=== PATIENT | female | born 1955 | race Caucasian/White ===

== ENCOUNTER 2021-07-16 11:20 | Emergency (ER) | payer MEDICARE, SELFPAY ==
[2021-07-16 11:21] VITALS: BP 187/110; PULSE 80; RESP 18; TEMP 36.1; O2SAT 97; BMI 29.8
--- NOTE | 2021-07-16 11:42 | EDS_ITS ---
HPI History of Present Illness Chief Complaint: Fall Narrative Narrative: Mechanical fall right hip pain 8 AM this morning. Visiting from [place] daughter's house, coming down wooden steps slipped falling and bouncing down 6 steps. No head injuries. No neck or back pain. Reports has a bad right hip for the past year. Seen an orthopedist in [place] initially. States since the fall cannot put weight on the hip. She had a wheelchair at home brought in by her daughter and wheelchair to the room. Denies any allergies. History of hypertension COPD hypercholesterolemia. Reports had MRIs in the past. Pain worse with weightbearing. [facility] Medical History COPD (chronic obstructive pulmonary disease) High cholesterol HTN (hypertension) Home Medications Myrbetriq 50 mg PO/SL DAILY 07/16/21 [History Last Taken Unknown] atorvastatin 40 mg PO/SL DAILY 07/16/21 [History Last Taken Unknown] docusate sodium [DOK] 100 mg PO DAILY #20 cap 07/16/21 [Rx Last Taken Unknown] gabapentin 300 mg PO/SL TID 07/16/21 [History Last Taken Unknown] lisinopril 10 mg PO/SL BID 07/16/21 [History Last Taken Unknown] oxycodone-acetaminophen [Percocet] 1 tab PO Q6H PRN 3 Days #12 tab 07/16/21 [Rx Last Taken Unknown] Allergy/AdvReac Type Severity Reaction Status Date / Time No Known Allergies Allergy Verified 07/16/21 11:26 Social History Smoking Status: Current every day smoker tobacco type: cigarettes ROS ROS ED Constitutional Constitutional ED: Denies chills, fever(s) or sweats Eyes Eyes: Denies change in vision ENT ENT ED: Denies dysphagia or sore throat Cardiovascular Cardiovascular: Denies chest pain, leg edema, palpitations or racing heartbeat Respiratory/Chest Respiratory/Chest: Denies cough, dyspnea or dyspnea on exertion Gastrointestinal Gastrointestinal: Denies abdominal pain, diarrhea, nausea or vomiting Genitourinary Genitourinary ED: Denies dysuria, hematuria or urinary frequency Musculoskeletal Musculoskeletal: Reports other Details: Right hip pain ; Denies back pain, extremity pain or neck pain Integumentary Denies rash or wounds Neurologic Neurologic: Denies headache(s), paresthesias or weakness EXAM Physical Exam Const Vital Signs: 07/16/21 11:21 07/16/21 11:29 07/16/21 13:32 Temperature 97 F L Temperature Source Temporal Pulse Rate 80 65 Respiratory Rate 18 16 Respiratory Effort Normal Respiratory Depth Normal Respiratory Pattern Normal Blood Pressure 187/110 H 159/98 H Blood Pressure Mean 135 118 Pulse Ox 97 98 Oxygen Delivery Method Room Air Room Air Room Air 07/16/21 15:14 Temperature Temperature Source Pulse Rate 86 Respiratory Rate 16 Respiratory Effort Respiratory Depth Respiratory Pattern Blood Pressure Blood Pressure Mean Pulse Ox 96 Oxygen Delivery Method Room Air Positive well nourished and well developed Constitutional Narrative: GCS 15. General Appearance ED: well developed and NAD HEENT Reports moist mucous membranes normocephalic and atraumatic Eyes PERRL, EOMs intact bilaterally and conjunctivae normal General Eye ED: Yes normal appearance of both eyes Neck no lymphadenopathy and supple Neck Narrative: No midline tenderness or step-offs. General: Negative for tenderness Chest Wall Chest: Negative for tenderness Resp normal respiratory effort and normal air movement Effort and Inspection: symmetric chest movement; Negative for respiratory distress Cardio regular rate, regular rhythm and no murmurs Peripheral Pulses: pulses 2+ throughout GI normal to inspection, nondistended, normoactive bowel sounds and non-tender Palpation: Negative for guarding or rebound tenderness present Back/Spine no CVA tenderness and no thoracic nor lumbar tenderness Back/Spine Narrative: No midline thoracic or lumbar tenderness. No step-offs. No ecchymosis. Extremity Extremity Narrative: No pelvic or ischial bone tenderness on exam. Right lower extremity no shortening or rotation, however positive logroll with pain in the groin region. Pulses intact distally. General Extremety ED: Negative for edema or tenderness General Extremity: Negative for edema Neuro oriented x3 and no sensory deficits noted Sensorium / Orientation: awake and alert Skin no rashes or lesions noted and no wounds MDM MDM MDM Narrative Medical decision making narrative: Patient mechanical fall right hip injury pain with logroll there is no shortening or rotation. X-ray reviewed by myself read by radiology no fractures however severe degenerative changes known for the past year per the patient. Patient reports did not attempt to ambulate due to pain, MRI was ordered for definitive rule out however unable to obtain due to the weekend. CT scan was obtained negative for fracture severe changes noted similar to the x-ray. She was ambulated with a walker still had pain however can still ambulate. Patient reported she would like to go home, I discussed with her definitive rule out is the MRI. She understands this. She is given follow-up with orthopedics as an outpatient. She states she does not leave home to in [place] until August 12. Prescription for pain medicines to use along with stool softeners. Return precautions discussed. All questions were answered. Lab Data Attestation: I reviewed the patient's lab results. Radiography X-Ray: Right Hip, Read by ED Physician and Read by Radiologist Diagnostic Testing: Clinical Impression(s) from Imaging Studies Hip/Pelvis X-Ray 07/16/21 12:20 IMPRESSION: No acute injury. Right end-stage hip degeneration. Electronically Signed: Kaleigh Jones MD at 13:19 EDT Tel , Service support , Pelvis CT 07/16/21 13:28 IMPRESSION: No acute injury. Right end-stage hip degeneration. Electronically Signed: Kaleigh Jones MD at 14:44 EDT Tel , Service support , Discharge Plan Triage Chief Complaint: Fall ED Provider: Wilfredo Vasques Dx/Rx/DC Orders Clinical Impression: Contusion of hip, right, Fall Instructions: ED Hip Contusion Prescriptions: New oxycodone-acetaminophen [Percocet] 5-325 mg tablet 1 tab PO Q6H PRN (Reason: pain) 3 Days Qty: 12 RF: 0 docusate sodium [DOK] 100 MG capsule 100 mg PO DAILY Qty: 20 RF: 0 No Action Myrbetriq 50 mg PO/SL DAILY RF: 0 atorvastatin 40 mg PO/SL DAILY RF: 0 gabapentin 300 mg PO/SL TID RF: 0 lisinopril 10 mg PO/SL BID RF: 0 Referrals: DAILY,MARIE [Other] Dhruv Cordova MD [STAFF PHYSICIAN] - 1 Week Activity Restrictions/Additional Instructions: X-ray and CT negative for fracture. 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 Use your walker. Pain continues will need further imaging. Follow-up with orthopedics. Return if any worsening symptoms. Disposition Disposition: Home, Self Care
[2021-07-16] MEDS: fentaNYL 100 MCG/2 ML Ampul 50 MCG IM (11:52)
--- NOTE | 2021-07-16 12:20 | RAD_ITS ---
STUDY: X-RAY - PELVIS AND RIGHT HIP REASON FOR EXAM: Female, 65 years old. injury fall this morning pain in the entire right hip TECHNIQUE: 3 views of the pelvis and hip. COMPARISON: None. FINDINGS: The bones of the pelvis are intact and the hips are located. There is end-stage degeneration of the right hip with femoral head AVN and partial collapse and extensive subchondral cystic change. Left hip is mildly degenerated. RAD/HIP, UNI W/ Pelvis 2-3 Views IMPRESSION: No acute injury. Right end-stage hip degeneration. Electronically Signed: Kaleigh Jones MD at 13:19 EDT Tel , Service support ,
--- NOTE | 2021-07-16 13:28 | CT_ITS ---
STUDY: CT PELVIS WITHOUT CONTRAST REASON FOR EXAM: Female, 65 years old. right hip injury RADIATION DOSAGE (If Supplied By Facility): CTDIvol = ( 26.19 ) mGy, DLP = ( 810.82 ) mGycm TECHNIQUE: Transaxial imaging of the pelvis was performed with oral contrast, and without intravenous administration of contrast material. Individualized dose optimization techniques were used for this CT. COMPARISON: None. FINDINGS: The bones of the pelvis are intact and the hips are located. There is end-stage degeneration of the right hip with femoral head AVN and partial collapse and extensive subchondral cystic change. Left hip is mildly degenerated. CT/Pelvis without IV Contrast IMPRESSION: No acute injury. Right end-stage hip degeneration. Electronically Signed: Kaleigh Jones MD at 14:44 EDT Tel , Service support ,
[2021-07-16 13:32] VITALS: BP 159/98; PULSE 65; RESP 16; O2SAT 98
[2021-07-16] MEDS: oxyCODONE 5 MG Tablet PO (14:46)
[2021-07-16 15:14] VITALS: PULSE 86; RESP 16; O2SAT 96
[2021-07-16 15:20] VITALS: BP 138/98; PULSE 83; RESP 18; O2SAT 94
== END 2021-07-16 15:32 | disposition home or self-care (01) ==
PROVIDERS: Emergency Provider Emergency Medicine
DX: S70.01XA Contusion of right hip, initial encounter (principal); F17.210 Nicotine dependence, cigarettes, uncomplicated; I10 Essential (primary) hypertension; E78.00 Pure hypercholesterolemia, unspecified; Z79.899 Other long term (current) drug therapy; W10.9XXA Fall (on) (from) unspecified stairs and steps, initial encounter
CPT/HCPCS: 72192; 73502; 96372; 99284; A4216

== ENCOUNTER 2021-07-27 04:44 | Observation (INO) | payer MEDICARE, SELFPAY ==
[2021-07-27] VITALS (8 sets, daily range): BP systolic 122–159; BP diastolic 89–101; PULSE 80–94; RESP 18–29; TEMP 36.4–36.7; O2SAT 93–97; BMI 29.9; BMI 29.5
--- NOTE | 2021-07-27 05:06 | EKG12_ITS ---
Test Reason : CP Blood Pressure : / mmHG Vent. Rate : 085 BPM Atrial Rate : 085 BPM P-R Int : 116 ms QRS Dur : 084 ms QT Int : 376 ms P-R-T Axes : 081 084 051 degrees QTc Int : 447 ms Normal sinus rhythm Normal ECG Confirmed by MAYUR BROWN, JUSTINO ([id number]), editorial cartoonist ZIYAD RIVERA ([id number]) on 07/28/2021 9:35:19 AM Referred By: PL Confirmed By:JUSTINO MERCHANT MD
--- NOTE | 2021-07-27 05:06 | RAD_ITS ---
STUDY: X-RAY CHEST REASON FOR EXAM: Female, 65 years old. chest pain TECHNIQUE: Single AP portable view of the chest. COMPARISON: None. FINDINGS: The lungs are clear and expanded. There is no demonstrated pleural abnormality. Normal size heart. Normal mediastinum and soumya. Normal visualized pulmonary arteries. There is atherosclerotic calcification of the aortic arch with tortuosity. There are diffuse degenerative changes of the visualized thoracic spine. Normal visualized ribs, clavicles, and shoulders. There is no demonstrated abnormality of the visualized soft tissue structures of the upper abdomen. RAD/Chest 1 View (Portable) IMPRESSION: Degenerative changes, as described above. No demonstrated acute cardiopulmonary process. Electronically Signed: Marty Felix MD at 5:32 EDT Tel , Service support ,
--- NOTE | 2021-07-27 05:08 | EDS_ITS ---
HPI History of Present Illness Chief Complaint: Chest Pain Informant: patient Narrative Narrative: Patient complains of chest pain. When I first see the patient is extremely difficult to get details from her. Is hard to get the character nature onset and duration of the pain. I have talked with the patient now 4 times to get the total story. She now describes as a pressure on the right side of her chest. It is also in the midsternal area. It radiates up to the neck when it was bad. It has been associated with nausea but no vomiting. She had diaphoresis and dyspnea. Its not clear if she was diaphoretic or not. This sounds like it woke her up or she was awake and then she developed it at about 2 AM today. It is waxed and waned but never gone away. She does have a history of cholesterol and blood pressure. She is a lifelong smoker. She has family history of heart disease with her father having heart disease starting in his 40s. She has no recent travel, surgery, immobilization, personal or family history of DVT or PE. She initially denied any lung disease or recent problems until this. Then she states she has been using her breathing treatments more the last few days. If I find out she does actually have a chronic lung disease in the form of COPD. She has been coughing more the last few days but bringing up just white sputum. No fevers or chills. She has never had pleuritic pain. No hemoptysis. Nothing specifically makes her symptoms better or worse this morning. She has had Covid immunizations. [facility] Medical History Arthritis COPD (chronic obstructive pulmonary disease) High cholesterol HTN (hypertension) Home Medications atorvastatin 40 mg PO DAILY 07/27/21 [History Last Taken Unknown] fluticasone furoate-vilanterol [Breo Ellipta] 1 inh INHALATION DAILY 07/27/21 [History Last Taken Unknown] lisinopril 10 mg PO DAILY 07/27/21 [History Last Taken Unknown] mirabegron [Myrbetriq] 50 mg PO DAILY 07/27/21 [History Last Taken Unknown] Allergy/AdvReac Type Severity Reaction Status Date / Time No Known Allergies Allergy Verified 07/27/21 04:48 Social History Smoking Status: Current every day smoker tobacco type: cigarettes ROS ROS ED Constitutional Constitutional ED: Reports sweats; Denies chills or fever(s) Eyes Eyes: Reports other Details: When this first occurred patient felt lightheaded with slight blurry vision but that was very transient and has resolved. ENT ENT ED: Denies ear pain or rhinorrhea Cardiovascular Cardiovascular: Reports as per HPI and chest pain Respiratory/Chest Respiratory/Chest: Reports cough, dyspnea and sputum Gastrointestinal Gastrointestinal: Reports nausea; Denies abdominal pain, diarrhea or vomiting Genitourinary Genitourinary ED: Denies dysuria or hematuria Musculoskeletal Musculoskeletal: Reports neck pain; Denies arthralgias, back pain or myalgias Integumentary Denies rash Neurologic Neurologic: Denies headache(s), paresthesias or weakness Endocrine Endocrinology: Denies polydipsia or polyuria Hematologic/Lymphatic Hematologic/Lymphatic: Denies easy bleeding or easy bruising Allergic/Immunologic Allergic/Immunologic ED: Denies mouth swelling or urticaria EXAM Physical Exam Const Vital Signs: 07/27/21 04:45 07/27/21 04:54 07/27/21 05:23 Temperature 97.9 F Temperature Source Oral Pulse Rate 88 80 Respiratory Rate 29 H Respiratory Pattern Normal Blood Pressure 154/101 H 159/94 H Blood Pressure Mean 118 Pulse Ox 94 Oxygen Delivery Method Room Air Oxygen Flow Rate (L/min) 07/27/21 05:27 07/27/21 05:28 07/27/21 06:10 Temperature Temperature Source Pulse Rate 84 82 Respiratory Rate 20 H Respiratory Pattern Blood Pressure 139/91 H 122/91 H Blood Pressure Mean 101 Pulse Ox 97 Oxygen Delivery Method Nasal Cannula Nasal Cannula Oxygen Flow Rate (L/min) 3 3 Patient looks a bit uncomfortable. She is not diaphoretic or pale. She carries on a normal conversation. Positive well nourished and well developed General Appearance ED: well developed; Negative for pallor HEENT Reports moist mucous membranes Eyes General Eye ED: Negative for pale conjunctiva or scleral icterus Neck no JVD Chest Wall inspection of chest normal and palpation of chest normal Chest Narrative: Palpation does not reproduce her symptoms. Resp normal respiratory effort Effort and Inspection: Negative for respiratory distress Auscultation: Negative for rales, rhonchi or wheezes Cardio regular rate, regular rhythm and no murmurs GI normal to inspection, nondistended, normoactive bowel sounds, soft to palpation, non-tender, non-distended and no masses Back/Spine no CVA tenderness Extremity normal to inspection General Extremety ED: Negative for edema, pulses abnormal or tenderness General Extremity: Negative for edema or pulses abnormal Neuro oriented x3 Sensorium / Orientation: awake and alert Psych mental status grossly normal Skin no rashes or lesions noted General Skin Exam: Negative for pallor Heart Score History: Moderately Suspicious ECG: Normal Age: >/= 65 years Risk Factors: >/= 3 Risk Factors or History of CAD Troponin: </= Normal Limit Score: 5 MDM MDM MDM Narrative Medical decision making narrative: It was very difficult to get the details of the story from the patient. She had initially denied any lung disease and then she talked about using her inhalers more for few days. I now find out she is on at least for her may be more inhalers but she does not recall the names. She is also on home oxygen at 2 L. She has a minimal white count elevation 11.1. Electrolytes show no marked abnormalities. Troponin so far is negative. D-dimer is elevated 0.83. We will get a scan of her chest. Chest x-ray did not show any acute process. We continue to get more information from the patient. She is on multiple in halers. She uses oxygen mostly at night. Although she denied any recent travel or trips, I read a recent note and she came up here from [facility] recently. I went and talked to her again. She states she did come up from [facility]. She drove. She thinks it was 1 or 2 months ago. On this repeat exam, her pain is completely gone after nitro. Her's D-dimer is positive. However this was ordered when we could not get any real details about her symptoms. We now have more details. Her symptoms sound like angina. She had pressure radiating to the neck with shortness of breath and nausea. No symptoms were relieved with nitro. I discussed case with hospitalist and the patient will be placed in PCU. Patient is also now complaining of anxiety. She has a long history of this now. She takes something at home but she does not remember what it is. But she feels anxious now but she is not having the pain or breathing problems. I will give her a small dose of Ativan. Lab Data Labs: Laboratory Results - last 24 hr 07/27/21 07/27/21 07/27/21 05:14 05:14 05:14 WBC 11.1 H RBC 4.81 Hgb 14.1 Hct 46.9 MCV 97.5 MCH 29.3 MCHC 30.1 L RDW Std Deviation 50.0 H RDW Coeff of Ricardo 13.8 Plt Count 220 MPV 10.0 Immature Gran % (Auto) 0.300 Neut % (Auto) 76.0 H Lymph % (Auto) 15.1 L [place] % (Auto) 7.3 Eos % (Auto) 0.9 Baso % (Auto) 0.4 Absolute Neuts (auto) 8.5 H Absolute Lymphs (auto) 1.68 Nucleated RBC % 0 Differential Comment SCANNED Platelet Estimate ADEQUATE D-Dimer Quant (PE/DVT) 0.83 H* Sodium 137 Potassium 4.2 Chloride 104 Carbon Dioxide 26.0 Anion Gap 7 BUN 15 Creatinine 1.03 H Estim Creat Clear Calc 45.77 Est GFR (MDRD) Af Amer 69 Est GFR (MDRD) Non-Af 57 L BUN/Creatinine Ratio 14.6 Glucose 111 H Calcium 8.7 Troponin I High Sens 18 Radiography Diagnostic Testing: Clinical Impression(s) from Imaging Studies Chest X-Ray 07/27/21 05:06 IMPRESSION: Degenerative changes, as described above. No demonstrated acute cardiopulmonary process. Electronically Signed: Marty Felix MD at 5:32 EDT Tel , Service support , EKG Initial EKG: Comments: EKG done for chest pain read by me shows normal sinus rhythm with a rate of 85. There is some baseline and motion artifact but no sign of acute ST elevation or depression. No ectopy. VT interval, QRS duration and QTc normal. No prior found. Discharge Plan Triage Chief Complaint: Chest Pain ED Provider: Kirk Garg Dx/Rx/DC Orders Clinical Impression: Chest pain Prescriptions: No Action atorvastatin 40 mg tablet 40 mg PO DAILY RF: 0 lisinopril 10 mg tablet 10 mg PO DAILY RF: 0 Myrbetriq 50 mg tablet extended release 24 hr 50 mg PO DAILY RF: 0 Breo Ellipta 100-25 mcg/dose blister with device 1 inh INHALATION DAILY RF: 0 Referrals: DAILY,MARIE [Other] Disposition Disposition: Acute Care Hospital [facility]
[2021-07-27] MEDS: Ondansetron 4 MG/2 ML Vial IV (05:20)
[2021-07-27 05:22] LABS: Absolute Lymphocyte Count 1.68 X10^3/uL (0.83-4.51); Absolute Neutrophil Count 8.5 X10^3/uL (2.0-7.7); Basophil# 0.04 X10^3/uL; Basophil% 0.4 % (0-1); Eosinophils% 0.9 % (0-5); Hematocrit 46.9 % (37-47); Hemoglobin 14.1 g/dL (12.0-15.0); Lymphocyte # 1.68 X10^3/ul (0.83-4.51); Lymphocyte % 15.1 % (19-41); Mean Corp Hgb Conc 30.1 g/dL (32-36); Mean Corpuscular Hgb 29.3 pg (27.0-32.0); Mean Corpuscular Volume 97.5 fL (81-99); Monocyte# 0.81 X10^3/uL; Monocyte% 7.3 % (0-10); NRBC Flagged by Analyzer 0 % (0-5); Neutrophil # 8.46 X10^3/uL (2.7-7.7); POSITIVE COUNT YES; Platelet Count 220 K/mm3 (150-450); RBC Distribution Width CV 13.8 % (11.6-14.6); Red Blood Count 4.81 M/mm3 (4.2-5.4); White Blood Count 11.1 K/mm3 (4.4-11.0)
[2021-07-27] MEDS: Aspirin 81 MG TAB.CHEW 324 MG PO (05:22)
[2021-07-27] MEDS: Nitroglycerin SL (ED/IMG/CATH) 0.4 MG TABLET SL ×2 (05:23→05:28)
[2021-07-27 05:24] LABS: Differential Indicated SCAN CRITERIA MET
[2021-07-27 05:41] LABS: Anion Gap 7 (5-15); BUN 15 mg/dL (7-18); BUN/Creat Ratio 14.6 RATIO (10-20); Calcium,Total 8.7 mg/dL (8.5-10.1); Chloride 104 mmol/L (98-107); Creatinine, Serum 1.03 mg/dL (0.55-1.02); EST Glomerular Filtration Rate 57 mL/min (>60); Est Glom Filt Rate - Afr Amer 69 mL/min (>60); Estimated Creatinine Clearance 45.77 ml/min; Glucose 111 mg/dL (74-106); Potassium 4.2 mmol/L (3.5-5.1); Sodium Level 137 mmol/L (136-145); Troponin-I HS 18 pg/mL (3.0-54.0)
[2021-07-27 05:45] LABS: D-Dimer Quantitative (DVT/PE) 0.83 FEU/ug/m (0.27-0.49)
[2021-07-27 06:21] LABS: Differential Comment SCANNED; Platelet Estimate ADEQUATE (ADEQ)
--- NOTE | 2021-07-27 06:23 | ED.RN ---
attempted by three nurses to access antecubital,unsuccessful
--- NOTE | 2021-07-27 06:38 | HP.PCM.HOS_ITS ---
HPI - General General Date of Admission: 07/27/21 Date of Service: 07/27/21 Chief Complaint: Chest pain HPI Narrative EVA MONTAÑO, is a 65 F with a significant history of hypertension; hyperlipidemia; arthritis; COPD on 4 L nasal cannula at night who presents to emergency department with progressively excruciating right-sided chest pain that radiated to her right neck. She described the pain as pressure. The pain started at midnight. She denies any aggravating factors to the pain. Patient received nitroglycerin sublingual at the emergency department and that made her chest pain to be resolved. Associated with her symptoms with nausea and diaphoresis. Further, she had more shortness of breath above her baseline. At the emergency department D-dimer was elevated. And the plan was to get a CTA chest. However multiple attempts to get a bigger IV line was unsuccessful and patient refused further IV lines. Emergent department report that initially patient was not giving much history but with resolution of her chest pain with nitroglycerin it was considered that her chest pain is likely an angina and not PE. She reported her father from a heart attack when his father was in his 60s. [facility] Medical History Arthritis COPD (chronic obstructive pulmonary disease) High cholesterol HTN (hypertension) Home Medications atorvastatin 40 mg PO DAILY 07/27/21 [History Last Taken Unknown] fluticasone furoate-vilanterol [Breo Ellipta] 1 inh INHALATION DAILY 07/27/21 [History Last Taken Unknown] lisinopril 10 mg PO DAILY 07/27/21 [History Last Taken Unknown] mirabegron [Myrbetriq] 50 mg PO DAILY 07/27/21 [History Last Taken Unknown] Allergy/AdvReac Type Severity Reaction Status Date / Time No Known Allergies Allergy Verified 07/27/21 04:48 Family History Other Heart disease Surgical History History of carpal tunnel surgery Social History Smoking Status: Current every day smoker tobacco type: cigarettes ROS ROS Narrative Constitutional: Denies fever, chills, fatigue, anorexia and change in weight Eyes: Denies blurry vision, change in eye color, change in vision, discharge from eye(s), double vision, erythema, eye pain, loss of vision or other HEENT: Denies abnormal hearing, dysphagia, ear pain, epistaxis, headache(s), hearing loss, nasal congestion, nasal discharge, post nasal drip, sinus pressure, sore throat or other Cardiovascular: Reports chest pain. Denies palpitations. Respiratory/Chest: Reports shortness of breath. Denies cough. Gastrointestinal: Denies abdominal pain, coffee ground emesis, constipation, diarrhea, dyspepsia, hematemesis, hematochezia, loose stools, melena, nausea, vomiting or other Genitourinary: Denies burning urination, difficulty urinating, dysuria, hematuria, nocturia, urinary frequency, urinary hesitancy, urinary incontinence, urinary urgency or other Musculoskeletal: Reports arthralgias. Denies back pain, joint swelling, my algias, neck pain or other Neurologic: Denies abnormal gait, abnormal speech, confusion, disequilibrium, dizziness, focal weakness, headache(s), numbness, paresthesias, seizure-like activity, seizures, syncope, tingling, tremor(s) or other Psychiatric: Denies anxiety, depression, homicidal ideation, suicidal ideation or other Endocrinology: Denies change in body appearance, cold intolerance, excessive sweating, heat intolerance, polydipsia, polyuria or other Hematologic/Lymphatic: Denies anemia, easy bleeding, easy bruising, lymphadenopathy or other Integumentary: Denies rashes Allergic/Immunologic: Denies rhinitis, hives, eczema, asthma or other Vital Signs Vital Signs Vital Signs: 07/27/21 04:45 07/27/21 04:54 07/27/21 05:23 Temperature 97.9 F Temperature Source Oral Pulse Rate 88 80 Respiratory Rate 29 H Respiratory Pattern Normal Blood Pressure 154/101 H 159/94 H Blood Pressure Mean 118 Pulse Ox 94 Oxygen Delivery Method Room Air Oxygen Flow Rate (L/min) 07/27/21 05:27 07/27/21 05:28 07/27/21 06:10 Temperature Temperature Source Pulse Rate 84 82 Respiratory Rate 20 H Respiratory Pattern Blood Pressure 139/91 H 122/91 H Blood Pressure Mean 101 Pulse Ox 97 Oxygen Delivery Method Nasal Cannula Nasal Cannula Oxygen Flow Rate (L/min) 3 3 07/27/21 06:27 Temperature 98.0 F Temperature Source Oral Pulse Rate 82 Respiratory Rate 18 Respiratory Pattern Blood Pressure 122/91 H Blood Pressure Mean 101 Pulse Ox 97 Oxygen Delivery Method Nasal Cannula Oxygen Flow Rate (L/min) 3 Weight Weight: 79.2 kg Body Mass Index (BMI) 29.9 Physical Exam Narrative Physical exam: General: Well-nourished, well-developed. Head: Normocephalic, atraumatic, no tenderness Eyes: PERRLA, EOMI ENT, no trauma, moist mucous membranes, no rhinorrhea Neck: Nontender, full range of motion, no spinal tenderness, deformities, step- off CVS: Regular rate and rhythm. S1-S2 present. No murmur, gallop or rub. Respiratory : Wheezes, chest wall nontender. Abdomen: Soft, nontender, nondistended, normal bowel sounds, no masses : Deferred Back: Nontender, no CVA tenderness, no midline spinal tenderness, deformities, step-offs Extremities: Nontender full range of motion, no trauma Skin: Normal color, no trauma, abrasions Neuro: Alert, oriented, cranial nerves II through XII grossly intact. Psychiatry: Normal mood. Normal affect. Not depressed. Not anxious. Results Lab / Micro Data Result Diagrams: 07/27/21 05:14 07/27/21 05:14 Labs: Laboratory Results - last 24 hr 07/27/21 05:14: WBC 11.1 H, RBC 4.81, Hgb 14.1, Hct 46.9, MCV 97.5, MCH 29.3, MCHC 30.1 L, RDW Std Deviation 50.0 H, RDW Coeff of Ricardo 13.8, Plt Count 220, MPV 10.0, Immature Gran % (Auto) 0.300, Neut % (Auto) 76.0 H, Lymph % (Auto) 15.1 L, [place] % (Auto) 7.3, Eos % (Auto) 0.9, Baso % (Auto) 0.4, Absolute Neuts (auto) 8.5 H, Absolute Lymphs (auto) 1.68, Nucleated RBC % 0, Differential Comment SCANNED, Platelet Estimate ADEQUATE 07/27/21 05:14: D-Dimer Quant (PE/DVT) 0.83 H* 07/27/21 05:14: Sodium 137, Potassium 4.2, Chloride 104, Carbon Dioxide 26.0, Anion Gap 7, BUN 15, Creatinine 1.03 H, Estim Creat Clear Calc 45.77, Est GFR (MDRD) Af Amer 69, Est GFR (MDRD) Non-Af 57 L, BUN/Creatinine Ratio 14.6, Glucose 111 H, Calcium 8.7, Troponin I High Sens 18 Radiology Impression Chest X-Ray 07/27/21 05:06 IMPRESSION: Degenerative changes, as described above. No demonstrated acute cardiopulmonary process. Electronically Signed: Marty Felix MD at 5:32 EDT Tel , Service support , Assessment & Plan Assessment/Plan (1) Chest pain: QUALIFIERS: Ischemic chest pain type: stable angina pectoris Chest pain type: chest pain due to myocardial ischemia Qualified Code(s): I20.8 - Other forms of angina pectoris PLAN: Chest pain Place on a monitored bed at progressive care unit Actual CXR image was independently visualized. No acute cardiopulmonary process was noted. Actual EKG tracing was independently visualized. EKG tracing showed normal sinus rhythm with no ST-T wave abnormality. Received aspirin 324 mg in the emergency department. We will check lipid panel. Initial troponin was negative. Serial cardiac enzymes ordered Stat EKG as needed for chest pain Chemical stress test in the AM if the cardiac enzymes are negative. Of note patient has arthritis and will be able to do a treadmill stress test. COPD Stable ICS?beta agonist continued. As needed albuterol ordered. Hypertension Blood pressure is not within goal Lisinopril continued. Trend blood pressure and adjust blood pressure medications. Hyperlipidemia Lipitor continued Overactive bladder Mirabegron continued DVT prophylaxis SCD ordered Charges/Coding Visit Charges OBSV E&M: 35617 Initial observation care L2
--- NOTE | 2021-07-27 06:58 | EKG12_ITS ---
Test Reason : CP ADMIT Blood Pressure : / mmHG Vent. Rate : 081 BPM Atrial Rate : 081 BPM P-R Int : 154 ms QRS Dur : 080 ms QT Int : 398 ms P-R-T Axes : 068 063 059 degrees QTc Int : 462 ms Normal sinus rhythm Normal ECG Confirmed by MAYUR BROWN, JUSTINO ([id number]), editor producer ZIYAD RIVERA ([id number]) on 08/10/2021 9:03:56 AM Referred By: TYSON Confirmed By:JUSTINO MERCHANT MD
--- NOTE | 2021-07-27 07:05 | PCS.PANDOC ---
PANDEMIC DOCUMENTATION INITIATED: Date: 05/15/2021 Time: 190
[2021-07-27 07:31] LABS: Cholesterol 187 mg/dL (200); High Density Lipoprotein 70 mg/dL; Triglycerides 105 mg/dL; Very Low Density Lipoprotein 21 mg/dL (5-40)
[2021-07-27 08:20] LABS: Troponin-I HS 16 pg/mL (3.0-54.0)
--- NOTE | 2021-07-27 10:20 | NURSING ---
Pt educated on risks of leaving AMA. Pt states understanding of these risks and still plans to leave AMA.
--- NOTE | 2021-07-27 19:08 | DS.PCM_ITS ---
Providers Date of Admission: 07/27/21 Date of Discharge: 07/27/21 Reason For Visit: CHEST PAIN Diagnosis Discharge Diagnosis (1) Chest pain: Status: Acute Code(s): R07.9 - Chest pain, unspecified Qualifiers: Chest pain type: chest pain due to myocardial ischemia Ischemic chest pain type: stable angina pectoris Qualified Code(s): I20.8 - Other forms of angina pectoris Plan: 1. Chest pain-etiology unknown #2 hyperlipidemia #3 chronic obstructive pulmonary disease #4 essential hypertension #5 noncompliance with medical regimen-patient signed out AMA Medications at Discharge Home Medications atorvastatin 40 mg PO DAILY 07/27/21 fluticasone furoate-vilanterol [Breo Ellipta] 1 inh INHALATION DAILY 07/27/21 lisinopril 20 mg PO DAILY 07/27/21 mirabegron [Myrbetriq] 50 mg PO DAILY 07/27/21 Hospital Course Operations None Procedures None Summary of Care Provided Minutes Spent on Discharge: 30 Hospital Course: Patient was seen in the emergency room at [facility] with a chief complaint of chest pain. She described as pressure-like in nature and on the right side with radiation to her neck area. Work-up in the emergency room revealed elevated D-dimer, the plan was to get a CTA of her chest however after multiple attempts and placing a larger IV line, this was unsuccessful and the patient refused any further IV lines. Patient was given a nitroglycerin which resolved her chest pain. Patient had a chest x-ray which showed degenerative changes in her spine but no acute cardiopulmonary process. Her EKG showed a normal sinus rhythm with no ST-T wave abnormality. Patient was placed in observation status on PCU. Patient was examined on 07/27/2021: On examination she appeared in good health and spirits, she does not appear to be in any distress. Vital signs as documented. Skin warm and dry and without overt rashes. Neck without JVD, thyroid appears normal, trachea is midline, neck is supple. Lungs clear, normal air movement was noted. Heart exam notable for regular rhythm, normal sounds and absence of murmurs, rubs or gallops. Abdomen unremarkable and without evidence of organomegaly, masses, or abdominal aortic enlargement, bowel sounds are present in all 4 quadrants, no abdominal tenderness was noted. Extremities noned ematous, no cyanosis was noted, no clubbing was noted. Neuro: Cranial nerves II through XII are grossly intact, no focal motor deficits were noted, sensation to light touch and pinprick is intact, motor exam 5/5 throughout. Psych: Patient is alert and oriented x3, she does not appear anxious or depressed, she does not appear agitated. Patient became insistent on being discharged in the matrix repairer hours of 07/27/2021, she stated she did not want to undergo a stress test, I talked with her briefly and warned her about the possibility of her having undiagnosed coronary disease. She decided to check out AMA anyway and she was discharged AMA. Weight / BMI Weight Weight: 78 kg Body Mass Index (BMI) 29.5 ABG / Lab / Microbiology Data Result Diagrams: 07/27/21 05:14 07/27/21 05:14 Laboratory: Laboratory Results - last 24 hr 07/27/21 05:14: WBC 11.1 H, RBC 4.81, Hgb 14.1, Hct 46.9, MCV 97.5, MCH 29.3, MCHC 30.1 L, RDW Std Deviation 50.0 H, RDW Coeff of Ricardo 13.8, Plt Count 220, MPV 10.0, Immature Gran % (Auto) 0.300, Neut % (Auto) 76.0 H, Lymph % (Auto) 15.1 L , [place] % (Auto) 7.3, Eos % (Auto) 0.9, Baso % (Auto) 0.4, Absolute Neuts (auto) 8.5 H, Absolute Lymphs (auto) 1.68, Nucleated RBC % 0, Differential Comment SCANNED, Platelet Estimate ADEQUATE 07/27/21 05:14: D-Dimer Quant (PE/DVT) 0.83 H* 07/27/21 05:14: Sodium 137, Potassium 4.2, Chloride 104, Carbon Dioxide 26.0, A nion Gap 7, BUN 15, Creatinine 1.03 H, Estim Creat Clear Calc 45.77, Est GFR (MDRD) Af Amer 69, Est GFR (MDRD) Non-Af 57 L, BUN/Creatinine Ratio 14.6, Glucose 111 H, Calcium 8.7, Troponin I High Sens 18 07/27/21 05:14: Triglycerides 105, Cholesterol 187, LDL Cholesterol 96, VLDL Cholesterol 21, HDL Cholesterol 70 07/27/21 07:54: Troponin I High Sens 16 Radiography Diagnostic Testing: Radiology Impression Chest X-Ray 07/27/21 05:06 IMPRESSION: Degenerative changes, as described above. No demonstrated acute cardiopulmonary process. Electronically Signed: Marty Felix MD at 5:32 EDT Tel , Service support , Meaningful Use Info Meaningful Use Diagnoses (Choose all that apply): None applicable Discharge Plan Admission Admit Date/Time: 07/27/21 06:30 Attending Provider: Rell Rowell Instructions Additional Instructions / Restrictions: Patient Problems: Patient Goals: Discharge Orders/Prescriptions Prescriptions: No Action atorvastatin 40 mg tablet 40 mg PO DAILY RF: 0 lisinopril 10 mg tablet 20 mg PO DAILY RF: 0 Myrbetriq 50 mg tablet extended release 24 hr 50 mg PO DAILY RF: 0 Breo Ellipta 100-25 mcg/dose blister with device 1 inh INHALATION DAILY RF: 0 Referrals / Follow Up: DAILY,MARIE [Other] Disposition Discharge Orders: Discharge Patient (Routine); Ordered 07/27/21 Ordered By: Dr. Rell Rowell Charges/Coding Visit Charges OBSV E&M: 87898 Observ/hosp same date L3
== END 2021-07-27 10:53 | disposition left against medical advice (07) ==
LOC: ED 06:38 → PCU 06:49
PROVIDERS: Admitting Provider Hospitalist; Emergency Provider Emergency Medicine; Visit Provider Internal Medicine
DX: I20.8 Other forms of angina pectoris (principal); E78.5 Hyperlipidemia, unspecified; J44.9 Chronic obstructive pulmonary disease, unspecified; I10 Essential (primary) hypertension; F17.210 Nicotine dependence, cigarettes, uncomplicated; M19.90 Unspecified osteoarthritis, unspecified site; Z79.51 Long term (current) use of inhaled steroids; Z91.19 Patient's noncompliance with other medical treatment and regimen; Z79.899 Other long term (current) drug therapy; Z82.49 Family history of ischemic heart disease and other diseases of the circulatory system; Z99.81 Dependence on supplemental oxygen; N32.81 Overactive bladder
CPT/HCPCS: 71045; 80048; 80061; 84484; 85025; 85379; 93005; 96374; 99218; 99285; A4216; G0378; J2405; J2785

== ENCOUNTER 2021-08-23 15:25 | Inpatient (IN) | payer MEDICARE, SELFPAY ==
[2021-08-23 15:26] VITALS: BP 152/102; PULSE 107; RESP 14; TEMP 36.2; O2SAT 95; BMI 29.7
--- NOTE | 2021-08-23 15:48 | EDS_ITS ---
HPI History of Present Illness Chief Complaint: Substance Abuse Narrative Narrative: 66-year-old female with chronic right hip pain presenting for opioid detox. She states she is been taking oxycodone for years. She was previously on [place] with her family but due to difficulties managing her she moved here to stay with family. She has been here for about a month. She states she saw Dr. Cordova who did give her Ultram. She admits to taking the Ultram excessively. She states that after she was given a refill she was told to states the last for her to take it only twice a day but she states she went through it 3 days. She states she is also been getting oxycodone from wherever she can get it from. I asked her how much she is taking a day and she does not know the dosage and milligrams of the oxycodone. Her daughter states she will take a handful of pills at a time. Patient states that she quit cold turkey 2 days ago because she ran out of medications and her daughter will pay for her addiction habit. [facility] Medical History Arthritis COPD (chronic obstructive pulmonary disease) High cholesterol HTN (hypertension) Home Medications atorvastatin 40 mg PO DAILY 07/27/21 [History Last Taken Unknown] fluticasone furoate-vilanterol [Breo Ellipta] 1 inh INHALATION DAILY 07/27/21 [History Last Taken Unknown] lisinopril 20 mg PO DAILY 07/27/21 [History Last Taken Unknown] mirabegron [Myrbetriq] 50 mg PO DAILY 07/27/21 [History Last Taken Unknown] Allergy/AdvReac Type Severity Reaction Status Date / Time No Known Allergies Allergy Verified 07/27/21 04:48 Family History Other Heart disease Surgical History History of carpal tunnel surgery Social History Smoking Status: Current every day smoker tobacco type: cigarettes ROS ROS ED Constitutional Constitutional ED: Denies fever(s) or subjective Eyes Eyes: Denies blurry vision or change in vision ENT ENT ED: Denies rhinorrhea or sore throat Cardiovascular Cardiovascular: Denies chest pain or palpitations Respiratory/Chest Respiratory/Chest: Denies cough or dyspnea Gastrointestinal Gastrointestinal: Denies abdominal pain, nausea or vomiting Musculoskeletal Musculoskeletal: Reports other Details: Right hip pain. Muscle spasms. Integumentary Denies abscess or rash Neurologic Neurologic: Denies headache(s) Psychiatric Psychiatric: Denies suicidal ideation or suicidal thoughts EXAM Physical Exam Const Vital Signs: 08/23/21 15:26 Temperature 97.2 F L Temperature Source Temporal Pulse Rate 107 H Respiratory Rate 14 Blood Pressure 152/102 H Blood Pressure Mean 118 Pulse Ox 95 Oxygen Delivery Method Room Air Positive well nourished General Appearance ED: NAD HEENT Reports moist mucous membranes atraumatic Eyes PERRL and EOMs intact bilaterally Resp normal respiratory effort and clear to auscultation bilaterally GI soft to palpation, non-tender and non-distended Neuro oriented x3 and CN's II-XII intact bilaterally Sensorium / Orientation: alert Psych mental status grossly normal Skin Lesions: no lesions Rashes: no rashes MDM MDM MDM Narrative Medical decision making narrative: 66-year-old female presenting for opioid detox. She states that she is having muscle cramping in her lower extremities and she thinks she is withdrawing. Patient's last use of anything was 2 days ago because she ran out of this. She admits to using multiple medications which include oxycodone and Ultram. Her blood work today is normal. Urine drug screen is negative. EtOH is negative. Patient was given Toradol and Norflex IM for her muscle spasms. Given that the patient's urine drug screen was negative is possible she could've taken something synthetic as she has been getting this for multiple places. I discussed with hospitalist for admission. Impression: 1. Opioid detox Lab Data Attestation: I reviewed the patient's lab results. Labs: Laboratory Results - last 24 hr 08/23/21 08/23/21 08/23/21 16:01 16:10 16:10 WBC 11.0 RBC 5.37 Hgb 15.4 H Hct 47.5 H MCV 88.5 MCH 28.7 MCHC 32.4 RDW Std Deviation 43.3 RDW Coeff of Ricardo 13.3 Plt Count 468 H MPV 9.2 Immature Gran % (Auto) 0.400 Neut % (Auto) 76.1 H Lymph % (Auto) 14.3 L [place] % (Auto) 8.3 Eos % (Auto) 0.4 Baso % (Auto) 0.5 Absolute Neuts (auto) 8.4 H Absolute Lymphs (auto) 1.57 Nucleated RBC % 0 Sodium 132 L Potassium 3.8 Chloride 97 L Carbon Dioxide 26.0 Anion Gap 9 BUN 12 Creatinine 1.15 H Estim Creat Clear Calc 40.43 Est GFR (MDRD) Af Amer 60 Est GFR (MDRD) Non-Af 50 L BUN/Creatinine Ratio 10.4 Glucose 116 H Calcium 9.8 Urine Opiates Screen NEGATIVE Urine Methadone Screen NEGATIVE Ur Barbiturates Screen NEGATIVE Ur Phencyclidine Scrn NEGATIVE Ur Amphetamines Screen NEGATIVE U Methamphetamin-MDMA NEGATIVE U Benzodiazepines Scrn NEGATIVE Urine Cocaine Screen NEGATIVE U Cannabinoids Screen NEGATIVE Ur Drug Screen Comment Ethyl Alcohol 08/23/21 16:10 WBC RBC Hgb Hct MCV MCH MCHC RDW Std Deviation RDW Coeff of Ricardo Plt Count MPV Immature Gran % (Auto) Neut % (Auto) Lymph % (Auto) [place] % (Auto) Eos % (Auto) Baso % (Auto) Absolute Neuts (auto) Absolute Lymphs (auto) Nucleated RBC % Sodium Potassium Chloride Carbon Dioxide Anion Gap BUN Creatinine Estim Creat Clear Calc Est GFR (MDRD) Af Amer Est GFR (MDRD) Non-Af BUN/Creatinine Ratio Glucose Calcium Urine Opiates Screen Urine Methadone Screen Ur Barbiturates Screen Ur Phencyclidine Scrn Ur Amphetamines Screen U Methamphetamin-MDMA U Benzodiazepines Scrn Urine Cocaine Screen U Cannabinoids Screen Ur Drug Screen Comment Ethyl Alcohol < 3.0 Discharge Plan Triage Chief Complaint: Substance Abuse ED Provider: Mickey Diaz Dx/Rx/DC Orders Prescriptions: No Action atorvastatin 40 mg tablet 40 mg PO DAILY RF: 0 lisinopril 10 mg tablet 20 mg PO DAILY RF: 0 Myrbetriq 50 mg tablet extended release 24 hr 50 mg PO DAILY RF: 0 Breo Ellipta 100-25 mcg/dose blister with device 1 inh INHALATION DAILY RF: 0 Primary Care Provider: NOT,DEFINED
[2021-08-23 16:16] LABS: Absolute Lymphocyte Count 1.57 X10^3/uL (0.83-4.51); Absolute Neutrophil Count 8.4 X10^3/uL (2.0-7.7); Basophil# 0.06 X10^3/uL; Basophil% 0.5 % (0-1); Eosinophil# 0.04 X10^3/uL; Eosinophils% 0.4 % (0-5); Hematocrit 47.5 % (37-47); Hemoglobin 15.4 g/dL (12.0-15.0); Lymphocyte # 1.57 X10^3/ul (0.83-4.51); Lymphocyte % 14.3 % (19-41); Mean Corp Hgb Conc 32.4 g/dL (32-36); Mean Corpuscular Hgb 28.7 pg (27.0-32.0); Mean Corpuscular Volume 88.5 fL (81-99); Mean Platelet Vol. 9.2 fl (6.2-12.0); Monocyte# 0.91 X10^3/uL; Monocyte% 8.3 % (0-10); NRBC Flagged by Analyzer 0 % (0-5); Neutrophil # 8.35 X10^3/uL (2.7-7.7); Neutrophil % 76.1 % (47-70); Platelet Count 468 K/mm3 (150-450); RBC Distribution Width CV 13.3 % (11.6-14.6); RBC Distribution Width SD 43.3 fl (35.1-43.9); Red Blood Count 5.37 M/mm3 (4.2-5.4)
[2021-08-23 16:23] LABS: Amphetamine Urine VISTA NEGATIVE (<1000 ng/mL); Barbiturate Urine VISTA NEGATIVE (< 200 ng/mL); Benzodiazepine Urine VISTA NEGATIVE (< 200 ng/mL); Cocaine Urine VISTA NEGATIVE (< 300 ng/mL); Ecstacy Urine VISTA NEGATIVE (< 500 ng/mL); Methadone Urine VISTA NEGATIVE (< 300 ng/mL); PCP Urine VISTA NEGATIVE (< 25 ng/mL); THC Urine VISTA NEGATIVE (< 50 ng/mL); Vista UDS pH Range 6
[2021-08-23] MEDS: Orphenadrine 60 MG/2 ML Ampul IM (16:34)
[2021-08-23] MEDS: Ketorolac 15 MG/ML Vial IM (16:35)
[2021-08-23 16:38] LABS: Anion Gap 9 (5-15); BUN 12 mg/dL (7-18); BUN/Creat Ratio 10.4 RATIO (10-20); Calcium,Total 9.8 mg/dL (8.5-10.1); Chloride 97 mmol/L (98-107); Creatinine, Serum 1.15 mg/dL (0.55-1.02); EST Glomerular Filtration Rate 50 mL/min (>60); Est Glom Filt Rate - Afr Amer 60 mL/min (>60); Estimated Creatinine Clearance 40.43 ml/min; Glucose 116 mg/dL (74-106); Potassium 3.8 mmol/L (3.5-5.1); Sodium Level 132 mmol/L (136-145)
--- NOTE | 2021-08-23 16:46 | ED.RN ---
Pt. having full body spasms. Reported pain in right leg. Dr. Diaz notified. See med order that followed. Will continue to monitor.
[2021-08-23 16:54] LABS: Alcohol, Blood (Medical)-Serum < 3.0 mg/dL
--- NOTE | 2021-08-23 17:03 | NURSING ---
MED SURG WHITE OPIOD DETOX
--- NOTE | 2021-08-23 17:11 | PCM.HP.STD ---
Documented by User: Pavan COHEN 08/23/21 17:31 HPI - General General Date of Admission: 08/23/21 Date of Service: 08/23/21 Chief Complaint: Substance abuse HPI Narrative EVA MONTAÑO is a 66-year-old female who presents to the ED at [facility] on 08/23/2021 with a chief complaint of substance abuse/impending withdrawal. Patient reports that her last time using was 2 days ago, and that she has been trying to get clean since. Patient is unaware of what she last took or and what amounts. Patient has a greater than 10-year history of polysubstance abuse of various prescription and illicit drugs to include opiates, kratom, marijuana, cocaine, gabapentin and anything I can get my hands on. Patient reports that she abuses substances to try and manage her chronic pain, but denies wanting to hurt or kill herself. Patient reports following with Dr. Cordova for her back pain who recently prescribed her Ultram, which her and her daughter admit that she abuses. Patient has a scheduled hip surgery with Dr. Cordova on August,. Vital signs in the ED are temperature of 97.2 ?F, HR of 107, BP of 152/100, RR of 14 and patient is currently satting 95% on room air. CBC does not demonstrate a leukocytosis or anemia and platelets are 470,000. BMP shows sodium is 132, creatinine is 1.1. Urine tox screen is pannegative. Ethyl alcohol is within normal limits. [facility] Medical History Arthritis COPD (chronic obstructive pulmonary disease) High cholesterol HTN (hypertension) Hypercholesterolemia Overactive bladder Home Medications atorvastatin 40 mg PO DAILY 07/27/21 [History Last Taken Unknown] fluticasone furoate-vilanterol [Breo Ellipta] 1 inh INHALATION DAILY 07/27/21 [History Last Taken Unknown] lisinopril 20 mg PO DAILY 07/27/21 [History Last Taken Unknown] mirabegron [Myrbetriq] 50 mg PO DAILY 07/27/21 [History Last Taken Unknown] Allergy/AdvReac Type Severity Reaction Status Date / Time No Known Allergies Allergy Verified 07/27/21 04:48 Family History (Updated 08/23/21 @ 17:20 by Pavan COHEN) Father CAD (coronary artery disease) Heart disease CVA (cerebral vascular accident) Mother Colon cancer Surgical History (Updated 08/23/21 @ 17:21 by Pavan COHEN) H/O: hysterectomy History of carpal tunnel surgery History of mandibular surgery Social History (Updated 08/23/21 @ 17:22 by Pavan COHEN) Smoking Status: Current every day smoker tobacco type: cigarettes Smoking packs per day: 1.5 Smoking cigarettes per day: 30.0 Years smoked: 50 Smoking pack-years: 75.00 Tobacco: How many years used: 50 alcohol intake: former substance use type: marijuana, crack/cocaine, heroin, amphetamines, sedatives, opiates, painkillers, methamphetamine and prescription drug ROS Constitutional Constitutional: Reports weakness; Denies anorexia, change in weight, chills, fatigue, fever(s), malaise, night sweats or other Eyes Eyes: Denies blurry vision, change in eye color, change in vision, discharge from eye(s), double vision, erythema, eye pain, loss of vision or other ENT HEENT: Denies abnormal hearing, dysphagia, ear pain, epistaxis, headache(s), hearing loss, nasal congestion, nasal discharge, post nasal drip, sinus pressure, sore throat or other Cardiovascular Cardiovascular: Denies chest pain, claudication, dyspnea on exertion, edema, lightheadedness, orthopnea, palpitations, paroxysmal nocturnal dyspnea, rapid heart rate, syncope or other Respiratory/Chest Respiratory/Chest: Denies cough, dyspnea, excessive phlegm production, hemoptysis, productive cough, shortness of breath at rest, shortness of breath with exertion, wheezing or other Gastrointestinal Gastrointestinal: Denies abdominal pain, coffee ground emesis, constipation, diarrhea, dyspepsia, hematemesis, hematochezia, loose stools, melena, nausea, vomiting or other Genitourinary Genitourinary: Denies burning urination, difficulty urinating, dysuria, hematuria, nocturia, urinary frequency, urinary hesitancy, urinary incontinence, urinary urgency or other Musculoskeletal Musculoskeletal: Reports arthralgias, back pain and joint pain; Denies joint stiffness, joint swelling, myalgias, neck pain or other Neurologic Neurologic: Denies abnormal gait, abnormal speech, confusion, disequilibrium, dizziness, focal weakness, headache(s), numbness, paresthesias, seizure-like activity, seizures, syncope, tingling, tremor(s) or other Psychiatric Psychiatric: Reports anxiety and depression; Denies homicidal ideation, suicidal ideation or other Endocrine Endocrinology: Denies change in body appearance, cold intolerance, excessive sweating, heat intolerance, polydipsia, polyuria or other Hematologic/Lymphatic Hematologic/Lymphatic: Denies anemia, easy bleeding, easy bruising, lymphadenopathy or other Allergic/Immunologic Allergic/Immunologic: Denies rhinitis, hives, eczemia, asthma or other Vital Signs Vital Signs Vital Signs: 08/23/21 15:26 Temperature 97.2 F L Temperature Source Temporal Pulse Rate 107 H Respiratory Rate 14 Blood Pressure 152/102 H Blood Pressure Mean 118 Pulse Ox 95 Oxygen Delivery Method Room Air Weight Weight: 173 lb Body Mass Index (BMI) 29.7 Physical Exam Const alert and oriented x3 General Appearance: cooperative HEENT normocephalic, head/scalp atraumatic, hearing grossly normal bilaterally and moist oral mucous membranes Eyes PERRL, EOMs intact bilaterally and conjunctivae normal Neck no lymphadenopathy, supple and no JVD Resp normal respiratory effort, no retractions, no use of accessory muscles and clear to auscultation bilaterally Cardio regular rate, regular rhythm, no murmurs and no JVD GI normal to inspection, nondistended, normoactive bowel sounds, soft to palpation, non-tender and non-distended Extremity normal to inspection, full ROM and no clubbing, cyanosis or edema Skin no rashes or lesions noted, no wounds and skin turgor normal Neuro CN's II-XII intact bilaterally Psych Mood & Affect: anxious Results Lab / Micro Data Result Diagrams: 08/23/21 16:10 08/23/21 16:10 Labs: Laboratory Results - last 24 hr 08/23/21 16:01: Urine Opiates Screen NEGATIVE, Urine Methadone Screen NEGATIVE, Ur Barbiturates Screen NEGATIVE, Ur Phencyclidine Scrn NEGATIVE, Ur Amphetamines Screen NEGATIVE, U Methamphetamin-MDMA NEGATIVE, U Benzodiazepines Scrn NEGATIVE, Urine Cocaine Screen NEGATIVE, U Cannabinoids Screen NEGATIVE, Ur Drug Screen Comment 08/23/21 16:10: WBC 11.0, RBC 5.37, Hgb 15.4 H, Hct 47.5 H, MCV 88.5, MCH 28.7, MCHC 32.4, RDW Std Deviation 43.3, RDW Coeff of Ricardo 13.3, Plt Count 468 H, MPV 9.2, Immature Gran % (Auto) 0.400, Neut % (Auto) 76.1 H, Lymph % (Auto) 14.3 L, [place] % (Auto) 8.3, Eos % (Auto) 0.4, Baso % (Auto) 0.5, Absolute Neuts (auto) 8.4 H, Absolute Lymphs (auto) 1.57, Nucleated RBC % 0 08/23/21 16:10: Sodium 132 L, Potassium 3.8, Chloride 97 L, Carbon Dioxide 26.0, Anion Gap 9, BUN 12, Creatinine 1.15 H, Estim Creat Clear Calc 40.43, Est GFR (MDRD) Af Amer 60, Est GFR (MDRD) Non-Af 50 L, BUN/Creatinine Ratio 10.4, Glucose 116 H, Calcium 9.8 08/23/21 16:10: Ethyl Alcohol < 3.0 Assessment & Plan Assessment/Plan (1) Polysubstance abuse: PLAN: Patient is a 66-year-old female who presents to the ED at [facility] on 08/23/2021 for management of polysubstance abuse and impending withdrawal. Patient will be admitted for management of impending withdrawal and medical stabilization. 1) polysubstance abuse Patient reports a greater than 10-year history of polysubstance abuse to include opiates, kratom, marijuana, cocaine, gabapentin and anything I can get my hands on. Patient reports that her last time using was 2 days ago, but is unclear of what she took or how much. Urine tox screen is fox negative and ethyl alcohol is within normal limits. Consider synthetic drugs as reason for negative screen. Plan; admit to MedSurg, initiate buprenorphine taper, Tylenol as needed, albuterol as needed, Dulcolax as needed, clonidine as needed, Bentyl as needed, gabapentin as needed, IV hydralazine as needed, Vistaril as needed, Motrin as needed, Imodium as needed, Mylanta as needed, methocarbamol as needed, Zofran as needed, senna as needed, trazodone as needed, case management consult ordered, when he did meet with patient. 2) hyperlipidemia Continue statin. 3) HTN Continue lisinopril. As needed hydralazine ordered. 4) upcoming hip surgery Patient reports following with Dr. Cordova, and has an upcoming hip surgery on September 08. This may complicate patient's recovery in regards to #1. 5) COPD Not in acute exacerbation, hold home Breo Ellipta and albuterol. As needed albuterol ordered as above. DVT prophylaxis -Lovenox and SCDs. CODE STATUS: Full code Advance care planning: Patient does not have designated healthcare power of employment law attorney. Patient's daughter, Shaniqua, is patient's next of kin. Patient seen by Pavan Fournier PA-C, under the supervision of Dr. Tyson. Documented by User: Dr. Varsha Tyson MD 08/23/21 19:46 HPI - General General Date of Admission: 08/23/21 [facility] Medical History Arthritis COPD (chronic obstructive pulmonary disease) High cholesterol HTN (hypertension) Hypercholesterolemia Overactive bladder Home Medications atorvastatin 40 mg PO DAILY 07/27/21 [History Last Taken Unknown] fluticasone furoate-vilanterol [Breo Ellipta] 1 inh INHALATION DAILY 07/27/21 [History Last Taken Unknown] lisinopril 20 mg PO DAILY 07/27/21 [History Last Taken Unknown] mirabegron [Myrbetriq] 50 mg PO DAILY 07/27/21 [History Last Taken Unknown] Allergy/AdvReac Type Severity Reaction Status Date / Time No Known Allergies Allergy Verified 07/27/21 04:48 Family History (Updated 08/23/21 @ 17:20 by Pavan COHEN) Father CAD (coronary artery disease) Heart disease CVA (cerebral vascular accident) Mother Colon cancer Surgical History (Updated 08/23/21 @ 17:21 by Pavan COHEN) H/O: hysterectomy History of carpal tunnel surgery History of mandibular surgery Social History (Updated 08/23/21 @ 17:22 by Pavan COHEN) Smoking Status: Current every day smoker tobacco type: cigarettes Smoking packs per day: 1.5 Smoking cigarettes per day: 30.0 Years smoked: 50 Smoking pack-years: 75.00 Tobacco: How many years used: 50 alcohol intake: former substance use type: marijuana, crack/cocaine, heroin, amphetamines, sedatives, opiates, painkillers, methamphetamine and prescription drug Results Lab / Micro Data Result Diagrams: 08/23/21 16:10 08/23/21 16:10
[2021-08-23 17:16] LABS: Magnesium 2.1 mg/dL (1.6-2.6); Phosphorus 3.5 mg/dL (2.5-4.9)
[2021-08-23 17:18] VITALS: BP 155/100; PULSE 86; RESP 19; TEMP 36.2; O2SAT 94
[2021-08-23 18:07] VITALS: BMI 29.7
[2021-08-23 18:08] VITALS: BP 139/106; PULSE 89; RESP 18; TEMP 36.8; O2SAT 95
[2021-08-23] MEDS: Lactated Ringers 1,000 ML 125 ML IV (18:45)
[2021-08-23] MEDS: 0.9% Saline Lock 10 ML Syringe IV (18:45)
[2021-08-23] MEDS: Gabapentin 300 MG Capsule PO (18:53)
[2021-08-23] MEDS: hydrOXYzine PAM 25 MG Capsule 50 MG PO (18:53)
[2021-08-23] MEDS: Buprenorphine HCl 2 MG TAB.SUBL SL (18:54)
[2021-08-23] MEDS: Methocarbamol 750 MG Tablet 1500 MG PO (18:54)
[2021-08-23 20:17] VITALS: PULSE 88; RESP 18; O2SAT 94
[2021-08-23] MEDS: Ipratropium/Albuterol Sulfate 3 ML AMPUL.NEB INHALATION (20:17)
--- NOTE | 2021-08-23 20:39 | CM.ED ---
SOCIAL WORK Patient admitted to [facility] for opiate withdrawal management. Treatment NavigatorYuliet updated on patient's admission. Anticipate assessment be completed tomorrow or Saturday due to holiday. Plan: MERVIN Conn, CITY COLLECTOR
[2021-08-23] MEDS: Dicyclomine 10 MG Capsule 20 MG PO (21:32)
[2021-08-23] MEDS: Atorvastatin Calcium 40 MG Tablet PO (21:32)
[2021-08-23] MEDS: traZODone 100 MG Tablet PO (21:33)
[2021-08-23] MEDS: Ibuprofen 600 MG Tablet PO (21:33)
[2021-08-24] VITALS (9 sets, daily range): BP systolic 97–130; BP diastolic 63–77; PULSE 79–104; RESP 17–18; TEMP 36.6–37.1; O2SAT 96–98
[2021-08-24] MEDS: Methocarbamol 750 MG Tablet 1500 MG PO ×3 (03:11→16:28)
[2021-08-24] MEDS: Gabapentin 300 MG Capsule PO ×2 (03:11→14:29)
[2021-08-24] MEDS: Buprenorphine HCl 2 MG TAB.SUBL SL ×3 (03:12→18:54)
--- NOTE | 2021-08-24 06:49 | PCM.PN.HOSP ---
Subjective Subjective Patient overnight with no acute events per self and per nursing report. She notes withdrawal symptoms are significantly improving although she still does have tremors and fasciculations but states she did end up sleeping. She denies any GI symptoms. She notes that the right hip discomfort is mildly improved. Patient denies fevers, chills, nausea, emesis, abdominal pain, chest pain or dyspnea. Objective Data Objective Data Vital Signs: Vital Signs Temp Pulse Resp BP Pulse Ox 98.3 F 83 18 97/63 98 08/24/21 03:15 08/24/21 03:15 08/24/21 03:15 08/24/21 03:15 08/24/21 03:15 Oxygen Flow Rate (L/min) 3 Oxygen Delivery Method Nasal Cannula Weight: 173 lb Body Mass Index (BMI) 29.7 Intake & Output: Intake and Output for Last 24 Hours 08/22/21 08/23/21 08/24/21 23:59 23:59 23:59 Intake Total 1360 / 1360 Balance 1360 / 1360 Lab / Micro Data Result Diagrams: 08/23/21 16:10 08/23/21 16:10 Labs: Laboratory Results - last 24 hr 08/23/21 16:01: Urine Opiates Screen NEGATIVE, Urine Methadone Screen NEGATIVE, Ur Barbiturates Screen NEGATIVE, Ur Phencyclidine Scrn NEGATIVE, Ur Amphetamines Screen NEGATIVE, U Methamphetamin-MDMA NEGATIVE, U Benzodiazepines Scrn NEGATIVE, Urine Cocaine Screen NEGATIVE, U Cannabinoids Screen NEGATIVE, Ur Drug Screen Comment 08/23/21 16:10: WBC 11.0, RBC 5.37, Hgb 15.4 H, Hct 47.5 H, MCV 88.5, MCH 28.7, MCHC 32.4, RDW Std Deviation 43.3, RDW Coeff of Ricardo 13.3, Plt Count 468 H, MPV 9.2, Immature Gran % (Auto) 0.400, Neut % (Auto) 76.1 H, Lymph % (Auto) 14.3 L, Lane % (Auto) 8.3, Eos % (Auto) 0.4, Baso % (Auto) 0.5, Absolute Neuts (auto) 8.4 H, Absolute Lymphs (auto) 1.57, Nucleated RBC % 0 08/23/21 16:10: Sodium 132 L, Potassium 3.8, Chloride 97 L, Carbon Dioxide 26.0, Anion Gap 9, BUN 12, Creatinine 1.15 H, Estim Creat Clear Calc 40.43, Est GFR (MDRD) Af Amer 60, Est GFR (MDRD) Non-Af 50 L, BUN/Creatinine Ratio 10.4, Glucose 116 H, Calcium 9.8 08/23/21 16:10: Ethyl Alcohol < 3.0 08/23/21 16:10: Phosphorus 3.5, Magnesium 2.1 Physical Exam Narrative Physical Examination: General: awake, alert, oriented x 3 and cooperative, laying in the medical surgical bed, improved appearance. Skin: normal color, turgor, no icterus, cyanosis. HEENT: AT/NC, EOMI, PERRLA, improved however still mildly dry MM. Lungs: Diminished, greater bases, appropriate effort, no rales, ronchi or wheezing. Heart: Improved, regular with regular rhythm; no gallop, rub audible. Abdomen: soft, NTTP, nondistended, normalizing distant bowel sounds. Extremities: no cyanosis, clubbing, or edema. Neurological: patient awake, alert, oriented as noted; cognitive function intact; pupils equally reactive to light and accomodation; cranial nerves II-XII grossly normal, moving all 4 extremities, no focal deficits, strength improving, moderately global decrease secondary to acute presentation and complaints Psychiatric: affect appears less restless, more comfortable, no acute evidence of depressive or anxiety feelings. Assessment & Plan Assessment/Plan (1) Polysubstance abuse: PLAN: The patient is a 66 y/o F w/ PMHx: Chronic COPD, Severe OA with chronic R hip pain supposed to have upcoming RTHR per Dr. Cordova 09/19/21, HTN, HLD, Tobacco use, OAB, Polysubstance abuse (Reports no IVDA, takes any oral street narcotic she is able to get including tramadol, gabapentin, kratom, oxycodone/OxyContin and possibly even fentanyl but unclear) who presents to the [facility] ED on 08/23/21 w/ noted acute opiate withdrawal onset starting on day of presentation following last dose 2 days prior. #1. Acute Opiate Withdrawal: Admitted to [place], routine labs including CBC, CMP, urine for drug screen obtained in the ED and pending upon initial evaluation, initiated and continued on protocol with tapering course of Subutex, as needed tylenol, ibuprofen, bowel regimen, gabapentin, Bentyl, Vistaril, methocarbamol, clonidine, PRN nightly trazodone for insomnia, IV fluids, IV antiemetics. Case management consulted for discharge planning. Could benefit from a more structured outpatient plan, potentially residential facility. #2. Chronic COPD: Will maintain on oxygen with wean as tolerated to room air, hold home inhalers, transition in the interim to ATC duonebs, PRN albuterol, HOB, IS parameters. #3. Hypertension: Continue home regimen including lisinopril with adjustments as needed, notably elevated BP likely secondary to withdrawal upon ED presentation, PRN hydralazine. #4. Hyperlipidemia: We will continue home statin regimen. #5. Tobacco Abuse: Encouraged cessation, inpatient consultation per RT, NR if desired. #6. Severe OA: Patient with upcoming 09/19/2021 right total hip replacement per Dr. Cordova, complicates presentation given underlying history and discussed frankly with patient and her daughter that she is high risk for recurrent abuse with narcotic needs likely during this timeline. #7. DVT prophylaxis: Given significant underlying history will place on SCDs, Lovenox therapy. Charges/Coding Visit Charges Inpatient E&M: 11163 Subs Hosp L2
[2021-08-24] MEDS: Ipratropium/Albuterol Sulfate 3 ML AMPUL.NEB INHALATION ×3 (07:03→19:45)
[2021-08-24] MEDS: Dicyclomine 10 MG Capsule 20 MG PO (07:37)
[2021-08-24] MEDS: hydrOXYzine PAM 25 MG Capsule 50 MG PO ×3 (07:37→20:28)
[2021-08-24] MEDS: Ibuprofen 600 MG Tablet PO ×2 (07:37→20:27)
[2021-08-24] MEDS: Enoxaparin 40 MG/0.4 ML Syringe SC (09:18)
[2021-08-24] MEDS: Mirabegron 50 MG TAB.ER.24H PO (09:18)
[2021-08-24] MEDS: Lisinopril 20 MG Tablet PO (09:19)
[2021-08-24] MEDS: Atorvastatin Calcium 40 MG Tablet PO (20:27)
[2021-08-24] MEDS: traZODone 100 MG Tablet PO (20:27)
[2021-08-25] VITALS (10 sets, daily range): BP systolic 97–130; BP diastolic 59–88; PULSE 73–86; RESP 16–20; TEMP 36.5–37.9; O2SAT 93–99
[2021-08-25] MEDS: Gabapentin 300 MG Capsule PO ×2 (01:41→19:47)
[2021-08-25] MEDS: Methocarbamol 750 MG Tablet 1500 MG PO ×2 (01:41→19:48)
[2021-08-25] MEDS: Buprenorphine HCl 2 MG TAB.SUBL SL ×3 (03:09→18:39)
--- NOTE | 2021-08-25 06:38 | PCM.PN.HOSP ---
Subjective Subjective Patient with no acute events overnight per self and per nursing report. She is up at the bedside eating breakfast with no complaints. She notes the agitation and tremulousness she was having has significantly improved. Discussed again need for special circumstantial preparation for upcoming surgical intervention in August given risk for recurrent abuse following discharge to which she is understanding. Patient denies fevers, chills, nausea, emesis, abdominal pain, chest pain or dyspnea. Objective Data Objective Data Vital Signs: Vital Signs Temp Pulse Resp BP Pulse Ox 98.6 F 80 16 97/65 93 08/25/21 02:21 08/25/21 03:00 08/25/21 03:00 08/25/21 02:21 08/25/21 02:21 Oxygen Flow Rate (L/min) 3 Oxygen Delivery Method Nasal Cannula Weight: 173 lb 1.006 oz Body Mass Index (BMI) 29.7 Intake & Output: Intake and Output for Last 24 Hours 08/23/21 08/24/21 08/25/21 23:59 23:59 23:59 Intake Total 3360 / 3360 Balance 3360 / 3360 Lab / Micro Data Result Diagrams: 08/23/21 16:10 08/23/21 16:10 Physical Exam Narrative Physical Examination: General: awake, alert, oriented x 3 and cooperative, seated upright at the bedside, eating breakfast. Skin: normal color, turgor, no icterus, cyanosis. HEENT: AT/NC, EOMI, PERRLA, MMM. Lungs: Diminished, greater bases, appropriate effort, no rales, ronchi or wheezing. Heart: Regular with regular rhythm; no gallop, rub audible. Abdomen: soft, NTTP, ND, normalized distant bowel sounds. Extremities: no cyanosis, clubbing, or edema. Neurological: patient awake, alert, oriented as noted; cognitive function intact; pupils equally reactive to light and accomodation; cranial nerves II-XII grossly normal, moving all 4 extremities, no focal deficits, strength improving, mildly to moderately global decrease secondary to acute presentation and complaints. Psychiatric: affect appears calm, prior restlessness and agitation has subsided, no acute evidence of depressive or anxiety feelings. Assessment & Plan Assessment/Plan (1) Polysubstance abuse: PLAN: The patient is a 66 y/o F w/ PMHx: Chronic COPD, Severe OA with chronic R hip pain supposed to have upcoming RTHR per Dr. Cordova 09/19/21, HTN, HLD, Tobacco use, OAB, Polysubstance abuse (Reports no IVDA, takes any oral street narcotic she is able to get including tramadol, gabapentin, kratom, oxycodone/OxyContin and possibly even fentanyl but unclear) who presents to the [facility] ED on 08/23/21 w/ noted acute opiate withdrawal onset starting on day of presentation following last dose 2 days prior. #1. Acute Opiate Withdrawal: Admitted to [place], routine labs including CBC, CMP, urine for drug screen obtained in the ED, initiated and continued on protocol with tapering course of Subutex, as needed tylenol, ibuprofen, bowel regimen, gabapentin, Bentyl, Vistaril, methocarbamol, clonidine, PRN nightly trazodone for insomnia, IV fluids, IV antiemetics. Case management consulted for discharge planning. Could benefit from a more structured outpatient plan, potentially residential facility which was discussed with the patient at length. Patient does have upcoming surgery as noted and will need a good postoperative plan to assure recurrent abuse risk is less than. #2. Chronic COPD: Will maintain on oxygen with wean as tolerated to room air, hold home inhalers, transition in the interim to ATC duonebs, PRN albuterol, HOB, IS parameters. #3. Hypertension: Continue home regimen including lisinopril with adjustments as needed, notably elevated BP likely secondary to withdrawal upon ED presentation, PRN hydralazine. #4. Hyperlipidemia: We will continue home statin regimen. #5. Tobacco Abuse: Encouraged cessation, inpatient consultation per RT, NR if desired. #6. Severe OA: Patient with upcoming 09/19/2021 right total hip replacement per Dr. Cordova, complicates presentation given underlying history and discussed frankly with patient and her daughter that she is high risk for recurrent abuse with narcotic needs likely during this timeline. #7. DVT prophylaxis: SCDs, Lovenox therapy. Charges/Coding Visit Charges Inpatient E&M: 77404 Subs Hosp L2
--- NOTE | 2021-08-25 10:24 | ADDICTION ---
This commercial underwriter met with PT to conduct ASAM, MSE, AUDIT, DUDIT assessments and to plan for d/c. PT A+Ox4 and participated actively. All assessments completed, faxed to [facility] and placed in PT's chart. PT plans to f/u with residential services at [facility] and follow-up counseling services. PT will d/c to home and follow up with them once a bed opens up. PT did not indicate a need for transportation post d/c from [facility].
[2021-08-25] MEDS: Mirabegron 50 MG TAB.ER.24H PO (10:46)
[2021-08-25] MEDS: Enoxaparin 40 MG/0.4 ML Syringe SC (10:46)
[2021-08-25] MEDS: Lisinopril 20 MG Tablet PO (10:46)
--- NOTE | 2021-08-25 11:45 | ADDICTION ---
TT will need H&P sent home with her for her eventual admission to [facility].
[2021-08-25] MEDS: Ipratropium/Albuterol Sulfate 3 ML AMPUL.NEB INHALATION ×2 (12:33→19:15)
[2021-08-25] MEDS: hydrOXYzine PAM 25 MG Capsule 50 MG PO (15:42)
[2021-08-25] MEDS: Atorvastatin Calcium 40 MG Tablet PO (19:48)
[2021-08-25] MEDS: traZODone 100 MG Tablet PO (19:48)
[2021-08-25] MEDS: Acetaminophen 325 MG Tablet 650 MG PO (19:53)
[2021-08-26 02:40] VITALS: BP 114/76; PULSE 77; RESP 16; TEMP 37.1; O2SAT 98
[2021-08-26] MEDS: Methocarbamol 750 MG Tablet 1500 MG PO (06:21)
[2021-08-26] MEDS: hydrOXYzine PAM 25 MG Capsule 50 MG PO ×2 (06:21→13:09)
[2021-08-26] MEDS: Buprenorphine HCl 2 MG TAB.SUBL SL (06:21)
[2021-08-26] MEDS: Ibuprofen 600 MG Tablet PO (06:21)
--- NOTE | 2021-08-26 06:26 | DCINST_ITS ---
Discharge Instructions Diet Discharge Diet: Low fat / Low cholesterol Activity Discharge Activity: Return to Normal Activity and Use Walker Weight Bearing Status: Weight bearing as tolerated Dressing / Incision Call your doctor if you observe: Uncontrolled pain (Please contact Dr. Cordova office for early evaluation and establish with [facility].) Follow Up Care Test Results: Test results from this visit will be discussed in further detail at your follow-up appointment, if applicable. Discharge Plan Admission Admit Date/Time: 08/23/21 16:52 Primary Reason for Your Visit: Acute Opiate Withdrawal/Abuse Attending Provider: Varsha Tyson Primary Care Provider: NOT,DEFINED Instructions Patient Instructions: Hip Osteoarthritis, ED Drug Abuse, ED Opiate Abuse, ED Opioid Withdrawal Additional Instructions / Restrictions: DISCHARGE INSTRUCTIONS: -Please continue follow-up aggressively with 180 with plan currently to transition to residential [facility] once bed avilable. -Given your severe hip osteoarthritis with chronic pain with planned upcoming 09/19/[address] Cordova you have been discharged with short course of gabapentin, methocarbamol and trazodone to assist with pain control to help avoid recurrent illicit drug abuse. Discharge Orders/Prescriptions Prescriptions: New trazodone 100 mg Tablet 100 mg PO QHS PRN PRN (Reason: Insomnia) 30 Days Qty: 30 RF: 0 methocarbamol 750 mg Tablet 1,500 mg PO Q8H PRN (Reason: Muscle Spasm, pain) 7 Days Qty: 42 RF: 0 gabapentin 100 mg capsule 100 mg PO TID 21 Days Qty: 63 RF: 0 Continued atorvastatin 40 mg tablet 40 mg PO DAILY RF: 0 lisinopril 10 mg tablet 20 mg PO DAILY RF: 0 Myrbetriq 50 mg tablet extended release 24 hr 50 mg PO DAILY RF: 0 Breo Ellipta 100-25 mcg/dose blister with device 1 inh INHALATION DAILY RF: 0 Referrals / Follow Up: Dhruv Cordova MD [STAFF PHYSICIAN] - (Please follow-up in their office in 5-7 days for re-evaluation for potentially moving up OR date given pain.) NOT,DEFINED [Primary Care Provider] - (Please follow-up with [facility] as currently intended within 5-7 days to review admission and establish.) Disposition Disposition (needs filled in before D/C Order can be placed): Home, Self Care
[2021-08-26 09:00] VITALS: BP 112/73; PULSE 84; RESP 18; TEMP 36.9; O2SAT 94
--- NOTE | 2021-08-26 09:21 | NURSING ---
PT RESTING WITH EYES CLOSED, SNORING RESPIRATIONS
[2021-08-26] MEDS: Enoxaparin 40 MG/0.4 ML Syringe SC (11:21)
[2021-08-26] MEDS: Mirabegron 50 MG TAB.ER.24H PO (11:21)
[2021-08-26] MEDS: Lisinopril 20 MG Tablet PO (11:22)
[2021-08-26] MEDS: Acetaminophen 325 MG Tablet 650 MG PO (11:27)
[2021-08-26] MEDS: Gabapentin 300 MG Capsule PO (11:27)
[2021-08-26] MEDS: cloNIDine HCl 0.1 MG Tablet PO (11:27)
--- NOTE | 2021-08-26 11:30 | DS.PCM_ITS ---
Providers Date of Admission: 08/23/21 Primary Care Physician: NOT DEFINED Reason For Visit: ACUTE OPIATE WITHDRAW Diagnosis Discharge Diagnosis (1) Polysubstance abuse: Status: Acute Code(s): F19.10 - Other psychoactive substance abuse, uncomplicated Medications at Discharge Home Medications Breo Ellipta 1 inh INHALATION DAILY 07/27/21 Myrbetriq 50 mg PO DAILY 07/27/21 atorvastatin 40 mg PO DAILY 07/27/21 lisinopril 20 mg PO DAILY 07/27/21 gabapentin 100 mg PO TID 21 Days #63 cap 08/26/21 methocarbamol 1,500 mg PO Q8H PRN 7 Days #42 tab 08/26/21 trazodone 100 mg PO QHS PRN PRN 30 Days #30 tab 08/26/21 Hospital Course Operations None Procedures EKG Summary of Care Provided Minutes Spent on Discharge: 35 Hospital Course: DISCHARGE NOTE: Discharge Diagnoses: #1. Acute Opiate Withdrawal with Polysubstance abuse #2. Chronic COPD #3. Hypertension #4. Hyperlipidemia #5. Tobacco Abuse #6. Severe OA R Hip (upcoming 09/19/2021 right total hip replacement per Dr. Cordova) Discharge Summary: The patient is a 66 y/o F w/ PMHx: Chronic COPD, Severe OA with chronic R hip pain supposed to have upcoming RTHR per Dr. Cordova 09/19/21, HTN, HLD, Tobacco use, OAB, Polysubstance abuse (Reports no IVDA, takes any oral street narcotic she is able to get including tramadol, gabapentin, kratom, oxycodone/OxyContin and possibly even fentanyl but unclear) who presented to the [facility] ED on 08/23/21 w/ noted acute opiate withdrawal onset starting on day of presentation following last dose 2 days prior. Admitted to [place], routine labs including CBC, CMP, urine for drug screen obtained in the ED, initiated and continued on protocol with tapering course of Subutex, as needed tylenol, ibuprofen, bowel regimen, gabapentin, Bentyl, Vistaril, methocarbamol, clonidine, PRN nightly trazodone for insomnia, IV fluids, IV antiemetics. Case management consulted for discharge planning. Could benefit from a more structured outpatient plan, potentially residential facility which was discussed with the patient at length. Patient does have upcoming surgery as noted and will need a good postoperative plan to assure recurrent abuse risk is less than. Given significant severe osteoarthritis of the right hip did discharge patient on short course of methocarbamol, gabapentin lower dose 3 times daily as well as nightly trazodone to assist with sleep in order to attempt to defer recurrent illicit drug usage. Patient is currently on a waiting list for residential admission to [facility]. Did discussed her discharge with her and her daughter per her request prior to her facilitated discharge. Discharge Time: > 35 Minutes DAY OF DISCHARGE PROGRESS NOTE: Subjective: Patient without acute event overnight per self and nursing report. Patient notes withdrawal symptoms have significantly improved. She does still have some right hip discomfort but this is chronic although lessened with recent interventions. Patient denies fever, chills, nausea, emesis, abdominal pain, chest pain or dyspnea. Patient agreeable to discharge to her daughter's home. Patient will be discharged with follow-up with primary care physician within 3-5 days in addition to early follow-up with orthopedic surgery to potentially expedite surgical intervention timeline to decrease risk of recurrent illicit drug usage. Objective: T 98.8, heart rate 77, BP 114/76, respiratory rate 16, 98% on room air. Physical Examination: General: awake, alert, oriented x 3 and cooperative, laying in the bed, no acute distress, already ate breakfast. Skin: normal color, turgor, no icterus, cyanosis. HEENT: AT/NC, EOMI, PERRLA, MMM. Lungs: Diminished, greater bases, appropriate effort, no rales, ronchi or wheezing. Heart: Regular with regular rhythm; no gallop, rub audible. Abdomen: soft, NTTP, ND, normalized distant bowel sounds. Extremities: no cyanosis, clubbing, or edema. Neurological: patient awake, alert, oriented as noted; cognitive function intact; pupils equally reactive to light and accomodation; cranial nerves II-XII grossly normal, moving all 4 extremities, no focal deficits, strength improving, mildly globally decreased primarily secondary to chronic right OA. Psychiatric: affect appears calm, prior restlessness and agitation has completely resolved, no acute evidence of depressive or anxiety feelings. Assessment and Plan: Please see hospital summary above. Weight / BMI Weight Weight: 173 lb 1.006 oz Body Mass Index (BMI) 29.7 ABG / Lab / Microbiology Data Result Diagrams: 08/23/21 16:10 08/23/21 16:10 D/C Instructions Discharge Diet: Low fat / Low cholesterol Weight Bearing Status: Weight bearing as tolerated Call your doctor if you observe: Uncontrolled pain (Please contact Dr. Cordova office for early evaluation and establish with [facility].) Meaningful Use Info Meaningful Use Diagnoses (Choose all that apply): None applicable Discharge Plan Admission Admit Date/Time: 08/23/21 16:52 Primary Reason for Your Visit: Acute Opiate Withdrawal/Abuse Attending Provider: Varsha Tyson Primary Care Provider: NOT,DEFINED Instructions Patient Instructions: Hip Osteoarthritis, ED Drug Abuse, ED Opiate Abuse, ED Opioid Withdrawal Additional Instructions / Restrictions: DISCHARGE INSTRUCTIONS: -Please continue follow-up aggressively with 180 with plan currently to transition to residential [facility] once bed avilable. -Given your severe hip osteoarthritis with chronic pain with planned upcoming 09/19/[address] Cordova you have been discharged with short course of gabapentin, methocarbamol and trazodone to assist with pain control to help avoid recurrent illicit drug abuse. Discharge Orders/Prescriptions Prescriptions: New trazodone 100 mg Tablet 100 mg PO QHS PRN PRN (Reason: Insomnia) 30 Days Qty: 30 RF: 0 methocarbamol 750 mg Tablet 1,500 mg PO Q8H PRN (Reason: Muscle Spasm, pain) 7 Days Qty: 42 RF: 0 gabapentin 100 mg capsule 100 mg PO TID 21 Days Qty: 63 RF: 0 Continued atorvastatin 40 mg tablet 40 mg PO DAILY RF: 0 lisinopril 10 mg tablet 20 mg PO DAILY RF: 0 Myrbetriq 50 mg tablet extended release 24 hr 50 mg PO DAILY RF: 0 Breo Ellipta 100-25 mcg/dose blister with device 1 inh INHALATION DAILY RF: 0 Referrals / Follow Up: Dhruv Cordova MD [STAFF PHYSICIAN] - (Please follow-up in their office in 5-7 days for re-evaluation for potentially moving up OR date given pain.) NOT,DEFINED [Primary Care Provider] - (Please follow-up with [facility] as currently intended within 5-7 days to review admission and establish.) Disposition Disposition (needs filled in before D/C Order can be placed): Home, Self Care Charges/Coding Visit Charges Inpatient E&M: 09895 Disch Hosp
[2021-08-26 13:26] VITALS: PULSE 88; RESP 20
[2021-08-26] MEDS: Ipratropium/Albuterol Sulfate 3 ML AMPUL.NEB INHALATION (13:26)
== END 2021-08-26 13:53 | disposition home or self-care (01) | DRG 897 ==
LOC: ED 15:54 → MS3 17:17
PROVIDERS: Admitting Provider Family Medicine; Emergency Provider Student in an Organized Health Care Education/Training Program; Visit Provider Family Medicine
DX: F11.23 Opioid dependence with withdrawal (principal); J44.9 Chronic obstructive pulmonary disease, unspecified; I10 Essential (primary) hypertension; E78.5 Hyperlipidemia, unspecified; M16.11 Unilateral primary osteoarthritis, right hip; F17.210 Nicotine dependence, cigarettes, uncomplicated; F15.10 Other stimulant abuse, uncomplicated; F13.10 Sedative, hypnotic or anxiolytic abuse, uncomplicated; F12.10 Cannabis abuse, uncomplicated; F14.10 Cocaine abuse, uncomplicated; G89.29 Other chronic pain; N32.81 Overactive bladder; Z79.899 Other long term (current) drug therapy; Z79.51 Long term (current) use of inhaled steroids
CPT/HCPCS: 80048; 80307; 82077; 83735; 84100; 85025; 94640; 97802; 99282; 99406; J7120; A4216

== ENCOUNTER → 2021-09-04 12:08 | Outpatient (CLI) | payer MEDICARE, SELFPAY ==
[2021-09-04 15:06] LABS: Absolute Lymphocyte Count 1.34 X10^3/uL (0.83-4.51); Absolute Neutrophil Count 6.8 X10^3/uL (2.0-7.7); Basophil# 0.04 X10^3/uL; Basophil% 0.4 % (0-1); Eosinophil# 0.08 X10^3/uL; Eosinophils% 0.9 % (0-5); Hematocrit 42.5 % (37-47); Hemoglobin 13.7 g/dL (12.0-15.0); Lymphocyte # 1.34 X10^3/ul (0.83-4.51); Lymphocyte % 14.9 % (19-41); Mean Corp Hgb Conc 32.2 g/dL (32-36); Mean Corpuscular Hgb 29.2 pg (27.0-32.0); Mean Corpuscular Volume 90.6 fL (81-99); Monocyte# 0.72 X10^3/uL; NRBC Flagged by Analyzer 0 % (0-5); Neutrophil # 6.77 X10^3/uL (2.7-7.7); Neutrophil % 75.5 % (47-70); Platelet Count 436 K/mm3 (150-450); RBC Distribution Width CV 13.6 % (11.6-14.6); RBC Distribution Width SD 44.9 fl (35.1-43.9); Red Blood Count 4.69 M/mm3 (4.2-5.4)
[2021-09-04 15:52] LABS: ALB/GLOB Ratio 0.9 RATIO (0.9-2.4); AST(SGOT) 14 U/L (15-37); Alanine Aminotransfer ALT/SGPT 27 U/L (13-56); Albumin, Serum 3.5 g/dL (3.2-5.0); Alkaline Phosphatase 116 U/L (45-117); Anion Gap 7 (5-15); BUN 12 mg/dL (7-18); Calcium,Total 9.1 mg/dL (8.5-10.1); Chloride 101 mmol/L (98-107); Cholesterol 210 mg/dL (200); Creatinine, Serum 0.93 mg/dL (0.55-1.02); EST Glomerular Filtration Rate 64 mL/min (>60); Est Glom Filt Rate - Afr Amer 78 mL/min (>60); Globulin 4.1 g/dL (2.2-4.2); Glucose 102 mg/dL (74-106); High Density Lipoprotein 57 mg/dL; Potassium 4.1 mmol/L (3.5-5.1); Protein, Total 7.6 g/dL (6.4-8.2); Sodium Level 136 mmol/L (136-145); Thyroid Stim Hormone (TSH) 0.98 uIU/mL (0.358-3.74); Triglycerides 96 mg/dL; Very Low Density Lipoprotein 19 mg/dL (5-40)
[2021-09-05 10:47] LABS: Hemoglobin A1c 5.7 % (3.8-5.6)
== END ==
LOC: MFPLAB 12:13
PROVIDERS: PCP Family Medicine; Referring Provider Family Medicine; Visit Provider Family Medicine
DX: I10 Essential (primary) hypertension (principal); R73.09 Other abnormal glucose
CPT/HCPCS: 36415; 80053; 80061; 83036; 83735; 84443; 85025

== ENCOUNTER → 2022-09-07 | Outpatient (CLI) | payer MEDICARE, SELFPAY ==
--- NOTE | 2022-09-07 11:59 | RAD_ITS ---
INDICATION: PNEMONIA EXAMINATION/TECHNIQUE: X-RAY - XR Chest 2 Views COMPARISON: July 27, 2021 FINDINGS: LINES/DEVICES: None. LUNGS: No consolidation, edema or effusion. No pneumothorax. MEDIASTINUM AND CARDIOVASCULAR STRUCTURES: Cardiac silhouette not enlarged. Central airways and mediastinal contour are unremarkable. BONES AND SOFT TISSUES: Dorsal spine and shoulders demonstrate degenerative change Moderate sized hiatal hernia is noted. No significant change since prior study RAD/Chest PA and Lateral IMPRESSION: No radiographic evidence of acute cardiopulmonary disease. Electronically Signed: Edmond Morton MD at 20:08 EST ,
== END | disposition home or self-care (01) ==
PROVIDERS: PCP Family Medicine; Referring Provider Family Medicine; Visit Provider Family Medicine
DX: J18.9 Pneumonia, unspecified organism (principal)
CPT/HCPCS: 71046

== ENCOUNTER → 2022-10-02 | Outpatient (CLI) | payer MEDICARE, SELFPAY ==
--- NOTE | 2022-10-02 17:14 | RAD_ITS ---
INDICATION: COPD EXAMINATION/TECHNIQUE: X-RAY - XR Chest 2 Views COMPARISON: 09/07/2022 FINDINGS: LIFE-SUPPORT AND LINES: 1. None HEART AND VESSELS: The cardiac silhouette, pulmonary vasculature have normal appearance. No evidence of congestive failure. LUNGS AND PLEURAL SPACES: Lungs are clear. No focal infiltrate, consolidation or effusions. No evidence of pneumothorax. Minimal atelectasis at the lung bases greater on the LEFT than RIGHT. MEDIASTINUM AND HILAR REGIONS: No masses adenopathy noted. No areas of calcification. Visualized upper airway is normal in position. BONY ELEMENTS: Diffuse thoracic spondylosis, marginal osteophytes are noted. Findings are stable RAD/Chest PA and Lateral IMPRESSION: 1. No evidence of acute cardiopulmonary process 2. Minimal basilar atelectasis. Electronically Signed: Sesar Sims MD at 17:56 EST ,
== END | disposition home or self-care (01) ==
LOC: MTRAD 17:13
PROVIDERS: PCP Family Medicine; Referring Provider Family Medicine; Visit Provider Family Medicine
DX: J44.9 Chronic obstructive pulmonary disease, unspecified (principal)
CPT/HCPCS: 71046

== ENCOUNTER → 2022-10-03 | Outpatient (CLI) | payer MEDICARE, SELFPAY ==
[2022-10-03 11:43] LABS: Bacteria 0 SEEN /hpf (None Seen); Mucous, Urine 0 SEEN /hpf (<or=2+); Red Blood Cells-Urine 0 SEEN /hpf (0-5); White Blood Cells 0 SEEN /hpf (0-5)
[2022-10-03 15:23] LABS: Absolute Lymphocyte Count 1.73 X10^3/uL (0.83-4.51); Absolute Neutrophil Count 9.4 X10^3/uL (2.0-7.7); Basophil# 0.05 X10^3/uL; Basophil% 0.4 % (0-1); Eosinophil# 0.05 X10^3/uL; Eosinophils% 0.4 % (0-5); Hematocrit 44.3 % (37-47); Hemoglobin 14.3 g/dL (12.0-15.0); Lymphocyte # 1.73 X10^3/ul (0.83-4.51); Lymphocyte % 14.3 % (19-41); Mean Corp Hgb Conc 32.3 g/dL (32-36); Mean Corpuscular Hgb 30.9 pg (27.0-32.0); Mean Corpuscular Volume 95.7 fL (81-99); Mean Platelet Vol. 10.6 fl (6.2-12.0); Monocyte# 0.83 X10^3/uL; Monocyte% 6.8 % (0-10); NRBC Flagged by Analyzer 0 % (0-5); Neutrophil # 9.43 X10^3/uL (2.7-7.7); Neutrophil % 77.9 % (47-70); Platelet Count 378 K/mm3 (150-450); RBC Distribution Width CV 15.1 % (11.6-14.6); RBC Distribution Width SD 53.5 fl (35.1-43.9); Red Blood Count 4.63 M/mm3 (4.2-5.4); White Blood Count 12.1 K/mm3 (4.4-11.0)
[2022-10-03 15:28] LABS: Color, Urine Yellow (Yellow); Glucose, Dipstick Normal (Normal); Ketone-Dipstick Negative (Negative); Leukocyte Esterase-Dipstick 25 /ul (Negative); Nitrite-Dipstick Negative (Negative); Occult Blood-Urine Negative /ul (Negative); Protein-Dipstick 100 mg/dl (Negative); Specific Gravity, Urine 1.015 (1.002-1.030); Urine Bilirubin Dipstick Negative (Negative); Urine Clarity Clear (Clear); Urine Urobilinogen Normal (Normal)
[2022-10-03 15:52] LABS: ALB/GLOB Ratio 1.1 RATIO (0.9-2.4); AST(SGOT) 13 U/L (15-37); Alanine Aminotransfer ALT/SGPT 23 U/L (13-56); Albumin, Serum 3.5 g/dL (3.2-5.0); Alkaline Phosphatase 109 U/L (45-117); Anion Gap 7 (5-15); BUN 19 mg/dL (7-18); BUN/Creat Ratio 18.3 RATIO (10-20); Calcium,Total 9.3 mg/dL (8.5-10.1); Chloride 105 mmol/L (98-107); Cholesterol 260 mg/dL (200); Creatinine, Serum 1.04 mg/dL (0.55-1.02); EST Glomerular Filtration Rate 56 mL/min (>60); Est Glom Filt Rate - Afr Amer 68 mL/min (>60); Globulin 3.2 g/dL (2.2-4.2); Glucose 95 mg/dL (74-106); High Density Lipoprotein 79 mg/dL; Potassium 4.7 mmol/L (3.5-5.1); Protein, Total 6.7 g/dL (6.4-8.2); Sodium Level 138 mmol/L (136-145); Thyroid Stim Hormone (TSH) 1.23 uIU/mL (0.358-3.74); Triglycerides 233 mg/dL; Very Low Density Lipoprotein 47 mg/dL (5-40)
[2022-10-03 16:01] LABS: Squamous Epithelial Cells - UA 0-5 SEEN /hpf (5-10)
[2022-10-03 16:10] LABS: Hemoglobin A1c 5.6 % (3.8-5.6)
== END | disposition home or self-care (01) ==
PROVIDERS: PCP Family Medicine; Referring Provider Family Medicine; Visit Provider Family Medicine
DX: I10 Essential (primary) hypertension (principal); R73.02 Impaired glucose tolerance (oral)
CPT/HCPCS: 36415; 80053; 80061; 81001; 83036; 84443; 85025

== ENCOUNTER → 2022-10-10 | Outpatient (CLI) | payer MEDICARE, SELFPAY ==
--- NOTE | 2022-10-10 16:59 | CT_ITS ---
INDICATION: LUNG NODULE EXAMINATION: CT CHEST WITHOUT CONTRAST - CT Chest W/O Contrast Injection TECHNIQUE: Helically acquired images were obtained of the chest. A radiation dose optimization technique was used for this scan. IV Contrast dosage and agent: None. COMPARISON: None. FINDINGS: LUNGS, PLEURA AND LARGE AIRWAYS: 2 mm subpleural nodule right lower lobe laterally. No infiltrate, consolidation or pleural effusion. No pulmonary mass lesions. No pneumothorax. THYROID: No thyroid lesions. HEART AND PERICARDIUM: Heart size is normal. No pericardial effusion. Coronary artery calcifications. VESSELS: 3.9 cm ectasia ascending thoracic aorta. MEDIASTINUM AND ERUM: No mediastinal or hilar adenopathy. Esophagus is unremarkable. No hiatal hernia. UPPER ABDOMEN: No acute pathology. BONES: No acute or aggressive abnormality. CT/Chest without Contrast IMPRESSION: No acute pulmonary findings. 2 mm right lower lobe nodule. Per Fleischner Society guidelines, no follow-up indicated unless patient at high risk for malignancy where a one-year follow-up chest CT should be considered. Electronically Signed: Dallas Ramirez MD at 20:02 EST ,
== END | disposition home or self-care (01) ==
LOC: CT 16:56
PROVIDERS: PCP Family Medicine; Referring Provider Family Medicine; Visit Provider Family Medicine
DX: R91.1 Solitary pulmonary nodule (principal); R16.0 Hepatomegaly, not elsewhere classified
CPT/HCPCS: 71250

== ENCOUNTER → 2022-11-07 | Outpatient (CLI) | payer MEDICARE, SELFPAY ==
--- NOTE | 2022-11-07 18:10 | MRI_ITS ---
STUDY: MRI ABDOMEN WITH AND WITHOUT CONTRAST REASON FOR EXAM: Female, 67 years old. LIVER MASS, FU TO CT CHEST 10/08/21 TECHNIQUE: Standardized fat and water weighted pulse sequences were obtained in all 3 orthogonal planes post contrast administration. 15 ML IV CLARISCAN was administered for the contrast portion of the examination. COMPARISON: Chest CT 10/10/2022 FINDINGS: Base of the chest is unremarkable, limited on MRI. There are T2 bright nonenhancing cysts of the liver with the largest single cyst in the left hepatic lobe measuring 1.1 cm. No required imaging follow-up needed given high likelihood of benign nature. Contracted gallbladder but unremarkable extrahepatic biliary system. Normal spleen. Normal pancreas. Normal bilateral adrenal glands. Normal right kidney. Normal left kidney. Hollow viscus structures are unremarkable except for a very small hiatal hernia. Normal abdominal aorta. Normal inferior vena cava. Normal retroperitoneum. Normal abdominal wall. No bone marrow edema. MRI/MRI Abd WITH and W/O Contrast IMPRESSION: 1. No suspicious hepatic masses. Electronically Signed: Robin Augustin (Brooks), at 10:33 EST ,
== END | disposition home or self-care (01) ==
LOC: MRI 17:34
PROVIDERS: PCP Family Medicine; Visit Provider Family Medicine
DX: R91.1 Solitary pulmonary nodule (principal); R16.0 Hepatomegaly, not elsewhere classified
CPT/HCPCS: 74183; A9575; A4216

== ENCOUNTER 2022-12-09 12:07 | Inpatient (IN) | payer MEDICARE, SELFPAY ==
[2022-12-09] VITALS (21 sets, daily range): BP systolic 110–151; BP diastolic 59–107; PULSE 84–101; RESP 15–25; TEMP 36.4–37.3; O2SAT 87–97; BMI 31.1; BMI 31.2
--- NOTE | 2022-12-09 12:39 | RAD_ITS ---
EXAM: XR CHEST, 1 VIEW CLINICAL INDICATION: SOB, COPD Hx TECHNIQUE: Frontal view of the chest. This report was created using [employer] report generation technology. COMPARISON: 10/02/2022. FINDINGS: LUNGS AND PLEURAL SPACES: Unremarkable. No consolidation or edema. No pneumothorax. No effusion. HEART: Unremarkable. Cardiac silhouette not enlarged. MEDIASTINUM: Central airways and mediastinal contour are unremarkable. BONES/JOINTS: Unremarkable. SOFT TISSUES: Unremarkable. RAD/Chest 1 View (Portable) IMPRESSION: No acute cardiopulmonary abnormality. Electronically Signed: Chad Lara MD at 13:38 EDT ,
--- NOTE | 2022-12-09 12:41 | ED.VIS.DYS ---
HPI History of Present Illness Chief Complaint: Shortness of Breath Narrative Narrative: Patient presents with about 3 days of worsening breathing. She has COPD. She is still smoking and was counseled to quit. She has been having a lot more wheezing despite using her nebulizer. She has oxygen at home but only for nighttime use. Last steroids was about a month and a half ago. Last admission was back in July. She denies chest pain. She is coughing but not really bringing up sputum. No notable fevers. She has had some myalgias rhinorrhea and generalized malaise. She has had some mild nausea that is worsened with a cough. Multiple family members have all been having this but because of her COPD she has been getting more sick. She states her breathing treatments are just not working. No history of DVT or PE. No leg pain or swelling. No recent travel. No hemoptysis. [facility] Medical History Arthritis COPD (chronic obstructive pulmonary disease) High cholesterol HTN (hypertension) Hypercholesterolemia Overactive bladder Polysubstance abuse Home Medications atorvastatin 40 mg tablet 40 mg PO DAILY 07/27/21 [History Last Taken Unknown] fluticasone furoate 100 mcg-vilanterol 25 mcg/dose inhalation powder (Breo Ellipta) 1 inh inhalation DAILY 07/27/21 [History Last Taken Unknown] lisinopril 10 mg tablet 20 mg PO DAILY 07/27/21 [History Last Taken Unknown] mirabegron 50 mg tablet,extended release 24 hr (Myrbetriq) 50 mg PO DAILY 07/27/21 [History Last Taken Unknown] gabapentin 100 mg capsule 100 mg PO TID 21 days #63 caps 08/26/21 [Rx Last Taken Unknown] methocarbamol 750 mg tablet 1,500 mg PO Q8H PRN Muscle Spasm, pain 7 days #42 tabs 08/26/21 [Rx Last Taken Unknown] trazodone 100 mg tablet 100 mg PO QHS PRN PRN Insomnia 30 days #30 tabs 08/26/21 [Rx Last Taken Unknown] Allergy/AdvReac Type Severity Reaction Status Date / Time No Known Allergies Allergy Verified 07/27/21 04:48 Family History Father CAD (coronary artery disease) Heart disease CVA (cerebral vascular accident) Mother Colon cancer Surgical History H/O: hysterectomy History of carpal tunnel surgery History of mandibular surgery Social History Smoking Status: Current every day smoker tobacco type: cigarettes Tobacco: How many years used: 50 alcohol intake: former substance use type: marijuana, crack/cocaine, heroin, amphetamines, sedatives, opiates, painkillers, methamphetamine and prescription drug ROS ROS ED Constitutional Constitutional ED: Denies chills or fever(s) Eyes Eyes: Denies change in vision ENT ENT ED: Reports rhinorrhea; Denies sore throat Cardiovascular Cardiovascular: Denies chest pain, palpitations or racing heartbeat Respiratory/Chest Respiratory/Chest: Reports cough and dyspnea; Denies sputum Gastrointestinal Gastrointestinal: Reports nausea and other Details: Mild nausea but no vomiting. More nauseated if she coughs a lot. ; Denies abdominal pain or vomiting Genitourinary Genitourinary ED: Denies dysuria Musculoskeletal Musculoskeletal: Reports myalgias Integumentary Denies rash Neurologic Neurologic: Denies headache(s) Psychiatric Psychiatric: Reports anxiety Endocrine Endocrinology: Denies polydipsia or polyuria Hematologic/Lymphatic Hematologic/Lymphatic: Denies easy bleeding or easy bruising Allergic/Immunologic Allergic/Immunologic ED: Denies urticaria EXAM Physical Exam Narrative Exam Narrative: Patient awake alert. No acute distress. She does have a harsh cough. She has audible wheezing as I walk in the room. But she is not toxic. She is awake alert not at all lethargic. HEENT shows moist mucous membranes Eyes show no icterus I do not see signs of JVD on her neck Lungs have coarse wheezing throughout. It is really hard to hear anything else. Air motion is also very poor. I do not feel any subcutaneous air. Heart is regular. Rate is about 90-95. I hear no murmur but really cannot hear much over her breathing. Abdomen is nontender. Extremities show no asymmetry edema or tenderness Neurologically she is awake alert and fully appropriate. Not at all lethargic. No indication of CO2 retention. Const Vital Signs: 12/09/22 12:08 12/09/22 12:10 12/09/22 12:53 Temperature 97.6 F L 97.6 F L 98.4 F Temperature Source Temporal Temporal Temporal Pulse Rate 91 91 93 Respiratory Rate 18 18 24 H Respiratory Effort Respiratory Depth Respiratory Pattern Blood Pressure 139/94 H 139/94 H 151/96 H Blood Pressure Mean 109 109 114 Pulse Ox 94 91 96 Oxygen Delivery Method Room Air Room Air Room Air Oxygen Flow Rate (L/min) 12/09/22 12:48 12/09/22 13:02 12/09/22 13:07 Temperature 97.8 F Temperature Source Temporal Pulse Rate 95 95 Respiratory Rate 24 H 20 H Respiratory Effort Short of Breath Labored Respiratory Depth Normal Respiratory Pattern Tachypnea Tachypnea Blood Pressure 136/84 H Blood Pressure Mean 101 Pulse Ox 95 Oxygen Delivery Method Room Air Room Air Oxygen Flow Rate (L/min) 12/09/22 14:09 12/09/22 14:09 12/09/22 15:04 Temperature 98.1 F Temperature Source Oral Pulse Rate 97 101 H 92 Respiratory Rate 25 H 15 18 Respiratory Effort Respiratory Depth Respiratory Pattern Blood Pressure 124/59 H 124/59 H 149/82 H Blood Pressure Mean 80 80 104 Pulse Ox 93 94 93 Oxygen Delivery Method Room Air Room Air Room Air Oxygen Flow Rate (L/min) 12/09/22 15:06 12/09/22 15:58 12/09/22 15:58 Temperature 98.4 F Temperature Source Oral Pulse Rate 96 Respiratory Rate 22 H Respiratory Effort Respiratory Depth Respiratory Pattern Blood Pressure 134/107 H Blood Pressure Mean 116 Pulse Ox 92 87 91 Oxygen Delivery Method Room Air Room Air Nasal Cannula Oxygen Flow Rate (L/min) 2 MDM MDM MDM Narrative Medical decision making narrative: Patient CBC shows normal white count hemoglobin and platelets. Electrolytes show no marked abnormalities. Glucose was minimally up at 133. My independent interpretation of the patient's single AP chest x-ray shows slightly poor inspiration but no acute infiltrate. No mediastinal or cardiac enlargement on this film. Final read reading by radiology as no acute cardiopulmonary abnormality. Patient was rechecked. She was moving a little bit more air but was still wheezing quite a bit. Have given her another treatment. Her saturations are just about 91% on 2 L. We got her up to walk her and she only had 89% but she really stopped due to significant dyspnea and she did not get far at all. I am sure she would have desaturated more had we been able to walk her more. At this point I think this is COPD exacerbation will quite possibly from a viral illness. COVID and influenza are negative. However, she has multiple family members who have had upper respiratory symptoms like hers. She caught it and it started similarly but has worsened likely due to her history of COPD. She has no hemoptysis. No chest pain. No pleuritic pain. No leg swelling. No history of DVT or PE. Lab Data Labs: Laboratory Results - last 24 hr 12/09/22 12/09/22 12:24 12:24 WBC 8.4 RBC 4.68 Hgb 13.8 Hct 45.6 MCV 97.4 MCH 29.5 MCHC 30.3 L RDW Std Deviation 53.9 H RDW Coeff of Ricardo 15.1 H Plt Count 331 MPV 9.9 Immature Gran % (Auto) 0.600 Neut % (Auto) 82.2 H Lymph % (Auto) 9.2 L [place] % (Auto) 7.5 Eos % (Auto) 0.0 Baso % (Auto) 0.5 Absolute Neuts (auto) 6.9 Absolute Lymphs (auto) 0.77 L Nucleated RBC % 0 Sodium 136 Potassium 4.2 Chloride 101 Carbon Dioxide 25.0 Anion Gap 10 BUN 14 Creatinine 0.90 Estim Creat Clear Calc 50.94 Est GFR (MDRD) Af Amer 80 Est GFR (MDRD) Non-Af 66 BUN/Creatinine Ratio 15.6 Glucose 133 H Calcium 9.0 Radiography Diagnostic Testing: Clinical Impression(s) from Imaging Studies Chest X-Ray 12/09/22 12:39 IMPRESSION: No acute cardiopulmonary abnormality. Electronically Signed: Chad Lara MD at 13:38 EDT , EKG Initial EKG: Comments: My independent interpretation of patient's EKG shows sinus rhythm with frequent PACs. My initial impression was this could be atrial fibrillation but at a closer look I do see P waves with PACs and compensatory pauses. Overall rate is 101. No acute ST elevation or depression. [place] interval, QRS duration and QTc are normal. Discharge Plan Triage Chief Complaint: Shortness of Breath ED Provider: Kirk Garg Dx/Rx/DC Orders Clinical Impression: COPD exacerbation, Hypoxia, Tobacco abuse, PAC (premature atrial contraction) Prescriptions: No Action atorvastatin 40 mg tablet 40 mg PO DAILY lisinopril 10 mg tablet 20 mg PO DAILY Myrbetriq 50 mg tablet extended release 24 hr 50 mg PO DAILY Breo Ellipta 100-25 mcg/dose blister with device 1 inh INHALATION DAILY trazodone 100 mg Tablet 100 mg PO QHS PRN PRN (Reason: Insomnia) 30 Days Qty: 30 0RF methocarbamol 750 mg Tablet 1,500 mg PO Q8H PRN (Reason: Muscle Spasm, pain) 7 Days Qty: 42 0RF gabapentin 100 mg capsule 100 mg PO TID 21 Days Qty: 63 0RF Primary Care Provider: Pavan Vaughn Referrals: Pavan Vaughn MD [Primary Care Provider] - Disposition Disposition: Acute Care Hospital [facility]
[2022-12-09] MEDS: Ipratropium/Albuterol Sulfate 3 ML AMPUL.NEB INHALATION ×3 (12:48→23:46)
[2022-12-09] MEDS: Albuterol 2.5 MG/3 ML VIAL.NEB. INHALATION ×2 (12:48→16:44)
[2022-12-09 12:54] LABS: Absolute Lymphocyte Count 0.77 X10^3/uL (0.83-4.51); Absolute Neutrophil Count 6.9 X10^3/uL (2.0-7.7); Basophil# 0.04 X10^3/uL; Basophil% 0.5 % (0-1); Hematocrit 45.6 % (37-47); Hemoglobin 13.8 g/dL (12.0-15.0); Lymphocyte # 0.77 X10^3/ul (0.83-4.51); Lymphocyte % 9.2 % (19-41); Mean Corp Hgb Conc 30.3 g/dL (32-36); Mean Corpuscular Hgb 29.5 pg (27.0-32.0); Mean Corpuscular Volume 97.4 fL (81-99); Mean Platelet Vol. 9.9 fl (6.2-12.0); Monocyte# 0.63 X10^3/uL; Monocyte% 7.5 % (0-10); NRBC Flagged by Analyzer 0 % (0-5); Neutrophil # 6.92 X10^3/uL (2.7-7.7); Neutrophil % 82.2 % (47-70); Platelet Count 331 K/mm3 (150-450); RBC Distribution Width CV 15.1 % (11.6-14.6); RBC Distribution Width SD 53.9 fl (35.1-43.9); Red Blood Count 4.68 M/mm3 (4.2-5.4); White Blood Count 8.4 K/mm3 (4.4-11.0)
[2022-12-09 13:02] LABS: Anion Gap 10 (5-15); BUN 14 mg/dL (7-18); BUN/Creat Ratio 15.6 RATIO (10-20); Chloride 101 mmol/L (98-107); EST Glomerular Filtration Rate 66 mL/min (>60); Est Glom Filt Rate - Afr Amer 80 mL/min (>60); Estimated Creatinine Clearance 50.94 ml/min; Glucose 133 mg/dL (74-106); Potassium 4.2 mmol/L (3.5-5.1); Sodium Level 136 mmol/L (136-145)
[2022-12-09] MEDS: Acetaminophen 325 MG Tablet 650 MG PO ×2 (13:03→20:04)
[2022-12-09] MEDS: MethylPREDNISolone 125 MG/2 ML Vial IV (13:03)
[2022-12-09] MEDS: Ondansetron 4 MG/2 ML Vial IV (15:58)
--- NOTE | 2022-12-09 16:15 | ED.RN ---
THIS RN CALLED RESPIRATORY AT 1615 TO NOTIFY THEM ABOUT BREATHING TREATMENT.
--- NOTE | 2022-12-09 16:38 | HP.PCM.HOS_ITS ---
HPI - General General Date of Admission: 12/09/22 Date of Service: 12/09/22 Chief Complaint: SOB HPI Narrative EVA MONTAÑO, is a 67 F with a history of COPD, tobacco use, substance use who presented to [facility] 12/09 with general malaise, increased shortness of breath, increased cough with production, sinus drainage, multiple sick contacts and she is not been getting better. Also feels slightly bloated and nauseous. In ED blood pressure 124/59 with a heart rate of 97, respiratory rate initially 25 and she was 93% on room air, WBC 8.4, hemoglobin 13.8, platelets 331, BMP overall unremarkable aside from glucose of 133. Chest x-ray no acute abnormality. She is given DuoNebs, methylprednisone but with minimal movement she decreased to 88% SPO2 on room air and is still having significant generalized weakness and shortness of breath so hospitalist consulted for admission. Patient evaluated bedside and reports continued shortness of breath and cough even with the Solu-Medrol and DuoNebs but does feel better than she did, overall has Quincy's. Unsure if she has had fever but does note the productive cough, sinus drainage, nausea. FORMERLY [facility], [facility] Medical History Arthritis COPD (chronic obstructive pulmonary disease) High cholesterol HTN (hypertension) Hypercholesterolemia Overactive bladder Polysubstance abuse Home Medications atorvastatin 40 mg tablet 40 mg PO DAILY Check with primary doctor 07/27/21 [History Last Taken Unknown] fluticasone furoate 100 mcg-vilanterol 25 mcg/dose inhalation powder (Breo Ellipta) 1 inh inhalation DAILY PRN Shortness Of Breath 07/27/21 [History Last Taken Unknown] lisinopril 10 mg tablet 20 mg PO DAILY Check with primary doctor 07/27/21 [History Last Taken Unknown] bupropion HCl 150 mg tablet,12 hr sustained-release 150 mg PO DAILY Check with primary doctor 12/09/22 [History Last Taken Unknown] gabapentin 600 mg tablet 300 mg PO TID Check with primary doctor 12/09/22 [History Last Taken Unknown] terbinafine HCl 250 mg tablet 250 mg PO DAILY Check with primary doctor 12/09/22 [History Last Taken Unknown] Allergy/AdvReac Type Severity Reaction Status Date / Time No Known Allergies Allergy Verified 07/27/21 04:48 Family History Father CAD (coronary artery disease) Heart disease CVA (cerebral vascular accident) Mother Colon cancer Surgical History H/O: hysterectomy History of carpal tunnel surgery History of mandibular surgery Social History Smoking Status: Current every day smoker tobacco type: cigarettes Tobacco: How many years used: 50 alcohol intake: former substance use type: marijuana, crack/cocaine, heroin, amphetamines, sedatives, opiates, painkillers, methamphetamine and prescription drug ROS ROS Narrative General: Denies fever or chills, general malaise HENT: Nasal congestion EYES: Denies changes in vision Resp: Increased shortness of breath and increased cough with sputum production Cardiac: Denies chest pain GI: Feels somewhat bloated and has some nausea : Denies changes in urination Extremity: Denies swelling MSK: Generalized weakness Neuro: Denies any numbness, denies tingling Heme: Denies any bleeding or bruising Skin: Denies rashes Psychiatric: No complaints voiced Vital Signs Vital Signs Vital Signs: 12/09/22 12:08 12/09/22 12:10 12/09/22 12:53 Temperature 97.6 F L 97.6 F L 98.4 F Temperature Source Temporal Temporal Temporal Pulse Rate 91 91 93 Respiratory Rate 18 18 24 H Respiratory Effort Respiratory Depth Respiratory Pattern Blood Pressure 139/94 H 139/94 H 151/96 H Blood Pressure Mean 109 109 114 Pulse Ox 94 91 96 Oxygen Delivery Method Room Air Room Air Room Air Oxygen Flow Rate (L/min) 12/09/22 12:48 12/09/22 13:02 12/09/22 13:07 Temperature 97.8 F Temperature Source Temporal Pulse Rate 95 95 Respiratory Rate 24 H 20 H Respiratory Effort Short of Breath Labored Respiratory Depth Normal Respiratory Pattern Tachypnea Tachypnea Blood Pressure 136/84 H Blood Pressure Mean 101 Pulse Ox 95 Oxygen Delivery Method Room Air Room Air Oxygen Flow Rate (L/min) 12/09/22 14:09 12/09/22 14:09 12/09/22 15:04 Temperature 98.1 F Temperature Source Oral Pulse Rate 97 101 H 92 Respiratory Rate 25 H 15 18 Respiratory Effort Respiratory Depth Respiratory Pattern Blood Pressure 124/59 H 124/59 H 149/82 H Blood Pressure Mean 80 80 104 Pulse Ox 93 94 93 Oxygen Delivery Method Room Air Room Air Room Air Oxygen Flow Rate (L/min) 12/09/22 15:06 12/09/22 15:58 12/09/22 15:58 Temperature 98.4 F Temperature Source Oral Pulse Rate 96 Respiratory Rate 22 H Respiratory Effort Respiratory Depth Respiratory Pattern Blood Pressure 134/107 H Blood Pressure Mean 116 Pulse Ox 92 87 91 Oxygen Delivery Method Room Air Room Air Nasal Cannula Oxygen Flow Rate (L/min) 2 12/09/22 16:04 12/09/22 16:15 12/09/22 16:27 Temperature 98.4 F 98.7 F Temperature Source Oral Oral Pulse Rate 84 87 84 Respiratory Rate 19 H 19 H 23 H Respiratory Effort Respiratory Depth Respiratory Pattern Blood Pressure 124/69 H 110/68 110/68 Blood Pressure Mean 87 82 82 Pulse Ox 88 96 96 Oxygen Delivery Method Nasal Cannula Nasal Cannula Nasal Cannula Oxygen Flow Rate (L/min) 3 3 3 Weight Weight: 82.6 kg Body Mass Index (BMI) 31.1 Physical Exam Narrative General: Alert, oriented, appears to not feel well HEENT: Atraumatic, normocephalic Eyes: Anicteric, normal conjunctiva, extraocular movements grossly intact Neck: Supple Respiratory: Slight increased respiratory effort, has bilateral wheezes Cardiovascular: Regular rate GI: Soft, nontender, nondistended Extremities: No edema Musculoskeletal: Moving all extremities Neuro: No overt focal neurological deficits Skin: No rashes appreciated Psych: Cooperative Results Lab / Micro Data Result Diagrams: 12/09/22 12:24 12/09/22 12:24 Labs: Laboratory Results - last 24 hr 12/09/22 12:24: WBC 8.4, RBC 4.68, Hgb 13.8, Hct 45.6, MCV 97.4, MCH 29.5, MCHC 30.3 L, RDW Std Deviation 53.9 H, RDW Coeff of Ricardo 15.1 H, Plt Count 331, MPV 9.9, Immature Gran % (Auto) 0.600, Neut % (Auto) 82.2 H, Lymph % (Auto) 9.2 L, [place] % (Auto) 7.5, Eos % (Auto) 0.0, Baso % (Auto) 0.5, Absolute Neuts (auto) 6.9, Absolute Lymphs (auto) 0.77 L, Nucleated RBC % 0 12/09/22 12:24: Sodium 136, Potassium 4.2, Chloride 101, Carbon Dioxide 25.0, Anion Gap 10, BUN 14, Creatinine 0.90, Estim Creat Clear Calc 50.94, Est GFR (MDRD) Af Amer 80, Est GFR (MDRD) Non-Af 66, BUN/Creatinine Ratio 15.6, Glucose 133 H, Calcium 9.0 Micro: Microbiology 12/09/22 12:52 Nasal Secretion SARS-CoV-2 & FLU Antigen (Rapid) - Final Radiology Impression Chest X-Ray 12/09/22 12:39 IMPRESSION: No acute cardiopulmonary abnormality. Electronically Signed: Chad Lara MD at 13:38 EDT , Assessment & Plan Assessment/Plan (1) COPD exacerbation: PLAN: Plan #Acute exacerbation of chronic COPD secondary to human metapneumovirus -Methylpred, DuoNebs, azithromycin -Incentive spirometry -Mucinex -Chest x-ray with no acute infiltrate -COVID and flu negative, respiratory culture pending, respiratory panel was positive for human metapneumovirus #Tobacco abuse -Nicotine patch -Advised cessation #DVT ppx: Vance Hong MD Time spent in the patient's overall evaluation,decision-making process, review of diagnostic data, adjustment of management, discussion with other providers, nursing nursing and ancillary staff involved in patient's care documentation, 51 minutes Charges/Coding Visit Charges Inpatient E&M: 18808 Init Hosp L2
[2022-12-09] MEDS: Azithromycin 250 MG Tablet 500 MG PO (18:12)
[2022-12-09] MEDS: 0.9% Saline Lock 10 ML Syringe IV (20:04)
[2022-12-09] MEDS: Gabapentin 300 MG Capsule PO (20:04)
[2022-12-09] MEDS: guaiFENesin 600 MG Tablet PO (20:04)
[2022-12-09] MEDS: Atorvastatin Calcium 40 MG Tablet PO (20:04)
[2022-12-09] MEDS: MELATONIN 3 MG TABLET PO (20:04)
[2022-12-10] VITALS (10 sets, daily range): BP systolic 92–126; BP diastolic 48–103; PULSE 61–91; RESP 16–20; TEMP 36.5–37.3; O2SAT 86–98
[2022-12-10] MEDS: Ipratropium/Albuterol Sulfate 3 ML AMPUL.NEB INHALATION ×4 (03:03→19:27)
[2022-12-10] MEDS: Gabapentin 300 MG Capsule PO ×2 (05:06→15:00)
[2022-12-10] MEDS: 0.9% Saline Lock 10 ML Syringe IV ×3 (05:07→21:42)
[2022-12-10] MEDS: hydrOXYzine PAM 25 MG Capsule PO (05:14)
[2022-12-10 07:06] LABS: Absolute Lymphocyte Count 0.57 X10^3/uL (0.83-4.51); Absolute Neutrophil Count 8.4 X10^3/uL (2.0-7.7); Basophil# 0.01 X10^3/uL; Basophil% 0.1 % (0-1); Hematocrit 43.8 % (37-47); Hemoglobin 13.1 g/dL (12.0-15.0); Lymphocyte # 0.57 X10^3/ul (0.83-4.51); Lymphocyte % 6.1 % (19-41); Mean Corp Hgb Conc 29.9 g/dL (32-36); Mean Corpuscular Hgb 29.6 pg (27.0-32.0); Mean Corpuscular Volume 99.1 fL (81-99); Monocyte# 0.33 X10^3/uL; Monocyte% 3.5 % (0-10); NRBC Flagged by Analyzer 0 % (0-5); Neutrophil # 8.38 X10^3/uL (2.7-7.7); Neutrophil % 90.1 % (47-70); POSITIVE DIFFERENTIAL YES; Platelet Count 301 K/mm3 (150-450); RBC Distribution Width CV 14.9 % (11.6-14.6); RBC Distribution Width SD 55.1 fl (35.1-43.9); Red Blood Count 4.42 M/mm3 (4.2-5.4); White Blood Count 9.3 K/mm3 (4.4-11.0)
[2022-12-10 07:09] LABS: Differential Indicated SCAN CRITERIA MET
[2022-12-10 07:49] LABS: ALB/GLOB Ratio 0.8 RATIO (0.9-2.4); AST(SGOT) 22 U/L (15-37); Alanine Aminotransfer ALT/SGPT 26 U/L (13-56); Albumin, Serum 3.3 g/dL (3.2-5.0); Alkaline Phosphatase 92 U/L (45-117); Anion Gap 11 (5-15); BUN 24 mg/dL (7-18); BUN/Creat Ratio 18.8 RATIO (10-20); Calcium,Total 8.4 mg/dL (8.5-10.1); Chloride 101 mmol/L (98-107); Creatinine, Serum 1.28 mg/dL (0.55-1.02); EST Glomerular Filtration Rate 44 mL/min (>60); Est Glom Filt Rate - Afr Amer 53 mL/min (>60); Estimated Creatinine Clearance 35.82 ml/min; Globulin 3.9 g/dL (2.2-4.2); Glucose 247 mg/dL (74-106); Potassium 3.7 mmol/L (3.5-5.1); Protein, Total 7.2 g/dL (6.4-8.2); Sodium Level 135 mmol/L (136-145)
[2022-12-10] MEDS: guaiFENesin 600 MG Tablet PO ×2 (08:43→21:42)
[2022-12-10] MEDS: buPROPion (SR) 150 MG Tablet.SA PO (08:43)
[2022-12-10] MEDS: Enoxaparin 40 MG/0.4 ML Syringe SC (08:44)
--- NOTE | 2022-12-10 09:42 | CASEMGMT ---
Addendum entered by Elisabet Raymundo 12/10/22 10:34: TC to pt dtr, she states the oxygen is from [employer] in [place]. She provided a phone number of [phone]. She states she believes her mother was supposed to have returned this. TC to the number provided from tank and call forwarded, left message requesting returned call. Addendum entered by Elisabet Raymundo 12/10/22 10:29: Yolanda espinosa [facility] states note stated pt was active with [facility] when they were given an order. TC to [facility], they state they do not provide pt oxygen. TC to [facility], they do not service pt. Addendum entered by Elisabet Raymundo 12/10/22 10:23: Received notification from Yolanda espinosa [facility] that pt does not get her oxygen there. TC to 's office, they are not showing record of where oxygen is from but states did PFT's. TC to 's office, states pt is not active and they did not prescribe oxygen. Original Note: JOANA FONTENOT Assessment: Face to Face with pt for initial transition planning/care coordination assessment. JOANA FONTENOT introduced self and role at [facility], pt voices understanding and consents to assessment. Pt is A/O x4 and answers all questions appropriately at this time. Pt sitting on edge of bed with oxygen on in no distress. Care providers, pharmacy, and demographics verified/updated. Admitting Dx: AECOPD PCP:Roderick Specialists:Pt denies Preferred Pharmacy:[facility] Insurance: [employer] [facility] Prescription Benefit: yes LNOK: Shaniqua Galvez dtr Living Arrangements: Pt lives with dtr, dtr's boyfriend and 2 grandchildren in a two story home with 5 steps to enter without a rail. Pt reports she is I in ADL's and denies concerns at home. Transportation: Pt drives self and denies concerns with transportation. DME/HHC/SNF: Pt has a nebulizer and oxygen through [employer]. She reports she only wears 3L at HS. Will verify. Pt does not have a pox. Discussed obtaining one and she states it is affordable to her. Pt does not use AD. Pt denies hx of HHC or SNF stays. Pt states no concerns with going home at time of dc. Pt states no further concerns/needs. CM to follow. Advised pt to ask CM if any further question/concerns/needs arise, voices understanding. Pt Goal: Home Plan: Home, follow for increased oxygen need
[2022-12-10 12:56] LABS: Bedside Glucose 126 mg/dL (74-106)
[2022-12-10 17:05] LABS: Bedside Glucose 114 mg/dL (74-106)
--- NOTE | 2022-12-10 17:32 | PN.HOSP_ITS ---
Reason for Visit Reason for Visit: Shortness of breath Subjective Subjective Ms. Barba is a 67-year-old white female who presented to the emergency department [facility] on 12/09/2022 with shortness of breath. She had been suffering from general malaise, increased shortness of breath, cough with production, sinus drainage and multiple sick contacts recently. She had not been getting any better. She also felt bloated and slightly nauseated. The emergency department she was only found to be mildly tachypneic on presentation with a respiratory rate of 25 however she was satting at 93% on room air. Her oxygen saturation unfortunately decreased with movement but movement to less than 88% and she only wears oxygen at night at home at 3 L. Her chest x-ray was unremarkable. She was treated in the emergency department with Solu-Medrol and DuoNebs but that really did not improve her symptoms at all. Her COVID and flu were negative however respiratory viral PCR revealed human metapneumovirus. She was admitted to the medical floor. Patient reports that she still feels poorly. Appetite has improved and she ate 100% of her breakfast. She feels very tired and gets very fatigued with any type of movement. She still is on supplemental oxygen at 3 L. Her oxygen saturation at rest was 90% on room air however with ambulating on room air she desatted to 86% and improved to 92% with 3 L supplemental oxygen. Objective Data Objective Data Vital Signs: Vital Signs Temp Pulse Resp BP Pulse Ox O2 Del Method O2 Flow Rate 98.3 F 75 18 101/63 96 Nasal Cannula 3 12/10/22 14:40 12/10/22 14:40 12/10/22 14:40 12/10/22 14:40 12/10/22 14:40 12/10/22 14:40 12/10/22 14:40 Oxygen Flow Rate (L/min) [ 3 AMBULATING with Oxygen #1] Oxygen Flow Rate (L/min) [At 3 REST with Oxygen] Oxygen Flow Rate (L/min) 3 Oxygen Delivery Method Nasal Cannula Weight: 82.6 kg Body Mass Index (BMI) 31.2 Intake & Output: Intake and Output for Last 24 Hours 12/08/22 12/09/22 12/10/22 22:59 23:59 23:59 Intake Total 720 / 720 Balance 720 / 720 Lab / Micro Data Result Diagrams: 12/10/22 06:30 12/10/22 06:30 Labs: Laboratory Results - last 24 hr 12/10/22 06:30: WBC 9.3, RBC 4.42, Hgb 13.1, Hct 43.8, MCV 99.1 H, MCH 29.6, MCHC 29.9 L, RDW Std Deviation 55.1 H, RDW Coeff of Ricardo 14.9 H, Plt Count 301, MPV 10.0, Immature Gran % (Auto) 0.200, Neut % (Auto) 90.1 H, Lymph % (Auto) 6.1 L, Millard % (Auto) 3.5, Eos % (Auto) 0.0, Baso % (Auto) 0.1, Absolute Neuts (auto) 8.4 H, Absolute Lymphs (auto) 0.57 L, Nucleated RBC % 0 12/10/22 06:30: Sodium 135 L, Potassium 3.7, Chloride 101, Carbon Dioxide 23.0, Anion Gap 11, BUN 24 H, Creatinine 1.28 H, Estim Creat Clear Calc 35.82, Est GFR (MDRD) Af Amer 53 L, Est GFR (MDRD) Non-Af 44 L, BUN/Creatinine Ratio 18.8, Glucose 247 H, Calcium 8.4 L, Total Bilirubin 0.50, AST 22, ALT 26, Alkaline Phosphatase 92, Total Protein 7.2, Albumin 3.3, Globulin 3.9, Albumin/Globulin Ratio 0.8 L 12/10/22 12:38: POC Glucose 126 H 12/10/22 16:44: POC Glucose 114 H Micro: Microbiology 12/09/22 20:00 Sputum, Expectorated/Coughed Gram Stain - Final 12/09/22 20:00 Sputum, Expectorated/Coughed Respiratory Culture - Preliminary Appears to be normal respiratory ivania. Further studies to follow. 12/09/22 16:53 Mucosa - Nasopharyngeal Respiratory Panel (PCR) - Final Human [place] 12/09/22 12:52 Nasal Secretion SARS-CoV-2 & FLU Antigen (Rapid) - Final Physical Exam Const alert, oriented x3, no apparent distress and well nourished Constitutional Narrative: Upper middle-aged white female lying in bed resting, awakens easily, appears ill but not toxic, appears fatigued HEENT head/scalp atraumatic and moist oral mucous membranes Head and Scalp: normocephalic Resp Resp Narrative: Diffuse scattered end expiratory wheeze, no rales or rhonchi, mild tachypnea, no signs of respiratory extremis Cardio regular rate, regular rhythm, S1 normal heart sound, S2 normal heart sound, no murmurs, no rub, no gallops and no clicks GI normal to inspection, nondistended, normoactive bowel sounds, soft to palpation and non-tender Extremity no clubbing, cyanosis or edema Extremity Narrative: 2+ pedal pulses Neuro oriented x3, moves all extremities and no focal motor deficits Speech: speech normal Psych Psych Narrative: Affect is flat and mood seems depressed however this is appropriate given the way she appears to be feeling at this time Assessment & Plan Assessment/Plan (1) Hypoxia: (2) COPD exacerbation: PLAN: Plan Acute hypoxia secondary to acute exacerbation of COPD from human metapneumovirus infection -Continue supplemental oxygen and wean as able -Home O2 eval performed and patient was stable on room air at rest however desatted to 86% with exertion and required 3 L of supplemental oxygen for improvement -Continue IV steroids -Continue IV azithromycin for anti-inflammatory effects -continue DuoNebs -Continue I-S -Add Acapella -Chest x-ray was unremarkable -COVID and flu were negative -Sputum cultures pending Hyperlipidemia -Continue home atorvastatin Hypertension -Continue home lisinopril 20 mill daily Neuropathy/chronic pain -Continue home gabapentin 600 mg 3 times daily -As needed Tylenol COPD -Hold home Breo Ellipta -Recommend outpatient follow-up with blood bank attendant after discharge Depression -Continue home Wellbutrin History of opiate abuse -Avoid opiates -Did go through opiate detox here 08/19/2021 Tobacco abuse -Encouraged cessation Obesity -Recommend weight loss -Complicates treatment, prognosis, outcomes DVT prophylaxis -Continue enoxaparin CODE STATUS -Full code -Nicotine replacement if needed Charges/Coding Visit Charges Inpatient E&M: 68446 Subs Hosp L2
[2022-12-10] MEDS: Atorvastatin Calcium 40 MG Tablet PO (21:42)
[2022-12-10] MEDS: Gabapentin 300 MG Capsule 600 MG PO (21:42)
[2022-12-10] MEDS: MELATONIN 3 MG TABLET PO (21:48)
[2022-12-10] MEDS: Senna/Docusate Sodium 1 Tablet 2 TABLET PO (21:48)
[2022-12-11] VITALS (9 sets, daily range): BP systolic 118–134; BP diastolic 72–85; PULSE 71–89; RESP 16–24; TEMP 36.7–37.1; O2SAT 87–100
[2022-12-11] MEDS: 0.9% Saline Lock 10 ML Syringe IV ×2 (06:10→09:29)
[2022-12-11] MEDS: Gabapentin 300 MG Capsule 600 MG PO ×3 (06:10→22:00)
[2022-12-11 06:31] LABS: Bedside Glucose 132 mg/dL (74-106)
[2022-12-11 06:48] LABS: Absolute Neutrophil Count 6.3 X10^3/uL (2.0-7.7); Basophil# 0.01 X10^3/uL; Basophil% 0.1 % (0-1); Hematocrit 44.8 % (37-47); Hemoglobin 13.6 g/dL (12.0-15.0); Lymphocyte % 12.6 % (19-41); Mean Corp Hgb Conc 30.4 g/dL (32-36); Mean Corpuscular Volume 98.9 fL (81-99); Mean Platelet Vol. 9.8 fl (6.2-12.0); Monocyte# 0.61 X10^3/uL; Monocyte% 7.7 % (0-10); NRBC Flagged by Analyzer 0 % (0-5); Neutrophil # 6.29 X10^3/uL (2.7-7.7); Neutrophil % 79.2 % (47-70); Platelet Count 321 K/mm3 (150-450); RBC Distribution Width CV 15.3 % (11.6-14.6); RBC Distribution Width SD 56.6 fl (35.1-43.9); Red Blood Count 4.53 M/mm3 (4.2-5.4); White Blood Count 7.9 K/mm3 (4.4-11.0)
[2022-12-11] MEDS: Ipratropium/Albuterol Sulfate 3 ML AMPUL.NEB INHALATION ×3 (07:24→19:53)
[2022-12-11] MEDS: Senna/Docusate Sodium 1 Tablet 2 TABLET PO (09:29)
[2022-12-11] MEDS: Enoxaparin 40 MG/0.4 ML Syringe SC (09:29)
[2022-12-11] MEDS: guaiFENesin 600 MG Tablet PO ×2 (09:29→22:13)
[2022-12-11] MEDS: buPROPion (SR) 150 MG Tablet.SA PO (09:29)
[2022-12-11] MEDS: hydrOXYzine PAM 25 MG Capsule PO ×3 (09:37→22:13)
[2022-12-11] MEDS: Acetaminophen 325 MG Tablet 650 MG PO (09:37)
[2022-12-11 10:46] LABS: Anion Gap 7 (5-15); BUN 21 mg/dL (7-18); BUN/Creat Ratio 20.8 RATIO (10-20); Calcium,Total 8.8 mg/dL (8.5-10.1); Chloride 102 mmol/L (98-107); Creatinine, Serum 1.01 mg/dL (0.55-1.02); EST Glomerular Filtration Rate 58 mL/min (>60); Est Glom Filt Rate - Afr Amer 70 mL/min (>60); Glucose 206 mg/dL (74-106); Potassium 4.1 mmol/L (3.5-5.1); Sodium Level 138 mmol/L (136-145)
--- NOTE | 2022-12-11 12:06 | PN.HOSP_ITS ---
Reason for Visit Reason for Visit: Shortness of breath Subjective Subjective Patient states that she is feeling better overall today and having a little bit more energy. Still very fatigued and gets quite winded with exertion. She states that she has to be able to climb 2 flights of step ups at home to get up to her bedroom and bathroom from the kitchen. She is home alone a significant amount during the day as the rest of her household has to work. She states everybody at home was ill as well and that is probably where she got this. We h ave been able to wean her oxygen to 1.5 L at rest and her sats are 100%. I did tell her I anticipate her hopefully being able to go home tomorrow and she was in agreement as long as she continues to improve from a respiratory standpoint. I did indicate to her she will probably wheeze for significant mount of time and we will send her home on steroids. Objective Data Objective Data Vital Signs: Vital Signs Temp Pulse Resp BP Pulse Ox O2 Del Method O2 Flow Rate 98.8 F 86 18 124/76 H 100 Nasal Cannula 1.5 12/11/22 08:39 12/11/22 08:39 12/11/22 08:39 12/11/22 08:39 12/11/22 08:39 12/11/22 08:39 12/11/22 08:39 Oxygen Flow Rate (L/min) [ 3 AMBULATING with Oxygen #1] Oxygen Flow Rate (L/min) [At 3 REST with Oxygen] Oxygen Flow Rate (L/min) 1.5 Oxygen Delivery Method Nasal Cannula Weight: 82.6 kg Body Mass Index (BMI) 31.2 Intake & Output: Intake and Output for Last 24 Hours 12/09/22 12/10/22 12/11/22 23:59 23:59 23:59 Intake Total 1440 / 1440 Balance 1440 / 1440 Lab / Micro Data Result Diagrams: 12/11/22 06:20 12/11/22 10:05 Labs: Laboratory Results - last 24 hr 12/10/22 12:38: POC Glucose 126 H 12/10/22 16:44: POC Glucose 114 H 12/11/22 06:09: POC Glucose 132 H 12/11/22 06:20: WBC 7.9, RBC 4.53, Hgb 13.6, Hct 44.8, MCV 98.9, MCH 30.0, MCHC 30.4 L, RDW Std Deviation 56.6 H, RDW Coeff of Ricardo 15.3 H, Plt Count 321, MPV 9.8, Immature Gran % (Auto) 0.400, Neut % (Auto) 79.2 H, Lymph % (Auto) 12.6 L, [place] % (Auto) 7.7, Eos % (Auto) 0.0, Baso % (Auto) 0.1, Absolute Neuts (auto) 6.3, Absolute Lymphs (auto) 1.00, Nucleated RBC % 0 12/11/22 06:20: Sodium Cancelled, Potassium Cancelled, Chloride Cancelled, Carbon Dioxide Cancelled, Anion Gap Cancelled, BUN Cancelled, Creatinine Cancelled, Estim Creat Clear Calc Cancelled, Est GFR (MDRD) Af Amer Cancelled, Est GFR (MDRD) Non-Af Cancelled, BUN/Creatinine Ratio Cancelled, Glucose Cancelled, Calcium Cancelled, Phosphorus Cancelled, Magnesium Cancelled 12/11/22 10:05: Sodium 138, Potassium 4.1, Chloride 102, Carbon Dioxide 29.0, Anion Gap 7, BUN 21 H, Creatinine 1.01, Estim Creat Clear Calc 45.40, Est GFR (MDRD) Af Amer 70, Est GFR (MDRD) Non-Af 58 L, BUN/Creatinine Ratio 20.8 H, Glucose 206 H, Calcium 8.8, Phosphorus 2.0 L, Magnesium 2.0 Micro: Microbiology 12/09/22 20:00 Sputum, Expectorated/Coughed Gram Stain - Final 12/09/22 20:00 Sputum, Expectorated/Coughed Respiratory Culture - Preliminary Appears to be normal respiratory ivania. Further studies to follow. 12/09/22 16:53 Mucosa - Nasopharyngeal Respiratory Panel (PCR) - Final Human [place] 12/09/22 12:52 Nasal Secretion SARS-CoV-2 & FLU Antigen (Rapid) - Final Physical Exam Const alert, oriented x3, no apparent distress and well nourished Constitutional Narrative: Upper middle-aged white female, sitting up on the edge of the bed, aide at bedside, appears comfortable appears ill but not toxic, appears fatigued but much less so than yesterday HEENT head/scalp atraumatic, moist oral mucous membranes and oropharynx normal HEENT Narrative: Dentition is fair for age, Mallampati is 2, no thrush Head and Scalp: normocephalic Resp normal respiratory effort, no retractions and no use of accessory muscles Resp Narrative: Still with scattered wheezing however less coarse than yesterday Auscultation: wheezes; Negative for rales or rhonchi Cardio regular rate, regular rhythm, S1 normal heart sound, S2 normal heart sound, no murmurs, no rub, no gallops and no clicks GI normal to inspection, nondistended, normoactive bowel sounds, soft to palpation and non-tender Extremity no clubbing, cyanosis or edema Extremity Narrative: 2+ pedal pulses Neuro oriented x3, moves all extremities and no focal motor deficits Speech: speech normal Psych affect normal Psych Narrative: Very pleasant, appropriately interactive Assessment & Plan Assessment/Plan (1) Hypoxia: (2) COPD exacerbation: PLAN: Plan Acute hypoxia secondary to acute exacerbation of COPD from human metapneumovirus infection -Continue supplemental oxygen and wean as able -Home O2 eval performed and patient was stable on room air at rest however desatted to 86% with exertion and required 3 L of supplemental oxygen for improvement -Continue IV steroids -Continue IV azithromycin for anti-inflammatory effects -continue DuoNebs -Continue I-S -Add Acapella -Chest x-ray was unremarkable -COVID and flu were negative -Sputum cultures pending Hyperlipidemia -Continue home atorvastatin Hypertension -Continue home lisinopril 20 mill daily Neuropathy/chronic pain -Continue home gabapentin 600 mg 3 times daily -As needed Tylenol COPD -Hold home Breo Ellipta -Recommend outpatient follow-up with resource program teacher after discharge Depression -Continue home Wellbutrin History of opiate abuse -Avoid opiates -Did go through opiate detox here 08/19/2021 Tobacco abuse -Encouraged cessation Obesity -Recommend weight loss -Complicates treatment, prognosis, outcomes DVT prophylaxis -Continue enoxaparin CODE STATUS -Full code -Nicotine replacement if needed Charges/Coding Visit Charges Inpatient E&M: 63270 Subs Hosp L2
[2022-12-11 12:35] LABS: Bedside Glucose 111 mg/dL (74-106)
--- NOTE | 2022-12-11 12:46 | CASEMGMT ---
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 They state she has a bill and has been sent to [facility] and they will not service pt until this is reconciled. JOANA FONTENOT to speak with pt regarding this. Spoke with Yolanda at [facility], states they are unable to service pt until the 5 years is up with previous company. Addendum entered by Elisabet Raymundo 12/11/22 12:54: TC to [facility] in [place], left message to verify if pt is services for oxygen through them. Also called [employer] in [place] as pt thought this could be the company, left message with returned call info as well. Original Note: JOANA FONTENOT into pt room. Pt is aware that this RN CM is unable to find her oxygen company. Pt states it is out of [place]. She states she does not have portable oxygen. Pt states she cannot obtain pox until next month. She is aware that this RN CM will provide one to her. JOANA FONTENOT to continue to try to find oxygen provider. Pt denies any need for HHC or other services in the home.
[2022-12-11] MEDS: Na Biphos/Potassium Phosphate PACKET 1 PACKET PO ×2 (15:00→16:59)
[2022-12-11 17:05] LABS: Bedside Glucose 116 mg/dL (74-106)
[2022-12-11] MEDS: MELATONIN 3 MG TABLET PO (22:13)
[2022-12-11] MEDS: Atorvastatin Calcium 40 MG Tablet PO (22:13)
[2022-12-12] VITALS (7 sets, daily range): BP systolic 124–146; BP diastolic 75–84; PULSE 70–94; RESP 18–22; TEMP 36.7–37.3; O2SAT 86–100
[2022-12-12] MEDS: Gabapentin 300 MG Capsule 600 MG PO ×2 (06:00→13:28)
[2022-12-12] MEDS: 0.9% Saline Lock 10 ML Syringe IV ×2 (06:02→13:31)
[2022-12-12 06:14] LABS: Absolute Neutrophil Count 4.4 X10^3/uL (2.0-7.7); Hematocrit 42.8 % (37-47); Hemoglobin 12.7 g/dL (12.0-15.0); Lymphocyte % 17.1 % (19-41); Mean Corp Hgb Conc 29.7 g/dL (32-36); Mean Corpuscular Hgb 29.3 pg (27.0-32.0); Mean Corpuscular Volume 98.8 fL (81-99); Mean Platelet Vol. 9.9 fl (6.2-12.0); Monocyte% 6.8 % (0-10); NRBC Flagged by Analyzer 0 % (0-5); Neutrophil # 4.41 X10^3/uL (2.7-7.7); Neutrophil % 75.4 % (47-70); Platelet Count 344 K/mm3 (150-450); RBC Distribution Width CV 15.2 % (11.6-14.6); RBC Distribution Width SD 56.2 fl (35.1-43.9); Red Blood Count 4.33 M/mm3 (4.2-5.4); White Blood Count 5.9 K/mm3 (4.4-11.0)
[2022-12-12 06:31] LABS: Bedside Glucose 165 mg/dL (74-106)
[2022-12-12 06:45] LABS: Anion Gap 6 (5-15); BUN 21 mg/dL (7-18); BUN/Creat Ratio 20.8 RATIO (10-20); Calcium,Total 8.6 mg/dL (8.5-10.1); Chloride 101 mmol/L (98-107); Creatinine, Serum 1.01 mg/dL (0.55-1.02); EST Glomerular Filtration Rate 58 mL/min (>60); Est Glom Filt Rate - Afr Amer 70 mL/min (>60); Glucose 169 mg/dL (74-106); Phosphorus 3.6 mg/dL (2.5-4.9); Potassium 4.3 mmol/L (3.5-5.1); Sodium Level 139 mmol/L (136-145)
[2022-12-12] MEDS: Ipratropium/Albuterol Sulfate 3 ML AMPUL.NEB INHALATION ×2 (07:19→11:16)
[2022-12-12] MEDS: buPROPion (SR) 150 MG Tablet.SA PO (08:43)
[2022-12-12] MEDS: Na Biphos/Potassium Phosphate PACKET 1 PACKET PO ×2 (08:43→13:28)
[2022-12-12] MEDS: Enoxaparin 40 MG/0.4 ML Syringe SC (08:43)
[2022-12-12] MEDS: guaiFENesin 600 MG Tablet PO (08:43)
--- NOTE | 2022-12-12 10:21 | CASEMGMT ---
Addendum entered by Elisabet Raymundo 12/12/22 10:37: Received tc from Heather at [facility], she will bring a portable tank for pt to dc home on. States pt last orders were 5L continuous. Pt requests not to have any information sent to them. Original Note: Director made aware of vm received that [facility] would supply pt with an E tank to dc home on. Pt is needing oxygen with exertion and has no portable tank. JOANA FONTENOT into pt room, discussed that pt has an outstanding balance. Pt states I am pissed off. You did what I didn't want you to do with the oxygen. Made pt aware that this RN PO needed to verify where her oxygen was from in case she needed a portable tank at dc in which she does. Pt states she has no intention of paying the bill with the company. She is aware that they will provide a tank to dc home on but no further oxygen. Pt states she doesn't leave her home anyway. Pt denies further homegoing needs. TC to [facility], left message for returned call for tank to be delivered.
[2022-12-12] MEDS: hydrOXYzine PAM 25 MG Capsule PO (11:06)
--- NOTE | 2022-12-12 11:06 | PCM.DC.SUM ---
Providers Date of Admission: 12/09/22 Date of Discharge: 12/12/22 Primary Care Physician: Dr. Pavan Vaughn MD Reason For Visit: AECOPD Diagnosis Discharge Diagnosis (1) Hypoxia: Status: Acute Code(s): R09.02 - Hypoxemia (2) COPD exacerbation: Status: Chronic Code(s): J44.1 - Chronic obstructive pulmonary disease with (acute) exacerbation Medications at Discharge Home Medications atorvastatin 40 mg tablet 40 mg PO DAILY Check with primary doctor 07/27/21 fluticasone furoate 100 mcg-vilanterol 25 mcg/dose inhalation powder (Breo Ellipta) 1 inh inhalation DAILY PRN Shortness Of Breath 07/27/21 lisinopril 10 mg tablet 20 mg PO DAILY Check with primary doctor 07/27/21 bupropion HCl 150 mg tablet,12 hr sustained-release 150 mg PO DAILY Check with primary doctor 12/09/22 gabapentin 600 mg tablet 600 mg PO TID Check with primary doctor 12/09/22 terbinafine HCl 250 mg tablet 250 mg PO DAILY Check with primary doctor 12/09/22 prednisone 10 mg tablet 10 mg PO DAILY #40 tabs 12/12/22 Hospital Course Operations None Procedures EKG and - (Chest x-ray) Summary of Care Provided Minutes Spent on Discharge: 37 Hospital Course: Ms. Barba is a 67-year-old white female who presented to the emergency department [facility] on 12/09/2022 with shortness of breath.? She had been suffering from general malaise, increased shortness of breath, cough with production, sinus drainage and multiple sick contacts recently in her home.? She had not been getting any better.? She also felt bloated and slightly nauseated.? The emergency department she was only found to be mildly tachypneic on presentation with a respiratory rate of 25 however she was satting at 93% on room air.? Her oxygen saturation unfortunately decreased with movement to less than 88% and she only wears oxygen at night at home at 3 L.? Her chest x-ray was unremarkable.? She was treated in the emergency department with Solu-Medrol and DuoNebs but that really did not improve her symptoms at all.? Her COVID and flu were negative however respiratory viral PCR revealed human metapneumovirus.? She was admitted to the medical floor. On the medical floor she was treated with azithromycin to decrease inflammation, IV Solu-Medrol, scheduled DuoNebs and as needed albuterol, Mucinex, and was ordered I-S and Acapella. She was maintained on these medications during her hospital course and showed dramatic improvement by day 3 of her hospital stay. We did an ambulatory pulse ox and she did require oxygen at 2 L with exertion but none at rest. She had some mild electrolyte abnormalities during her hospital course which were corrected with oral supplementation and on reassessment had corrected. She was able to be discharged home in stable condition on 12/12/2022. She was discharged with a prednisone taper. She states she does still smoke prior to coming in but states she no longer intends to smoke after being discharged. She has made an appointment with Dr. Alexis to be seen but was unable to get in till January. She was asking if we were able to get her in anywhere else earlier. I did recommend trying to call [facility] to see if they could get her in earlier to be seen and if so cancel her other appointment with Dr. Alexis. She voiced understanding and stated she would do that. The information for their office was given at discharge. She was asked to follow-up with her primary care physician within the next 2 weeks. I did recommend that she probably will need follow-up PFTs to assess the severity of her COPD but this would need to be done after she is healed from her current infection. She was discharged home with orders for supplemental oxygen as noted above in stable condition on 12/12/2022. Prescription for the prednisone was sent to her local pharmacy. Discharge diagnoses: Acute hypoxia Acute exacerbation of COPD Human metapneumovirus virus infection Hypophosphatemia-resolved Hypokalemia-resolved Hyperlipidemia Hypertension Neuropathy Chronic pain COPD Depression History of opiate abuse Tobacco abuse Obesity Physical Exam Narrative Patient states she is feeling much better and is anxious to go home if possible today. Const alert, oriented x3, no apparent distress, healthy appearing and well nourished Constitutional Narrative: Upper middle-aged white female, up in a chair at the bedside eating breakfast and watching television, appears comfortable and is if she is feeling much better overall, General Appearance: cooperative, comfortable, well kempt and well developed Orientation / Consciousness: awake, oriented to person, oriented to place and oriented to time Exam Limitations: no limitations Nutritional Appearance: obese HEENT normocephalic, head/scalp atraumatic, hearing grossly normal bilaterally, moist oral mucous membranes and oropharynx normal HEENT Narrative: Dentition is poor, Mallampati is 2-3, no thrush Eyes PERRL, EOMs intact bilaterally and conjunctivae normal Eyes Narrative: No scleral icterus Neck no lymphadenopathy and supple Neck Narrative: Trachea midline, no thyroid enlargement Resp normal respiratory effort, no retractions and no use of accessory muscles Resp Narrative: Very few scattered end expiratory wheezes, overall diffusely diminished, much better Auscultation: wheezes; Negative for rales or rhonchi Cardio regular rate, regular rhythm, S1 normal heart sound, S2 normal heart sound, no murmurs, no rub, no gallops and no clicks GI normal to inspection, nondistended, normoactive bowel sounds, soft to palpation and non-tender Extremity no clubbing, cyanosis or edema Extremity Narrative: 2+ pedal pulses Skin no rashes or lesions noted, no wounds, skin turgor normal and no jaundice Neuro oriented x3, CN's II-XII intact bilaterally, moves all extremities, no focal motor deficits and no sensory deficits noted Speech: speech normal Psych affect normal Psych Narrative: Very pleasant, appropriately interactive Weight / BMI Weight Weight: 82.6 kg Body Mass Index (BMI) 31.2 ABG / Lab / Microbiology Data Result Diagrams: 12/12/22 05:45 12/12/22 05:45 Laboratory: Laboratory Results - last 24 hr 12/11/22 12:18: POC Glucose 111 H 12/11/22 16:45: POC Glucose 116 H 12/12/22 05:45: WBC 5.9, RBC 4.33, Hgb 12.7, Hct 42.8, MCV 98.8, MCH 29.3, MCHC 29.7 L, RDW Std Deviation 56.2 H, RDW Coeff of Ricardo 15.2 H, Plt Count 344, MPV 9.9, Immature Gran % (Auto) 0.700, Neut % (Auto) 75.4 H, Lymph % (Auto) 17.1 L, [place] % (Auto) 6.8, Eos % (Auto) 0.0, Baso % (Auto) 0.0, Absolute Neuts (auto) 4.4, Absolute Lymphs (auto) 1.00, Nucleated RBC % 0 12/12/22 05:45: Sodium 139, Potassium 4.3, Chloride 101, Carbon Dioxide 32.0, Anion Gap 6, BUN 21 H, Creatinine 1.01, Estim Creat Clear Calc 45.40, Est GFR (MDRD) Af Amer 70, Est GFR (MDRD) Non-Af 58 L, BUN/Creatinine Ratio 20.8 H, Glucose 169 H, Calcium 8.6, Phosphorus 3.6 12/12/22 05:59: POC Glucose 165 H Microbiology: Microbiology 12/09/22 20:00 Sputum, Expectorated/Coughed Gram Stain - Final 12/09/22 20:00 Sputum, Expectorated/Coughed Respiratory Culture - Final 12/09/22 16:53 Mucosa - Nasopharyngeal Respiratory Panel (PCR) - Final Human Starr 12/09/22 12:52 Nasal Secretion SARS-CoV-2 & FLU Antigen (Rapid) - Final D/C Instructions Discharge Diet: Low fat / Low cholesterol Discharge Activity: Return to Normal Activity Meaningful Use Info Meaningful Use Diagnoses (Choose all that apply): None applicable Discharge Plan Admission Admit Date/Time: 12/09/22 16:38 Primary Reason for Your Visit: Shortness of breath Attending Provider: Wen Monge Primary Care Provider: Pavan Vaughn Consulting Providers: Mona Hong Instructions Additional Instructions / Restrictions: 1. You were diagnosed with human metapneumovirus which is a viral infection affecting the lungs 2. See pulmonary for follow-up either with your scheduled appointment to see Dr. Alexis or if you are able to get an earlier with the below pulmonologists. When you call the [facility] retail loan originator assistant tell them you were willing to take the first available appointment with a retail loan originator assistant 3. Please wear your oxygen with exertion at 2 L/min. Continue home oxygen use as previously directed. No oxygen required while at rest Discharge Orders/Prescriptions Prescriptions: New prednisone 10 mg tablet 10 mg PO DAILY Qty: 40 0RF Rx Instructions: 4 tablets x 4 days, 3 tablets x 4 days, 2 tablets x 4 days, 1 tablet x 4 days Continued atorvastatin 40 mg tablet 40 mg PO DAILY Label Comments: PT PREFERS AT BEDTIME. lisinopril 10 mg tablet 20 mg PO DAILY fluticasone furoate-vilanterol [Breo Ellipta] 100-25 mcg/dose blister with device 1 inh INHALATION DAILY PRN (Reason: Shortness Of Breath) gabapentin 600 mg tablet 600 mg PO TID Label Comments: TAKE 1 TABLET BY MOUTH THREE TIMES DAILY bupropion HCl 150 mg tablet sustained-release 12 hr 150 mg PO DAILY terbinafine HCl 250 mg tablet 250 mg PO DAILY Referrals / Follow Up: Pavan Vaughn MD [Primary Care Provider] - Within 2 Weeks Saleem Crocker MD [Med Staff - Active Staff] - Within 1 Month (call for an appt) Disposition Disposition (needs filled in before D/C Order can be placed): Home, Self Care Charges/Coding Visit Charges Inpatient E&M: 57139 Disch Hosp >30min
[2022-12-12 11:35] LABS: Bedside Glucose 156 mg/dL (74-106)
--- NOTE | 2022-12-12 14:37 | PHA.DC.MR ---
Pharmacy Service has performed discharge medication reconciliation for this patient. The patient's discharge medication list was reviewed for discrepancies and discrepancies were resolved. Home Medications atorvastatin 40 mg tablet 40 mg PO DAILY Check with primary doctor 07/27/21 fluticasone furoate 100 mcg-vilanterol 25 mcg/dose inhalation powder (Breo Ellipta) 1 inh inhalation DAILY PRN Shortness Of Breath 07/27/21 lisinopril 10 mg tablet 20 mg PO DAILY Check with primary doctor 07/27/21 bupropion HCl 150 mg tablet,12 hr sustained-release 150 mg PO DAILY Check with primary doctor 12/09/22 gabapentin 600 mg tablet 600 mg PO TID Check with primary doctor 12/09/22 terbinafine HCl 250 mg tablet 250 mg PO DAILY Check with primary doctor 12/09/22 prednisone 10 mg tablet 10 mg PO DAILY #40 tabs 12/12/22
== END 2022-12-12 16:00 | disposition home or self-care (01) | DRG 192 ==
LOC: ED 16:10 → MS3 16:47
PROVIDERS: Admitting Provider Internal Medicine; Emergency Provider Emergency Medicine; PCP Family Medicine; Visit Provider Internal Medicine
DX: J44.1 Chronic obstructive pulmonary disease with (acute) exacerbation (principal); E83.39 Other disorders of phosphorus metabolism; F17.210 Nicotine dependence, cigarettes, uncomplicated; I10 Essential (primary) hypertension; E78.00 Pure hypercholesterolemia, unspecified; G62.9 Polyneuropathy, unspecified; E87.6 Hypokalemia; J06.9 Acute upper respiratory infection, unspecified; B97.81 Human metapneumovirus as the cause of diseases classified elsewhere; F32.A Depression, unspecified; G89.29 Other chronic pain; E66.9 Obesity, unspecified; R09.02 Hypoxemia; Z68.31 Body mass index [BMI] 31.0-31.9, adult; Z79.01 Long term (current) use of anticoagulants; Z79.899 Other long term (current) drug therapy
CPT/HCPCS: 36415; 71045; 80048; 80053; 82962; 83735; 84100; 85025; 87070; 87205; 87428; 87633; 93005; 94640; 94668; 97161; 99252; 99285; 99406; A4216; G0463; J2405

== ENCOUNTER → 2022-12-21 | Outpatient (CLI) | payer MEDICARE, SELFPAY ==
[2022-12-21 15:53] LABS: Absolute Lymphocyte Count 2.18 X10^3/uL (0.83-4.51); Absolute Neutrophil Count 8.8 X10^3/uL (2.0-7.7); Basophil# 0.05 X10^3/uL; Basophil% 0.4 % (0-1); Eosinophil# 0.07 X10^3/uL; Eosinophils% 0.6 % (0-5); Hematocrit 45.8 % (37-47); Hemoglobin 13.7 g/dL (12.0-15.0); Lymphocyte # 2.18 X10^3/ul (0.83-4.51); Lymphocyte % 18.1 % (19-41); Mean Corp Hgb Conc 29.9 g/dL (32-36); Mean Corpuscular Hgb 29.3 pg (27.0-32.0); Mean Corpuscular Volume 98.1 fL (81-99); Mean Platelet Vol. 9.4 fl (6.2-12.0); Monocyte# 0.86 X10^3/uL; Monocyte% 7.1 % (0-10); NRBC Flagged by Analyzer 0 % (0-5); Neutrophil # 8.82 X10^3/uL (2.7-7.7); Neutrophil % 73.3 % (47-70); Platelet Count 438 K/mm3 (150-450); RBC Distribution Width CV 15.1 % (11.6-14.6); RBC Distribution Width SD 54.4 fl (35.1-43.9); Red Blood Count 4.67 M/mm3 (4.2-5.4)
[2022-12-21 16:13] LABS: ALB/GLOB Ratio 0.9 RATIO (0.9-2.4); AST(SGOT) 16 U/L (15-37); Alanine Aminotransfer ALT/SGPT 23 U/L (13-56); Albumin, Serum 3.2 g/dL (3.2-5.0); Alkaline Phosphatase 89 U/L (45-117); Anion Gap 5 (5-15); BUN 17 mg/dL (7-18); BUN/Creat Ratio 17.6 RATIO (10-20); Calcium,Total 8.6 mg/dL (8.5-10.1); Chloride 102 mmol/L (98-107); Cholesterol 314 mg/dL (200); Creatinine, Serum 0.97 mg/dL (0.55-1.02); EST Glomerular Filtration Rate 61 mL/min (>60); Est Glom Filt Rate - Afr Amer 73 mL/min (>60); Globulin 3.7 g/dL (2.2-4.2); Glucose 90 mg/dL (74-106); High Density Lipoprotein 90 mg/dL; Potassium 4.1 mmol/L (3.5-5.1); Protein, Total 6.9 g/dL (6.4-8.2); Sodium Level 137 mmol/L (136-145); Thyroid Stim Hormone (TSH) 1.03 uIU/mL (0.358-3.74); Triglycerides 243 mg/dL; Very Low Density Lipoprotein 49 mg/dL (5-40)
[2022-12-21 17:01] LABS: Hemoglobin A1c 5.5 % (3.8-5.6)
== END | disposition home or self-care (01) ==
LOC: MFPLAB 14:31
PROVIDERS: PCP Family Medicine; Visit Provider Family Medicine
DX: I10 Essential (primary) hypertension (principal); R73.02 Impaired glucose tolerance (oral)
CPT/HCPCS: 36415; 80053; 80061; 83036; 84443; 85025

== ENCOUNTER → 2022-12-26 | Outpatient (CLI) | payer MEDICARE, SELFPAY ==
--- NOTE | 2022-12-26 11:28 | RAD_ITS ---
STUDY: X-RAY - RIGHT KNEE REASON FOR EXAM: Female, 67 years old. Acute pain. TECHNIQUE: 3 view(s) of the knee. COMPARISON: None. FINDINGS: Osteopenia. Normal visualized distal femur. Normal visualized proximal tibia and fibula. Normal proximal tibiofibular articulation. Normal medial femorotibial compartment. Normal lateral femorotibial compartment. Normal patellofemoral articulation. Small joint effusion. Normal soft tissues. RAD/Knee 3 Views IMPRESSION: Osteopenia with small joint effusion. No other abnormality. Electronically Signed: Rosalio Spears, at 12:03 EDT ,
== END | disposition home or self-care (01) ==
LOC: MTRAD 11:26
PROVIDERS: PCP Family Medicine; Referring Provider Nurse Practitioner Family; Visit Provider Nurse Practitioner Family
DX: M25.561 Pain in right knee (principal)
CPT/HCPCS: 73562

== ENCOUNTER 2022-12-31 16:00 | Emergency (ER) | payer MEDICARE, SELFPAY ==
[2022-12-31 16:01] VITALS: BP 164/99; PULSE 91; RESP 24; TEMP 36.1; O2SAT 97
--- NOTE | 2022-12-31 16:30 | EKG12_ITS ---
Test Reason : CP Blood Pressure : / mmHG Vent. Rate : 093 BPM Atrial Rate : 093 BPM P-R Int : 124 ms QRS Dur : 076 ms QT Int : 382 ms P-R-T Axes : 073 054 062 degrees QTc Int : 474 ms Sinus rhythm with marked sinus arrhythmia Otherwise normal ECG Confirmed by BELINDA BROWN, LEILANI ([id number]), school photograph editor ZIYAD RIVERA ([id number]) on 01/02/2023 9:53:09 AM Referred By: PADMINI Confirmed By:MARIA EUGENIA TREVINO MD
--- NOTE | 2022-12-31 16:40 | RAD_ITS ---
STUDY: X-RAY CHEST REASON FOR EXAM: Female, 67 years old. Chest pain. TECHNIQUE: Single AP portable view of the chest. COMPARISON: December 09, 2022. FINDINGS: The lungs are clear and expanded. There is no new infiltrate or mass. There is no demonstrated pleural abnormality. Normal size heart. Normal mediastinum and soumya. Normal visualized pulmonary arteries. Normal visualized aortic arch and descending thoracic aorta. A mild scoliosis of the thoracolumbar spine. Normal visualized ribs, clavicles, and shoulders. There is no demonstrated abnormality of the visualized soft tissue structures of the upper abdomen. RAD/Chest 1 View (Portable) IMPRESSION: No acute cardiopulmonary disease or interval change. Electronically Signed: Reza Gauthier DO at 18:03 EDT ,
--- NOTE | 2022-12-31 16:40 | ED.VIS.CHEST ---
HPI History of Present Illness Chief Complaint: Chest Pain Narrative Narrative: 67-year-old female with history of hypertension, COPD, tobacco use presenting with chest tightness. Its been ongoing for some time. She states that she still smokes half a pack of cigarettes per day. She also reports that she has very bad anxiety. She saw her boiler tenders supervisor today. Her boiler tenders supervisor discussed with her that she has moderate COPD. She just finished prednisone yesterday. Patient left the office and went home but states she still feels tight and short of breath. Has not had a fever or chills. She states that she wears 2 L of oxygen at night but she feels too short of breath when she is walking around. She also reports that she cannot lay flat any more in her bed. She states that when she lays down flat she cannot breathe. She denies any leg swelling. [facility] Medical History Arthritis COPD (chronic obstructive pulmonary disease) High cholesterol HTN (hypertension) Hypercholesterolemia Overactive bladder PAC (premature atrial contraction) Polysubstance abuse Home Medications atorvastatin 40 mg tablet 40 mg PO DAILY Check with primary doctor 07/27/21 [History Last Taken Unknown] lisinopril 10 mg tablet 20 mg PO DAILY Check with primary doctor 07/27/21 [History Last Taken Unknown] bupropion HCl 150 mg tablet,12 hr sustained-release 150 mg PO DAILY Check with primary doctor 12/09/22 [History Last Taken Unknown] gabapentin 600 mg tablet 600 mg PO TID Check with primary doctor 12/09/22 [History Last Taken Unknown] terbinafine HCl 250 mg tablet 250 mg PO DAILY Check with primary doctor 12/09/22 [History Last Taken Unknown] albuterol sulfate 2.5 mg/3 mL (0.083 %) solution for nebulization 2.5 mg inhalation Q4H PRN 12/31/22 [History Last Taken Unknown] albuterol sulfate 90 mcg/actuation aerosol inhaler 2 puff inhalation Q4H PRN 12/31/22 [History Last Taken Unknown] fluticasone fur. 100 mcg-umeclid 62.5 mcg-vilant 25 mcg inhalat.powder (Trelegy Ellipta) 1 inh inhalation DAILY 12/31/22 [History Last Taken Unknown] hydroxyzine pamoate 25 mg capsule (Vistaril) 25 mg PO TID PRN anxiety #30 caps 12/31/22 [Rx Last Taken Unknown] nicotine 10 mg inhalation cartridge (Nicotrol) 1 inh inhalation ONCE PRN nicotine cravings #168 ea 12/31/22 [Rx Last Taken Unknown] prednisone 50 mg tablet 50 mg PO DAILY #5 tabs 12/31/22 [Rx Last Taken Unknown] Allergy/AdvReac Type Severity Reaction Status Date / Time No Known Allergies Allergy Verified 12/31/22 16:01 Family History Father CAD (coronary artery disease) Heart disease CVA (cerebral vascular accident) Mother Colon cancer Surgical History H/O: hysterectomy History of carpal tunnel surgery History of mandibular surgery Social History Smoking Status: Current every day smoker tobacco type: cigarettes alcohol intake: former substance use type: marijuana, crack/cocaine, heroin, amphetamines, sedatives, opiates, painkillers, methamphetamine and prescription drug ROS ROS ED Constitutional Constitutional ED: Denies chills, fever(s) or sweats Eyes Eyes: Denies blurry vision or change in vision ENT ENT ED: Denies ear pain or sore throat Cardiovascular Cardiovascular: Reports chest pain; Denies palpitations or racing heartbeat Respiratory/Chest Respiratory/Chest: Reports dyspnea and dyspnea on exertion; Denies sputum Gastrointestinal Gastrointestinal: Denies abdominal pain, constipation, diarrhea, nausea or vomiting Genitourinary Genitourinary ED: Denies dysuria, hematuria or urinary frequency Musculoskeletal Musculoskeletal: Denies arthralgias, myalgias or neck pain Integumentary Denies abscess, Abrasions or rash Neurologic Neurologic: Denies headache(s), paresthesias or weakness Psychiatric Psychiatric: Reports anxiety; Denies depression, suicidal ideation or suicidal thoughts Endocrine Endocrinology: Denies polydipsia or polyuria EXAM Physical Exam Const Vital Signs: 12/31/22 16:01 12/31/22 16:23 12/31/22 16:30 Temperature 97 F L Temperature Source Temporal Pulse Rate 91 Respiratory Rate 24 H Respiratory Effort Short of Breath Respiratory Pattern Blood Pressure 164/99 H Blood Pressure Mean 120 Pulse Ox 97 Oxygen Delivery Method Room Air Room Air 12/31/22 16:50 12/31/22 17:00 12/31/22 18:00 Temperature Temperature Source Pulse Rate 81 84 Respiratory Rate 18 19 H 18 Respiratory Effort Respiratory Pattern Normal Blood Pressure 175/93 H Blood Pressure Mean 120 Pulse Ox 94 Oxygen Delivery Method Room Air Positive well nourished General Appearance ED: NAD; Negative for pallor HEENT Reports moist mucous membranes normocephalic Chest Wall inspection of chest normal and palpation of chest normal Resp Resp Narrative: Slightly tachypneic Auscultation: wheezes expiratory wheezes Neuro oriented x3 and CN's II-XII intact bilaterally Sensorium / Orientation: awake and alert Psych mental status grossly normal Skin no rashes or lesions noted General Skin Exam: Negative for jaundice or pallor Heart Score History: Slightly/Non-Suspicious ECG: Normal Age: >/= 65 years Risk Factors: >/= 3 Risk Factors or History of CAD Score: 4 MDM MDM MDM Narrative Medical decision making narrative: Patient presenting with chest tightness. She has history of anxiety and admits to feeling anxious. She also has a history of COPD and is wheezing on examination. Patient given Solu-Medrol and breathing treatments. HEART score of 4. Patient continues to smoke cigarettes she states. She was just seen by her boiler tenders supervisor today. Differential includes but is not limited to ACS, pneumonia, pneumothorax, muscle strain, costochondritis, COPD exacerbation, anxiety, CHF. CBC to assess white blood cell count, hemoglobin, differential. BMP to assess renal function, electrolytes, glucose, anion gap. High-sensitivity troponin to assess for cardiac etiology. EKG was performed and on my interpretation this is a normal sinus rhythm ischemic change or dysrhythmia. Chest x-ray my interpretation shows no acute cardiopulmonary process. Etiology in agreement. CBC essentially unremarkable. BMP is also normal. Glucose 113 without anion gap. High-sensitivity troponin and delta troponin are both 21. No significant interval change. Patient feeling improved after breathing treatments. I will give her a burst of prednisone for home. She has albuterol at home as well. Patient counseled to discontinue smoking. She requested something for anxiety and I gave her some Vistaril. She states she was on this before from her primary care doctor. Impression: 1. Chest pain 2. COPD exacerbation 3. Anxiety Lab Data Attestation: I reviewed the patient's lab results. Labs: Laboratory Results - last 24 hr 12/31/22 12/31/22 12/31/22 16:35 16:35 19:04 WBC 8.4 RBC 4.31 Hgb 12.9 Hct 41.3 MCV 95.8 MCH 29.9 MCHC 31.2 L RDW Std Deviation 51.3 H RDW Coeff of Ricardo 14.6 Plt Count 347 MPV 9.4 Immature Gran % (Auto) 0.100 Neut % (Auto) 76.3 H Lymph % (Auto) 16.4 L [place] % (Auto) 6.8 Eos % (Auto) 0.2 Baso % (Auto) 0.2 Absolute Neuts (auto) 6.4 Absolute Lymphs (auto) 1.38 Nucleated RBC % 0 Sodium 137 Potassium 3.9 Chloride 106 Carbon Dioxide 24.0 Anion Gap 7 BUN 11 Creatinine 0.90 Est GFR (MDRD) Af Amer 80 Est GFR (MDRD) Non-Af 66 BUN/Creatinine Ratio 12.2 Glucose 113 H Calcium 9.0 Troponin I High Sens 21 21 Radiography Diagnostic Testing: Clinical Impression(s) from Imaging Studies Chest X-Ray 12/31/22 16:40 IMPRESSION: No acute cardiopulmonary disease or interval change. Electronically Signed: Reza Gauthier DO at 18:03 EDT Reading Location ID and State: [facility] / [place] Tel [phone], Service support , Discharge Plan Triage Chief Complaint: Chest Pain ED Provider: Mickey Diaz Dx/Rx/DC Orders Instructions: ED Anxiety Reaction, ED Chest Pain, Noncardiac, ED COPD Flare Prescriptions: New prednisone 50 mg tablet 50 mg PO DAILY Qty: 5 0RF hydroxyzine pamoate [Vistaril] 25 mg capsule 25 mg PO TID PRN (Reason: anxiety) Qty: 30 0RF No Action Trelegy Ellipta 100-62.5-25 mcg blister with device 1 inh inhalation DAILY albuterol sulfate 90 mcg/actuation HFA aerosol inhaler 2 puff inhalation Q4H PRN albuterol sulfate 2.5 mg /3 mL (0.083 %) solution for nebulization 2.5 mg inhalation Q4H PRN Nicotrol 10 mg cartridge 1 inh inhalation ONCE PRN (Reason: nicotine cravings) Qty: 168 8RF atorvastatin 40 mg tablet 40 mg PO DAILY Label Comments: PT PREFERS AT BEDTIME. lisinopril 10 mg tablet 20 mg PO DAILY gabapentin 600 mg tablet 600 mg PO TID Label Comments: TAKE 1 TABLET BY MOUTH THREE TIMES DAILY bupropion HCl 150 mg tablet sustained-release 12 hr 150 mg PO DAILY terbinafine HCl 250 mg tablet 250 mg PO DAILY Primary Care Provider: Pavan Vaughn Referrals: Pavan Vaughn MD [Primary Care Provider] - Disposition Disposition: Home, Self Care
[2022-12-31] MEDS: Albuterol 2.5 MG/3 ML VIAL.NEB. INHALATION (16:49)
[2022-12-31] MEDS: Ipratropium/Albuterol Sulfate 3 ML AMPUL.NEB INHALATION (16:49)
[2022-12-31 16:50] VITALS: PULSE 81; RESP 18
[2022-12-31] MEDS: MethylPREDNISolone 125 MG/2 ML Vial IV (16:52)
[2022-12-31] MEDS: hydrOXYzine PAM 25 MG Capsule PO (16:52)
[2022-12-31 16:59] LABS: Absolute Lymphocyte Count 1.38 X10^3/uL (0.83-4.51); Absolute Neutrophil Count 6.4 X10^3/uL (2.0-7.7); Basophil# 0.02 X10^3/uL; Basophil% 0.2 % (0-1); Eosinophil# 0.02 X10^3/uL; Eosinophils% 0.2 % (0-5); Hematocrit 41.3 % (37-47); Hemoglobin 12.9 g/dL (12.0-15.0); Lymphocyte # 1.38 X10^3/ul (0.83-4.51); Lymphocyte % 16.4 % (19-41); Mean Corp Hgb Conc 31.2 g/dL (32-36); Mean Corpuscular Hgb 29.9 pg (27.0-32.0); Mean Corpuscular Volume 95.8 fL (81-99); Mean Platelet Vol. 9.4 fl (6.2-12.0); Monocyte# 0.57 X10^3/uL; Monocyte% 6.8 % (0-10); NRBC Flagged by Analyzer 0 % (0-5); Neutrophil # 6.42 X10^3/uL (2.7-7.7); Neutrophil % 76.3 % (47-70); Platelet Count 347 K/mm3 (150-450); RBC Distribution Width CV 14.6 % (11.6-14.6); RBC Distribution Width SD 51.3 fl (35.1-43.9); Red Blood Count 4.31 M/mm3 (4.2-5.4); White Blood Count 8.4 K/mm3 (4.4-11.0)
[2022-12-31 17:00] VITALS: BP 175/93; PULSE 84; RESP 19; O2SAT 94
[2022-12-31 17:17] LABS: Anion Gap 7 (5-15); BUN 11 mg/dL (7-18); BUN/Creat Ratio 12.2 RATIO (10-20); Chloride 106 mmol/L (98-107); EST Glomerular Filtration Rate 66 mL/min (>60); Est Glom Filt Rate - Afr Amer 80 mL/min (>60); Glucose 113 mg/dL (74-106); Potassium 3.9 mmol/L (3.5-5.1); Sodium Level 137 mmol/L (136-145); Troponin-I HS (w/2H Reflex) 21 pg/mL (3.0-54.0)
[2022-12-31 18:00] VITALS: RESP 18
[2022-12-31 18:42] LABS: Reflex Troponin-HS? (from REC) Y
--- NOTE | 2022-12-31 19:10 | ED.RN ---
PT REQUESTING MORE ANXIETY MEDS. PT STATES IF YOU DON'T GIVE ME SOMETHING, ILL JUST CALL MY DAUGHTER AND HAVE HER PICK ME UP. SHE SAID I CAN CALL MY PRIMARY DOCTOR TOMORROW. DR MAY UPDATED.
[2022-12-31 19:41] LABS: Troponin-I HS 21 pg/mL (3.0-54.0)
[2022-12-31 20:21] VITALS: BP 158/74; PULSE 93; RESP 19; O2SAT 95
== END 2022-12-31 21:06 | disposition home or self-care (01) ==
PROVIDERS: Emergency Provider Student in an Organized Health Care Education/Training Program; PCP Family Medicine; Visit Provider Student in an Organized Health Care Education/Training Program
DX: R07.9 Chest pain, unspecified (principal); J44.1 Chronic obstructive pulmonary disease with (acute) exacerbation; F41.9 Anxiety disorder, unspecified; F12.90 Cannabis use, unspecified, uncomplicated; F17.210 Nicotine dependence, cigarettes, uncomplicated; Z99.81 Dependence on supplemental oxygen
CPT/HCPCS: 71045; 80048; 84484; 85025; 93005; 94640; 96374; 99285; A4216

== ENCOUNTER 2023-01-20 08:52 | Emergency (ER) | payer MEDICARE, SELFPAY ==
[2023-01-20 08:53] VITALS: BP 179/85; PULSE 79; RESP 16; TEMP 36.6; O2SAT 98; BMI 30.1
--- NOTE | 2023-01-20 09:04 | EDS_ITS ---
HPI History of Present Illness Chief Complaint: Chest Pain Informant: patient Onset/Context/Timing Onset: Today Timing: Continuous Quality: Positive for Pressure and Tightness Location: Substernal Current Severity: Moderate Maximum Severity: Moderate Narrative Narrative: Patient presents with chest pressure and heaviness with tightness that started around 3 AM this morning. She does feel somewhat short of breath. She has had mild recent cough but no fever. Patient states that she will start shaking anytime she tries to relax to go to sleep. Patient was seen in the emergency room earlier this month with chest pain, shortness of breath, anxiety. She was given a short course of Vistaril which she states did seem to help with the time. [facility] Medical History Arthritis COPD (chronic obstructive pulmonary disease) High cholesterol HTN (hypertension) Hypercholesterolemia Overactive bladder PAC (premature atrial contraction) Polysubstance abuse Home Medications atorvastatin 40 mg tablet 40 mg PO DAILY Check with primary doctor 07/27/21 [History Last Taken Unknown] lisinopril 10 mg tablet 20 mg PO DAILY Check with primary doctor 07/27/21 [History Last Taken Unknown] bupropion HCl 150 mg tablet,12 hr sustained-release 150 mg PO DAILY Check with primary doctor 12/09/22 [History Last Taken Unknown] gabapentin 600 mg tablet 600 mg PO TID Check with primary doctor 12/09/22 [History Last Taken Unknown] terbinafine HCl 250 mg tablet 250 mg PO DAILY Check with primary doctor 12/09/22 [History Last Taken Unknown] albuterol sulfate 2.5 mg/3 mL (0.083 %) solution for nebulization 2.5 mg inhalation Q4H PRN 12/31/22 [History Last Taken Unknown] albuterol sulfate 90 mcg/actuation aerosol inhaler 2 puff inhalation Q4H PRN 12/31/22 [History Last Taken Unknown] fluticasone fur. 100 mcg-umeclid 62.5 mcg-vilant 25 mcg inhalat.powder (Trelegy Ellipta) 1 inh inhalation DAILY 12/31/22 [History Last Taken Unknown] hydroxyzine pamoate 25 mg capsule (Vistaril) 25 mg PO TID PRN anxiety #30 caps 12/31/22 [Rx Last Taken Unknown] nicotine 10 mg inhalation cartridge (Nicotrol) 1 inh inhalation ONCE PRN ni cotine cravings #168 ea 12/31/22 [Rx Last Taken Unknown] prednisone 50 mg tablet 50 mg PO DAILY #5 tabs 12/31/22 [Rx Last Taken Unknown] loratadine 10 mg tablet (Claritin) 10 mg PO DAILY #30 tabs 01/20/23 [Rx Last Taken Unknown] lorazepam 0.5 mg tablet (Ativan) 0.5 mg PO BID PRN anxiety #10 tabs 01/20/23 [Rx Last Taken Unknown] omeprazole 20 mg capsule,delayed release 20 mg PO DAILY #30 CAPSULES 01/20/23 [Rx Last Taken Unknown] simethicone 180 mg capsule 180 mg PO BID PRN abdominal distention #14 caps 01/20/23 [Rx Last Taken Unknown] Allergy/AdvReac Type Severity Reaction Status Date / Time No Known Allergies Allergy Verified 01/20/23 08:53 Family History Father CAD (coronary artery disease) Heart disease CVA (cerebral vascular accident) Mother Colon cancer Surgical History H/O: hysterectomy History of carpal tunnel surgery History of mandibular surgery Social History Smoking Status: Current every day smoker tobacco type: cigarettes alcohol intake: former substance use type: marijuana, crack/cocaine, heroin, amphetamines, sedatives, opiates, painkillers, methamphetamine and prescription drug ROS ROS ED Constitutional Constitutional ED: Denies chills or fever(s) Eyes Eyes: Denies change in vision ENT ENT ED: Denies rhinorrhea or sore throat Cardiovascular Cardiovascular: Reports chest pain; Denies palpitations Respiratory/Chest Respiratory/Chest: Reports cough and dyspnea Gastrointestinal Gastrointestinal: Denies abdominal pain, nausea or vomiting Genitourinary Genitourinary ED: Denies difficulty urinating or dysuria Musculoskeletal Musculoskeletal: Denies back pain or extremity pain Integumentary Denies Abrasions or rash Neurologic Neurologic: Reports other Details: Shaking ; Denies headache(s) or weakness Psychiatric Psychiatric: Denies anxiety or depression Allergic/Immunologic Allergic/Immunologic ED: Denies lip swelling or urticaria EXAM Physical Exam Const Vital Signs: 01/20/23 08:53 01/20/23 08:55 01/20/23 09:25 Temperature 97.8 F Temperature Source Temporal Pulse Rate 79 Respiratory Rate 16 Respiratory Effort Normal Non-Labored Blood Pressure 179/85 H Blood Pressure Mean 116 Pulse Ox 98 97 Oxygen Delivery Method Room Air Room Air 01/20/23 09:56 01/20/23 11:02 Temperature Temperature Source Pulse Rate 78 73 Respiratory Rate 18 14 Respiratory Effort Blood Pressure 146/99 H 150/97 H Blood Pressure Mean 114 114 Pulse Ox 92 97 Oxygen Delivery Method Room Air Room Air Positive well nourished and well developed General Appearance ED: well developed HEENT Reports normocephalic and head/scalp atraumatic Eyes PERRL and EOMs intact bilaterally Neck supple Chest Wall inspection of chest normal and palpation of chest normal Resp normal respiratory effort and clear to auscultation bilaterally Cardio regular rate and regular rhythm GI normal to inspection, nondistended, normoactive bowel sounds Palpation: soft Extremity normal to inspection Neuro oriented x3 and no sensory deficits noted Sensorium / Orientation: alert Motor Exam: strength 5/5 throughout Psych Psych Narrative: Patient appears anxious with pressured speech. 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 Aspirin given along with a small dose of Ativan for anxiety. EKG obtained to evaluate for cardiac arrhythmia/ischemia. Chest x-ray obtained to evaluate for acute lung pathology, cardiac size, or mediastinal abnormality. Labwork obtained to evaluate for leukocytosis, anemia, and electrolyte derangement. Recent ED visit for similar complaint is reviewed. History & Record Review Additional record(s) reviewed:: Prior ED visit and Prior labs Lab Data Attestation: I reviewed the patient's lab results. Labs: Laboratory Results - last 24 hr 01/20/23 01/20/23 01/20/23 09:00 09:00 09:00 WBC 8.9 RBC 5.05 Hgb 15.1 H Hct 47.4 H MCV 93.9 MCH 29.9 MCHC 31.9 L RDW Std Deviation 46.7 H RDW Coeff of Ricardo 13.5 Plt Count 379 MPV 9.8 Immature Gran % (Auto) 0.200 Neut % (Auto) 77.0 H Lymph % (Auto) 15.8 L Bowman % (Auto) 6.0 Eos % (Auto) 0.5 Baso % (Auto) 0.5 Absolute Neuts (auto) 6.9 Absolute Lymphs (auto) 1.40 Nucleated RBC % 0 D-Dimer Quant (PE/DVT) 0.60 H* Sodium 137 Potassium 3.8 Chloride 108 H Carbon Dioxide 24.0 Anion Gap 5 BUN 10 Creatinine 1.06 H Estim Creat Clear Calc 45.07 Est GFR (MDRD) Af Amer 66 Est GFR (MDRD) Non-Af 55 L BUN/Creatinine Ratio 9.4 L Glucose 103 Calcium 9.5 Troponin I High Sens 23 01/20/23 11:20 WBC RBC Hgb Hct MCV MCH MCHC RDW Std Deviation RDW Coeff of Ricardo Plt Count MPV Immature Gran % (Auto) Neut % (Auto) Lymph % (Auto) Bowman % (Auto) Eos % (Auto) Baso % (Auto) Absolute Neuts (auto) Absolute Lymphs (auto) Nucleated RBC % D-Dimer Quant (PE/DVT) Sodium Potassium Chloride Carbon Dioxide Anion Gap BUN Creatinine Estim Creat Clear Calc Est GFR (MDRD) Af Amer Est GFR (MDRD) Non-Af BUN/Creatinine Ratio Glucose Calcium Troponin I High Sens 13 Radiography Chest X-Ray - ED: 1 View, Read by ED Physician, Chronic Changes and No Infiltrates Diagnostic Testing: Clinical Impression(s) from Imaging Studies Chest X-Ray 01/20/23 09:28 IMPRESSION: No radiographic evidence of acute cardiopulmonary disease. Electronically Signed: Yissel Davis MD at 9:48 EDT Reading Location ID and State: [facility] / [place] Tel , Service support , EKG Initial EKG: Attestation: I personally reviewed and interpreted this EKG as follows: Interpretation: Sinus Rhythm (Sinus 82 with no acute ischemia.) Differential Diagnosis Chest pain/SOB: pulmonary embolism Reason(s) PE less likely: Positive for D- Dimer negative, not tachycardic and not hypoxic, ACS ACS: Positive for no evide nce of ACS based on cardiac biomarkers and EKG without ischemia and pneumonia Reason(s) pneumonia less likely: Positive for no infiltrate on CXR and no elevation in WBC count Treatment and Re-Evaluation :: CBC was normal white count 8.9. Hemoglobin is slightly concentrated at 15.1. Chemistry studies are unremarkable. Initial troponin is 23 with delta troponin of 13. D-dimer is 0.60, normal when age-adjusted. On repeat evaluation patient was complaining of problems with frequent swallowing and a lot of drainage in the back of her throat. She is given a dose of Benadryl. She is also complaining of gaseous distention of her stomach. She states that she has not been able to belch or pass gas. She has active bowel sounds and no abdominal tenderness. I do not believe she needs imaging studies at this time. She is given a dose of simethicone. Patient has follow-up with scheduled with her PCP in 3 days. She will be given prescription for simethicone, Ativan, Claritin, and omeprazole. Return instructions given. Discharge Plan Triage Chief Complaint: Chest Pain ED Provider: Dorene Love Dx/Rx/DC Orders Clinical Impression: Chest pain, Anxiety Instructions: ED Abdominal Pain Unkn Cause Fem, ED Anxiety Reaction, ED Chest Pain, Noncardiac Prescriptions: New simethicone 180 mg capsule 180 mg PO BID PRN (Reason: abdominal distention) Qty: 14 0RF lorazepam [Ativan] 0.5 mg tablet 0.5 mg PO BID PRN (Reason: anxiety) Qty: 10 0RF loratadine [Claritin] 10 mg tablet 10 mg PO DAILY Qty: 30 0RF omeprazole 20 mg capsule,delayed release(DR/EC) 20 mg PO DAILY Qty: 30 0RF No Action Trelegy Ellipta 100-62.5-25 mcg blister with device 1 inh inhalation DAILY albuterol sulfate 90 mcg/actuation HFA aerosol inhaler 2 puff inhalation Q4H PRN albuterol sulfate 2.5 mg /3 mL (0.083 %) solution for nebulization 2.5 mg inhalation Q4H PRN Nicotrol 10 mg cartridge 1 inh inhalation ONCE PRN (Reason: nicotine cravings) Qty: 168 8RF atorvastatin 40 mg tablet 40 mg PO DAILY Label Comments: PT PREFERS AT BEDTIME. lisinopril 10 mg tablet 20 mg PO DAILY gabapentin 600 mg tablet 600 mg PO TID Label Comments: TAKE 1 TABLET BY MOUTH THREE TIMES DAILY bupropion HCl 150 mg tablet sustained-release 12 hr 150 mg PO DAILY terbinafine HCl 250 mg tablet 250 mg PO DAILY prednisone 50 mg tablet 50 mg PO DAILY Qty: 5 0RF hydroxyzine pamoate [Vistaril] 25 mg capsule 25 mg PO TID PRN (Reason: anxiety) Qty: 30 0RF Primary Care Provider: Pavan Vaughn Referrals: Pavan Vaughn MD [Primary Care Provider] - Keep [facility] appointment Disposition Disposition: Home, Self Care
--- NOTE | 2023-01-20 09:15 | EKG12_ITS ---
Test Reason : Blood Pressure : / mmHG Vent. Rate : 082 BPM Atrial Rate : 082 BPM P-R Int : 116 ms QRS Dur : 076 ms QT Int : 388 ms P-R-T Axes : 000 059 073 degrees QTc Int : 453 ms Normal sinus rhythm Normal ECG Confirmed by JAIMEE REAL MD ([id number]), slot editor ZIYAD RIVERA ([id number]) on 01/21/2023 11:38:14 AM Referred By: KYAW Confirmed By:JAIMEE REAL MD
[2023-01-20 09:19] LABS: Absolute Neutrophil Count 6.9 X10^3/uL (2.0-7.7); Basophil# 0.04 X10^3/uL; Basophil% 0.5 % (0-1); Eosinophil# 0.04 X10^3/uL; Eosinophils% 0.5 % (0-5); Hematocrit 47.4 % (37-47); Hemoglobin 15.1 g/dL (12.0-15.0); Lymphocyte % 15.8 % (19-41); Mean Corp Hgb Conc 31.9 g/dL (32-36); Mean Corpuscular Hgb 29.9 pg (27.0-32.0); Mean Corpuscular Volume 93.9 fL (81-99); Mean Platelet Vol. 9.8 fl (6.2-12.0); Monocyte# 0.53 X10^3/uL; NRBC Flagged by Analyzer 0 % (0-5); Neutrophil # 6.85 X10^3/uL (2.7-7.7); Platelet Count 379 K/mm3 (150-450); RBC Distribution Width CV 13.5 % (11.6-14.6); RBC Distribution Width SD 46.7 fl (35.1-43.9); Red Blood Count 5.05 M/mm3 (4.2-5.4); White Blood Count 8.9 K/mm3 (4.4-11.0)
[2023-01-20] MEDS: Aspirin 81 MG TAB.CHEW 324 MG PO (09:22)
[2023-01-20] MEDS: 0.9% Normal Saline 1,000 ML 150 ML IV (09:22)
[2023-01-20] MEDS: LORazepam 2 MG/ML Syringe 0.5 MG IV (09:23)
[2023-01-20 09:25] VITALS: O2SAT 97
[2023-01-20 09:28] LABS: Anion Gap 5 (5-15); BUN 10 mg/dL (7-18); BUN/Creat Ratio 9.4 RATIO (10-20); Calcium,Total 9.5 mg/dL (8.5-10.1); Chloride 108 mmol/L (98-107); Creatinine, Serum 1.06 mg/dL (0.55-1.02); EST Glomerular Filtration Rate 55 mL/min (>60); Est Glom Filt Rate - Afr Amer 66 mL/min (>60); Estimated Creatinine Clearance 45.07 ml/min; Glucose 103 mg/dL (74-106); Potassium 3.8 mmol/L (3.5-5.1); Sodium Level 137 mmol/L (136-145); Troponin-I HS (w/2H Reflex) 23 pg/mL (3.0-54.0)
--- NOTE | 2023-01-20 09:28 | RAD_ITS ---
INDICATION: chest pain EXAMINATION/TECHNIQUE: X-RAY - XR Chest 1 View COMPARISON: December 31, 2022 FINDINGS: LINES/DEVICES: None. LUNGS: No consolidation, edema or effusion. No pneumothorax. MEDIASTINUM AND CARDIOVASCULAR STRUCTURES: Cardiac silhouette not enlarged. Central airways and mediastinal contour are unremarkable. BONES AND SOFT TISSUES: Unremarkable. RAD/Chest 1 View (Portable) IMPRESSION: No radiographic evidence of acute cardiopulmonary disease. Electronically Signed: Yissel Davis MD at 9:48 EDT ,
[2023-01-20 09:56] VITALS: BP 146/99; PULSE 78; RESP 18; O2SAT 92
[2023-01-20 11:02] VITALS: BP 150/97; PULSE 73; RESP 14; O2SAT 97
[2023-01-20 11:08] LABS: Reflex Troponin-HS? (from REC) Y
[2023-01-20 11:42] LABS: Troponin-I HS 13 pg/mL (3.0-54.0)
[2023-01-20] MEDS: DiphenhydrAMINE 25 MG Capsule PO (11:56)
[2023-01-20 12:05] VITALS: BP 158/91; PULSE 69; RESP 13; O2SAT 97
== END 2023-01-20 12:26 | disposition home or self-care (01) ==
PROVIDERS: Emergency Provider Emergency Medicine; PCP Family Medicine; Visit Provider Emergency Medicine
DX: R07.9 Chest pain, unspecified (principal); F41.9 Anxiety disorder, unspecified; F12.90 Cannabis use, unspecified, uncomplicated; F17.210 Nicotine dependence, cigarettes, uncomplicated
CPT/HCPCS: 71045; 80048; 84484; 85025; 85379; 93005; 96374; 99285; J7030; A4216

== ENCOUNTER → 2023-01-23 | Outpatient (CLI) | payer MEDICARE, SELFPAY | END | disposition home or self-care (01) | LOC: MFPLAB 16:20 | PROVIDERS: PCP Family Medicine; Visit Provider Family Medicine | DX: Z00.00 Encounter for general adult medical examination without abnormal findings (principal) ==

== ENCOUNTER 2023-01-28 17:24 | Emergency (ER) | payer MEDICARE, SELFPAY ==
[2023-01-28 17:25] VITALS: BP 163/98; PULSE 86; RESP 16; TEMP 35.7; O2SAT 95; BMI 324.7
--- NOTE | 2023-01-28 17:59 | EX.ED.VIS.EY ---
HPI History of Present Illness Chief Complaint: Eye Problem Narrative Narrative: 67-year-old female presents with her relative because of right eye redness. She states that she is on buspirone and trazodone, awoke this morning and her right eye was itchy. She denies any matting or discharge from the eye, no loss of vision. She rubbed her right eye very hard, and developed redness in the white part. She does not wear contact lenses. She denies any loss of vision, and she does not take any blood thinners. She presents mainly because her eye was itchy this morning, in fact both of them were, and she thinks it was secondary to medication and she was concerned about the redness of her right eye. [facility] Medical History Arthritis COPD (chronic obstructive pulmonary disease) High cholesterol HTN (hypertension) Hypercholesterolemia Overactive bladder PAC (premature atrial contraction) Polysubstance abuse Home Medications atorvastatin 40 mg tablet 40 mg PO DAILY Check with primary doctor 07/27/21 [History Last Taken Unknown] lisinopril 10 mg tablet 20 mg PO DAILY Check with primary doctor 07/27/21 [History Last Taken Unknown] bupropion HCl 150 mg tablet,12 hr sustained-release 150 mg PO DAILY Check with primary doctor 12/09/22 [History Last Taken Unknown] gabapentin 600 mg tablet 600 mg PO TID Check with primary doctor 12/09/22 [History Last Taken Unknown] terbinafine HCl 250 mg tablet 250 mg PO DAILY Check with primary doctor 12/09/22 [History Last Taken Unknown] albuterol sulfate 2.5 mg/3 mL (0.083 %) solution for nebulization 2.5 mg inhalation Q4H PRN 12/31/22 [History Last Taken Unknown] albuterol sulfate 90 mcg/actuation aerosol inhaler 2 puff inhalation Q4H PRN 12/31/22 [History Last Taken Unknown] fluticasone fur. 100 mcg-umeclid 62.5 mcg-vilant 25 mcg inhalat.powder (Trelegy Ellipta) 1 inh inhalation DAILY 12/31/22 [History Last Taken Unknown] hydroxyzine pamoate 25 mg capsule (Vistaril) 25 mg PO TID PRN anxiety #30 caps 12/31/22 [Rx Last Taken Unknown] nicotine 10 mg inhalation cartridge (Nicotrol) 1 inh inhalation ONCE PRN nicotine cravings #168 ea 12/31/22 [Rx Last Taken Unknown] prednisone 50 mg tablet 50 mg PO DAILY #5 tabs 12/31/22 [Rx Last Taken Unknown] loratadine 10 mg tablet (Claritin) 10 mg PO DAILY #30 tabs 01/20/23 [Rx Last Taken Unknown] lorazepam 0.5 mg tablet (Ativan) 0.5 mg PO BID PRN anxiety #10 tabs 01/20/23 [Rx Last Taken Unknown] omeprazole 20 mg capsule,delayed release 20 mg PO DAILY #30 CAPSULES 01/20/23 [Rx Last Taken Unknown] simethicone 180 mg capsule 180 mg PO BID PRN abdominal distention #14 caps 01/20/23 [Rx Last Taken Unknown] Allergy/AdvReac Type Severity Reaction Status Date / Time No Known Allergies Allergy Verified 01/28/23 17:24 Family History Father CAD (coronary artery disease) Heart disease CVA (cerebral vascular accident) Mother Colon cancer Surgical History H/O: hysterectomy History of carpal tunnel surgery History of mandibular surgery Social History Smoking Status: Current every day smoker tobacco type: cigarettes alcohol intake: former substance use type: marijuana, crack/cocaine, heroin, amphetamines, sedatives, opiates, painkillers, methamphetamine and prescription drug ROS ROS ED ROS Narrative Constitutional: No fever, no chills. HEENT: No sore throat. No neck pain. No loss of vision. No rhinorrhea. Bilateral eye itchiness. Right eye redness after rubbing hard. Cardiovascular: No chest pain. No palpitations. No pedal edema. Respiratory: No cough, no shortness of breath. Abdominal: No abdominal pain. No nausea. No vomiting. Genitourinary: No dysuria. No hematuria. Musculoskeletal: No myalgias. No arthralgias. Neurologic: No headaches. No dizziness. No lightheadedness. Skin: No rash. No change in color. Psychiatric: No depression. No anxiety. EXAM Physical Exam Narrative Exam Narrative: Afebrile. Vital signs noted. HEENT: Normocephalic. Atraumatic. PERRL, EOMI. Neck soft and supple. No point tenderness or step off. Right eye scleral subconjunctival hemorrhage noted both medially and laterally. Cardiovascular: Regular rate and rhythm. No murmurs, rubs, or gallops appreciated. Respiratory: No tachypnea. Lungs clear to auscultation bilaterally. Gastrointestinal: Abdomen soft, nontender, with normoactive bowel sounds. No rebound or guarding. Neurological: Awake. Alert. Nonfocal, nonlateralizing. Skin: No rash. Normal color. No pallor. Musculoskeletal: No pedal edema. Full range of motion extremities. Const Vital Signs: 01/28/23 17:25 Temperature 96.3 F L Temperature Source Temporal Pulse Rate 86 Respiratory Rate 16 Blood Pressure 163/98 H Blood Pressure Mean 119 Pulse Ox 95 Oxygen Delivery Method Room Air MDM MDM MDM Narrative Medical decision making narrative: I had a lengthy discussion with the patient regarding subconjunctival hemorrhage. Her relative is concerned that she may have an ulcer, but she does not have reason to have 1 if she does not wear contact lenses. They were also concerned about corneal abrasion even after rubbing her eye. Fluorescein will be instilled in the right eye after tetracaine and be examined under Dixon lamp/bluelight. I do not feel that antibiotics or imaging is indicated currently. I did order tetracaine and fluorescein. When I went to return to the room, I was informed that the patient had eloped from the emergency department. I had discussed with her that there is no real treatment for the subconjunctival hemorrhage prior to her elopement. Patient was in stable condition. Discharge Plan Triage Chief Complaint: Eye Problem ED Provider: Abhishek Smith Dx/Rx/DC Orders Clinical Impression: Subconjunctival hemorrhage of right eye, Eloped from emergency department Instructions: ED Subconjunctival Hemorrhage Prescriptions: No Action Trelegy Ellipta 100-62.5-25 mcg blister with device 1 inh inhalation DAILY albuterol sulfate 90 mcg/actuation HFA aerosol inhaler 2 puff inhalation Q4H PRN albuterol sulfate 2.5 mg /3 mL (0.083 %) solution for nebulization 2.5 mg inhalation Q4H PRN Nicotrol 10 mg cartridge 1 inh inhalation ONCE PRN (Reason: nicotine cravings) Qty: 168 8RF atorvastatin 40 mg tablet 40 mg PO DAILY Label Comments: PT PREFERS AT BEDTIME. lisinopril 10 mg tablet 20 mg PO DAILY gabapentin 600 mg tablet 600 mg PO TID Label Comments: TAKE 1 TABLET BY MOUTH THREE TIMES DAILY bupropion HCl 150 mg tablet sustained-release 12 hr 150 mg PO DAILY terbinafine HCl 250 mg tablet 250 mg PO DAILY prednisone 50 mg tablet 50 mg PO DAILY Qty: 5 0RF hydroxyzine pamoate [Vistaril] 25 mg capsule 25 mg PO TID PRN (Reason: anxiety) Qty: 30 0RF simethicone 180 mg capsule 180 mg PO BID PRN (Reason: abdominal distention) Qty: 14 0RF lorazepam [Ativan] 0.5 mg tablet 0.5 mg PO BID PRN (Reason: anxiety) Qty: 10 0RF loratadine [Claritin] 10 mg tablet 10 mg PO DAILY Qty: 30 0RF omeprazole 20 mg capsule,delayed release(DR/EC) 20 mg PO DAILY Qty: 30 0RF Primary Care Provider: Pavan Vaughn Referrals: Pavan Vaughn MD [Primary Care Provider] - Disposition Disposition: Elopement
[2023-01-28] MEDS: Fluorescein 1 MG STRIP 1 STRIP OPHTHALMIC (18:09)
[2023-01-28] MEDS: Tetracaine 0.5% Ophthalmic Bottle 1 DRP OPHTHALMIC (18:09)
--- NOTE | 2023-01-28 19:12 | ED.RN ---
pt ambulated from er because she didn't want to wait any longer
== END 2023-01-28 19:10 | disposition left against medical advice (07) ==
PROVIDERS: Emergency Provider Emergency Medicine; PCP Family Medicine; Visit Provider Emergency Medicine
DX: H11.31 Conjunctival hemorrhage, right eye (principal); F12.90 Cannabis use, unspecified, uncomplicated; F17.210 Nicotine dependence, cigarettes, uncomplicated
CPT/HCPCS: 99281; 99282

== ENCOUNTER 2023-02-07 07:31 | Emergency (ER) | payer MEDICARE, SELFPAY ==
[2023-02-07 07:31] VITALS: BP 172/104; PULSE 92; RESP 16; TEMP 35.7; O2SAT 98; BMI 31.8
--- NOTE | 2023-02-07 08:10 | RAD_ITS ---
STUDY: X-RAY - RIGHT KNEE REASON FOR EXAM: Female, 67 years old. Injury/Pain TECHNIQUE: 4 view(s) of the knee. COMPARISON: None. FINDINGS: Normal visualized distal femur. Normal visualized proximal tibia and fibula. Normal proximal tibiofibular articulation. Normal medial femorotibial compartment. Normal lateral femorotibial compartment. Normal patellofemoral articulation. The soft tissue structures are unremarkable. RAD/Knee 4 or More Views IMPRESSION: Normal x-ray examination of the knee. Electronically Signed: Sree Burgess MD at 8:33 EDT ,
--- NOTE | 2023-02-07 08:17 | ED.VIS.LOWEX ---
HPI History of Present Illness HPI Narrative: Patient presents with right knee pain that has been getting progressively worse over the past 1-1/2 weeks. Patient states it is gradually getting worse. Patient states it has been constant. Patient describes her pain as stabbing and aching. Patient states it is worse with movement and ambulation. Patient denies any paresthesias or weakness. Patient denies any trauma or injury. Patient denies any fevers or chills. Patient states her pain does radiate down to her anterior right lower leg. Patient denies any calf pain. Patient denies any swelling. Chief Complaint: Lower Extremity Injury Informant: patient Onset/Context/Timing Onset: Weeks (1.5) Context: Gradual Onset Timing: Continuous Quality of Pain: Aching and Stabbing Location: Medial aspect right knee Worsened by: Movement and ambulation Relieved by: Nothing Associated Symptoms Associated Symptoms: Negative for Parasthesia, Weakness or Loss of Funtion [facility] History Arthritis COPD (chronic obstructive pulmonary disease) High cholesterol HTN (hypertension) Hypercholesterolemia Overactive bladder PAC (premature atrial contraction) Polysubstance abuse Home Medications atorvastatin 40 mg tablet 40 mg PO DAILY Check with primary doctor 07/27/21 [History Last Taken Unknown] lisinopril 10 mg tablet 20 mg PO DAILY Check with primary doctor 07/27/21 [History Last Taken Unknown] bupropion HCl 150 mg tablet,12 hr sustained-release 150 mg PO DAILY Check with primary doctor 12/09/22 [History Last Taken Unknown] gabapentin 600 mg tablet 600 mg PO TID Check with primary doctor 12/09/22 [History Last Taken Unknown] terbinafine HCl 250 mg tablet 250 mg PO DAILY Check with primary doctor 12/09/22 [History Last Taken Unknown] albuterol sulfate 2.5 mg/3 mL (0.083 %) solution for nebulization 2.5 mg inhalation Q4H PRN 12/31/22 [History Last Taken Unknown] albuterol sulfate 90 mcg/actuation aerosol inhaler 2 puff inhalation Q4H PRN 12/31/22 [History Last Taken Unknown] fluticasone fur. 100 mcg-umeclid 62.5 mcg-vilant 25 mcg inhalat.powder (Trelegy Ellipta) 1 inh inhalation DAILY 12/31/22 [History Last Taken Unknown] hydroxyzine pamoate 25 mg capsule (Vistaril) 25 mg PO TID PRN anxiety #30 caps 12/31/22 [Rx Last Taken Unknown] nicotine 10 mg inhalation cartridge (Nicotrol) 1 inh inhalation ONCE PRN nicotine cravings #168 ea 12/31/22 [Rx Last Taken Unknown] prednisone 50 mg tablet 50 mg PO DAILY #5 tabs 12/31/22 [Rx Last Taken Unknown] loratadine 10 mg tablet (Claritin) 10 mg PO DAILY #30 tabs 01/20/23 [Rx Last Taken Unknown] lorazepam 0.5 mg tablet (Ativan) 0.5 mg PO BID PRN anxiety #10 tabs 01/20/23 [Rx Last Taken Unknown] omeprazole 20 mg capsule,delayed release 20 mg PO DAILY #30 CAPSULES 01/20/23 [Rx Last Taken Unknown] simethicone 180 mg capsule 180 mg PO BID PRN abdominal distention #14 caps 01/20/23 [Rx Last Taken Unknown] hydrocodone-acetaminophen 5-325mg 5mg-325mg 1 tab PO Q6H PRN PRN Pain 3 days #10 TABLETS 02/07/23 [Rx Last Taken Unknown] naproxen 500 mg tablet 500 mg PO BID PRN #20 tabs 02/07/23 [Rx Last Taken Unknown] Allergy/AdvReac Type Severity Reaction Status Date / Time No Known Allergies Allergy Verified 02/07/23 07:31 Family History Father CAD (coronary artery disease) Heart disease CVA (cerebral vascular accident) Mother Colon cancer Surgical History H/O: hysterectomy History of carpal tunnel surgery History of mandibular surgery Social History Smoking Status: Current every day smoker tobacco type: cigarettes alcohol intake: former substance use type: marijuana, crack/cocaine, heroin, amphetamines, sedatives, opiates, painkillers, methamphetamine and prescription drug ROS ROS ED Constitutional Constitutional ED: Denies chills or fever(s) Eyes Eyes: Denies blurry vision or change in vision ENT ENT ED: Denies rhinorrhea or sore throat Cardiovascular Cardiovascular: Denies chest pain or palpitations Respiratory/Chest Respiratory/Chest: Denies cough or dyspnea Gastrointestinal Gastrointestinal: Denies nausea or vomiting Genitourinary Genitourinary ED: Denies dysuria or hematuria Musculoskeletal Musculoskeletal: Denies back pain or neck pain Integumentary Denies abscess or rash Neurologic Neurologic: Denies headache(s) or weakness Allergic/Immunologic Allergic/Immunologic ED: Denies mouth swelling or urticaria EXAM Physical Exam Const Vital Signs: 02/07/23 07:31 Temperature 96.2 F L Temperature Source Temporal Pulse Rate 92 Respiratory Rate 16 Blood Pressure 172/104 H Blood Pressure Mean 126 Pulse Ox 98 Oxygen Delivery Method Room Air Positive well nourished and well developed General Appearance ED: well developed and NAD HEENT Reports moist mucous membranes atraumatic Extremity Extremity Narrative: There is tenderness over the medial aspect of the right knee. There is no edema or ecchymosis. There is no bony crepitance or step-off. Range of motion was limited in all motions of the right knee secondary to pain. There is pain with valgus stress testing but there is no laxity appreciated. There is mild pain with Glenn's testing but there is no laxity appreciated. There is no pain or laxity appreciated with varus testing. There is no calf tenderness noted. Pedal pulses are equal bilaterally. Sensation was intact to light touch in all digits. Capillary refills less than 2 seconds in all digits. Neuro oriented x3, CN's II-XII intact bilaterally, moves all extremities and no sensory deficits noted Sensorium / Orientation: alert Motor Exam: strength 5/5 throughout Psych mental status grossly normal MDM MDM MDM Narrative Medical decision making narrative: Differential diagnosis includes degenerative arthritis, occult fracture, tendinitis, ligament strain, and contusion. X-rays of the left knee will be obtained to assess for fracture and effusion. Radiography Diagnostic Testing: Clinical Impression(s) from Imaging Studies Knee X-Ray 02/07/23 08:10 IMPRESSION: Normal x-ray examination of the knee. Electronically Signed: Sree Burgess MD at 8:33 EDT , X-rays of the right knee were obtained. There are 4 views. On my independent interpretation, there is no acute fracture. There is no dislocation. There is no effusion. Radiologist also interpreted the x-rays and agrees. Treatment and Re-Evaluation Narrative: Patient was advised of findings. Patient was instructed to ice and elevate the right knee. Patient was given a prescription for Naprosyn and a short course of [place]. Patient was instructed that we will follow-up with her primary care physician in 5 to 7 days. Patient understood and was agreeable with the plan. All questions were answered. Discharge Plan Triage Chief Complaint: Lower Extremity Injury ED Provider: Gelacio Valdes Dx/Rx/DC Orders Clinical Impression: Right knee sprain, COPD (chronic obstructive pulmonary disease), Tobacco abuse Instructions: ED Knee Sprain Prescriptions: New hydrocodone-acetaminophen [hydrocodone-acetaminophen] 5-325 mg tablet 1 tab PO Q6H PRN PRN (Reason: Pain) 3 Days Qty: 10 0RF naproxen 500 mg tablet 500 mg PO BID PRN Qty: 20 0RF No Action Trelegy Ellipta 100-62.5-25 mcg blister with device 1 inh inhalation DAILY albuterol sulfate 90 mcg/actuation HFA aerosol inhaler 2 puff inhalation Q4H PRN albuterol sulfate 2.5 mg /3 mL (0.083 %) solution for nebulization 2.5 mg inhalation Q4H PRN Nicotrol 10 mg cartridge 1 inh inhalation ONCE PRN (Reason: nicotine cravings) Qty: 168 8RF atorvastatin 40 mg tablet 40 mg PO DAILY Label Comments: PT PREFERS AT BEDTIME. lisinopril 10 mg tablet 20 mg PO DAILY gabapentin 600 mg tablet 600 mg PO TID Label Comments: TAKE 1 TABLET BY MOUTH THREE TIMES DAILY bupropion HCl 150 mg tablet sustained-release 12 hr 150 mg PO DAILY terbinafine HCl 250 mg tablet 250 mg PO DAILY prednisone 50 mg tablet 50 mg PO DAILY Qty: 5 0RF hydroxyzine pamoate [Vistaril] 25 mg capsule 25 mg PO TID PRN (Reason: anxiety) Qty: 30 0RF simethicone 180 mg capsule 180 mg PO BID PRN (Reason: abdominal distention) Qty: 14 0RF lorazepam [Ativan] 0.5 mg tablet 0.5 mg PO BID PRN (Reason: anxiety) Qty: 10 0RF loratadine [Claritin] 10 mg tablet 10 mg PO DAILY Qty: 30 0RF omeprazole 20 mg capsule,delayed release(DR/EC) 20 mg PO DAILY Qty: 30 0RF Primary Care Provider: Pavan Vaughn Referrals: Pavan Vaughn MD [Primary Care Provider] - 5-7 Days Disposition Disposition: Home, Self Care
== END 2023-02-07 09:35 | disposition home or self-care (01) ==
PROVIDERS: Emergency Provider Emergency Medicine; PCP Family Medicine; Visit Provider Emergency Medicine
DX: S83.91XA Sprain of unspecified site of right knee, initial encounter (principal); J44.9 Chronic obstructive pulmonary disease, unspecified; F12.90 Cannabis use, unspecified, uncomplicated; F17.210 Nicotine dependence, cigarettes, uncomplicated; X58.XXXA Exposure to other specified factors, initial encounter
CPT/HCPCS: 73564; 99282